=== PATIENT | female | born 1990 | race Caucasian/White ===

== ENCOUNTER 2021-07-08 08:18 | Outpatient (CLI) | payer BC, SELFPAY ==
[2021-07-08 09:07] LABS: Hemoglobin A1C 5.1 % (<5.7)
[2021-07-08 09:12] LABS: Anion Gap 9 mmol/L (8-16); Blood Urea Nitrogen 9 mg/dL (7-18); Calcium 9.1 mg/dL (8.5-10.1); Carbon Dioxide 29 mmol/L (21-32); Chloride 102 mmol/L (98-108); Cholesterol 180 mg/dL (0-200); Estimated Glomerular Filt Rate > 60; Glucose 114 mg/dL (70-99); HDL Direct 43 mg/dL (40-60); LDL Cholesterol Calculated 108 mg/dL (<130); Osmolality Calculated 289 mOsm/kg (285-295); Potassium 4.5 mmol/L (3.5-5.1); Sodium 140 mmol/L (136-145); Triglycerides 146 mg/dL (0-150)
== END 2021-07-08 08:19 | disposition home or self-care (01) ==
LOC: CHSLAB 08:23
PROVIDERS: PCP Internal Medicine; Visit Provider Internal Medicine
DX: Z00.00 Encounter for general adult medical examination without abnormal findings (principal)
CPT/HCPCS: 36415; 80048; 80061; 83036

== ENCOUNTER 2022-03-14 08:08 | Outpatient (CLI) | payer BC, SELFPAY ==
[2022-03-14 08:33] LABS: Hemoglobin A1C 5.3 % (<5.7)
[2022-03-14 08:56] LABS: Anion Gap 7 mmol/L (8-16); Blood Urea Nitrogen 11 mg/dL (7-18); Calcium 8.7 mg/dL (8.5-10.1); Carbon Dioxide 29 mmol/L (21-32); Chloride 106 mmol/L (98-108); Estimated Glomerular Filt Rate > 60; Glucose 96 mg/dL (70-99); Osmolality Calculated 293 mOsm/kg (285-295); Potassium 4.4 mmol/L (3.5-5.1); Sodium 142 mmol/L (136-145)
== END 2022-03-14 08:09 | disposition home or self-care (01) ==
LOC: CHSLAB 08:13
PROVIDERS: PCP Internal Medicine; Visit Provider Internal Medicine
DX: E16.2 Hypoglycemia, unspecified (principal)
CPT/HCPCS: 36415; 80048; 83036

== ENCOUNTER 2023-03-22 07:26 | Outpatient (CLI) | payer BC, SELFPAY ==
[2023-03-22 08:00] LABS: Hemoglobin A1C 5.5 % (<5.7)
[2023-03-22 08:34] LABS: Alanine Aminotransferase 25 U/L (14-59); Albumin Level 3.4 g/dL (3.4-5.0); Alkaline Phosphatase 81 U/L (46-116); Anion Gap 9 mmol/L (8-16); Aspartate Amino Transferase 11 U/L (15-37); Bilirubin,Total 0.4 mg/dL (0.00-1.00); Blood Urea Nitrogen 9 mg/dL (7-18); Calcium 9.4 mg/dL (8.5-10.1); Carbon Dioxide 28 mmol/L (21-32); Chloride 103 mmol/L (98-108); Cholesterol 152 mg/dL (0-200); Estimated Glomerular Filt Rate > 60; Glucose 92 mg/dL (70-99); HDL Direct 38 mg/dL (40-60); LDL Cholesterol Calculated 60 mg/dL (<130); Osmolality Calculated 288 mOsm/kg (285-295); Potassium 4.7 mmol/L (3.5-5.1); Sodium 140 mmol/L (136-145); Total Protein 7.1 g/dL (6.4-8.2); Triglycerides 271 mg/dL (0-150)
== END 2023-03-22 07:27 | disposition home or self-care (01) ==
LOC: CHSLAB 07:28
PROVIDERS: PCP Internal Medicine; Visit Provider Internal Medicine
DX: Z00.00 Encounter for general adult medical examination without abnormal findings (principal); E28.2 Polycystic ovarian syndrome
CPT/HCPCS: 36415; 80053; 80061; 83036

== ENCOUNTER 2024-03-20 06:58 | Outpatient (CLI) | payer BC, SELFPAY ==
[2024-03-20 08:46] LABS: Alanine Aminotransferase 27 U/L (14-59); Albumin Level 3.4 g/dL (3.4-5.0); Alkaline Phosphatase 69 U/L (46-116); Anion Gap 13 mmol/L (4-12); Aspartate Amino Transferase 11 U/L (15-37); Bilirubin,Total 0.2 mg/dL (0.00-1.00); Blood Urea Nitrogen 9 mg/dL (7-18); Calcium 8.5 mg/dL (8.5-10.1); Carbon Dioxide 22 mmol/L (21-32); Chloride 107 mmol/L (98-108); Cholesterol 170 mg/dL (0-200); Estimated Glomerular Filt Rate > 60; Glucose 96 mg/dL (70-99); HDL Direct 38 mg/dL (40-60); LDL Cholesterol Calculated 51 mg/dL (<130); Osmolality Calculated 292 mOsm/kg (285-295); Potassium 4.5 mmol/L (3.5-5.1); Sodium 142 mmol/L (136-145); Total Protein 7.1 g/dL (6.4-8.2); Triglycerides 406 mg/dL (0-150)
[2024-03-20 08:56] LABS: LDL Cholesterol Direct 73 mg/dL (0-130)
== END 2024-03-20 06:59 | disposition home or self-care (01) ==
LOC: CHSLAB 07:01
PROVIDERS: PCP Internal Medicine; Visit Provider Internal Medicine
DX: Z00.00 Encounter for general adult medical examination without abnormal findings (principal)
CPT/HCPCS: 36415; 80053; 80061; 83721

== ENCOUNTER 2024-07-05 14:53 | Emergency (ER) | payer BC, SELFPAY ==
--- OUTSIDE RECORDS SUMMARY | 2024-07-05 14:55 | XMS_ITS | Referral Summary ---
Author Organization [facility] Medical Office Building A Address [address] [place] [address] Care Team Providers Care Diesel Crane Operator Name Role Phone Siddhartha Jhaveri MD Primary Care Provider Encounters Date Type Department Care Team Description 07/02/2024 Orders Only [address] [address] Amalia Collier NP 07/01/2024 4:13 PM [employer] - 07/01/2024 11:59 PM [employer] Hospital Encounter [address] [address] Acute vaginitis Discharge Disposition: Discharge to home or self care 07/01/2024 3:15 PM [employer] Office Visit [facility] Replaced By [facility] at [address] [address] Ban Barton PA Acute vaginitis (Primary Dx) from Last 3 Months Allergies No known active allergies Medications albuterol HFA (ProAir HFA) 90 mcg/actuation inhaler Inhale 2 puffs every 4 (four) hours as needed for wheezing 1 Inhaler 11 Active omeprazole (PriLOSEC) 20 mg capsuleIndicati ons:Laryngophar yngeal reflux (LPR) TAKE 1 CAPSULE BY MOUTH EVERY DAY 90 capsule 3 2 Active diclofenac sodium (VOLTAREN) 1 % gel Apply 2 g topically 4 (four) times a day 100 g 3 Active topiramate (TOPAMAX) 50 mg tablet TAKE 1 TABLET BY MOUTH TWICE A DAY 180 tablet 3 4 Active omeprazole (PriLOSEC) 20 mg capsule TAKE 1 CAPSULE BY MOUTH EVERY DAY 90 capsule 3 4 Active busPIRone (BUSPAR) 10 mg tablet TAKE 1 TABLET BY MOUTH THREE TIMES A DAY 300 tablet 1 4 Active buPROPion XL (WELLBUTRIN XL) 300 mg 24 hr tabletIndicatio ns:Anxiety with Depression TAKE 1 TABLET (300 MG TOTAL) BY MOUTH EVERY MORNING THIS REPLACES LEXAPRO 100 tablet 1 4 08/09/19 25 Active metFORMIN XR (GLUCOPHAGE XR) 500 mg 24 hr tablet TAKE 2 TABLETS BY MOUTH DAILY WITH BREAKFAST. 180 tablet 4 Active metroNIDAZOLE (FLAGYL) 500 mg tablet Take 1 tablet (500 mg total) by mouth 2 (two) times a day for 7 days 14 tablet 5 07/08/19 25 Active Active Problems Problem Noted Date Diagnosed Date Severe obesity 03/27/2024 Moderate episode of recurrent major depressive d isorder 03/27/2024 Anxiety 07/30/2022 Assessment & Plan (10/07/2022 1:54 PM CDT): Improved. She is sleeping better with the Topamax at bedtime. She is also found that getting new glasses has helped with their dizziness Assessment & Plan (07/30/2022 1:29 PM PRECINCT POLICE LIEUTENANT): States she is in a better place right now with her life and doesn't feel as anxious as when the kids were little. Would like to go off lexapro instead of changing it. Decrease lexapro to 10mg x 2 weeks, then 5mg x 7 days, then stop. Pt is taking upwards of 10mg of melatonin up to 30mg. Also smokes marijuana on/off all day long. Discussed that melatonin can causes vertigo and possibly headaches. Marijuana user 07/30/2022 Assessment & Plan (07/30/2022 8:54 PM [employer]CIN[employer] POLICE [employer]IEUTENANT): Daily use Intractable headache 07/18/2022 Assessment & Plan (07/30/2022 1:29 PM [employer]IEUTENANT): Will try adding topamax 25mg at bedtime. D/c melatonin, which she is taking too much of. Could be contributing to vertigo and headaches. F/u 6 weeks Assessment & Plan (07/18/2022 3:00 PM [employer] POLICE LIEUTENANT): Having migraines with onset during sexual relations. She has tried propranolol a few times as given by NEIDA Zepeda last week without improvement. Will give indomethacin to try as alternative. Briefly discussed triptan. Will try indomethacin first. Discussed GI SE's. Will only take prn. Call if continues to have headaches COVID-19 07/18/2022 Assessment & Plan (07/18/2022 2:58 PM [employer] POLICE [employer]IEUTENANT): Discussed quarantine, offered paxlovid, discussed risks/benefits. Patient declines at this time. Symptoms are mild. Indomethacin given for current headache as well as future headaches prn. May f/u prn Diaphoresis 07/18/2022 Assessment & Plan (07/18/2022 2:59 PM PRECINCT POLICE LIEUTENANT): Having night sweats. She asked what they could be from. Discussed they could actually be from SE's of antidepressant. She expressed an interest in changing antidepressant. I told her she cannot just stop this medication and encouraged her to make a f/u in 1-2 weeks with provider to discuss changing antidepressant. Tobacco abuse 06/20/2021 Vocal process granuloma 09/19/2020 Assessment & Plan (09/19/2020 4:47 PM CDT): Continue omeprazole 40 mg daily for at least 2 more months, then may consider decreasing to 20 mg daily Follow up for recheck in 4 months for rescope to check Right posterior vocal fold granuloma Discussed MDL with removal of right vocal fold granuloma discussed but Millicent reported being unable to take any more time off of work right now Laryngopharyngeal reflux (LPR) 07/19/2020 Assessment & Plan (09/19/2020 4:44 PM CDT): Continue omeprazole 40 mg daily for at least 2 more months, then may consider decreasing to 20 mg daily Follow up for recheck in 4 months for rescope to check Right posterior vocal fold granuloma Assessment & Plan (07/19/2020 9:34 AM PREC[employer] POLICE LIEUTENANT): 64 ounces of caffeine free and soda free fluid daily Continue omeprazole 20 mg Follow up in 2 months to recheck right posterior vocal cord granuloma LPR discussed and Handout provided Depression 02/20/2018 Assessment & Plan (10/07/2022 1:53 PM CDT): Depression moderately improved. Will increase Wellbutrin XL to 300 mg once daily. Will let her follow-up with Dr. Jhaveri as scheduled in February for well visit but she may call if she has any problems or concerns in the interim HSV infection 10/29/2017 Overview (01/09/2018): -Treated for outbreak this -continue suppression Hospital plan -[place] Essential hypertension, benign 02/05/2017 Overview (01/09/2018): Continue Nifed 30XL Assessment & Plan (02/07/2017 9:46 AM CDT): Stable. Pt was advised of continuing heart healthy DASH diet, increase exercise as tolerated, and continuing to monitor for any lower leg edema, headaches, changes in vision, or facial flushing. Continue ASA and anti-hypertensives as prescribed. Polycystic ovary syndrome Resolved Problems Problem Noted Date Diagnosed Date Resolved Date Voice hoarseness 07/19/2020 07/18/2022 Assessment & Plan (07/19/2020 9:34 AM PRE[employer]IN[employer] POLICE [employer]IEUTENANT): 64 ounces of caffeine free and soda free fluid daily Continue omeprazole 20 mg Follow up in 2 months to recheck right posterior vocal cord granuloma Choking episode 07/19/2020 07/18/2022 Assessment & Plan (07/19/2020 9:22 PM [employer]): 64 ounces of caffeine free and soda free fluid daily Continue omeprazole 20 mg Follow up in 2 months to recheck right posterior vocal cord granuloma Ganglion cyst of volar aspect of right wrist 0 07/25/2020 Carpal tunnel syndrome of right wrist 03/04/2020 07/25/2020 Overview (03/04/2020): Added automatically from request for surgery [id number] Ganglion of right wrist 03/04/2020 03/0 05/2020 Overview (03/04/2020): Added automatically from request for surgery [id number] Paresthesia of hand, bilateral 10/09/2019 07/18/2022 Assessment & Plan (10/09/2019 9:20 AM CDT): D/T limited examination from telemedicine visit, but based on patient's presenting sx likely more BL median nerve disease recommending BL upper extremity nerve conduction testing along with consultation to plastic specialist for further evaluation. Pt was advised to Cnt. With wearing brace, modifying daily activities an attempt OTC analgesics creams an oral medication and further direction pending upcoming NCV, consultation Difficulty of mother performing 01/01/20 18 07/18/2022 Viral gastroenteritis 12/05/20172017 Overview (12/05/2017): Seen in [facility] 12/04 for n/v/d. MRI without appendicitis and e/o colitis. Rx for zofran/imodium for symptomatic relief Supervision of high-risk pre gnancy, third trimester 12/05/2017 01/23/2018 Overview (12/16/2017): Added automatically from request for surgery [id number] Chronic hypertension affecting 10/29/2017 01/09/2018 Overview (01/02/2018): -Previously discussed risks associated with cHTN -Baseline CBC and CMP wnl, 24 hr 315mg -Current regimen Nifedipine 30mg XL, will plan to increase as needed -Compliant with baby aspirin -plan for serial growths at 24 weeks, recommendations reviewed for 2x/weekly NSTs but patient states she can only come to [facility] 1x/week. Accepts risks, including stillbirth -continues to have headaches, rx previously sent for compazine, patient does not wish to take it -CBC, CMP wnl 12/24/17 UPC 0.3 (baseline 24 hr 315mg) - Steroids given 12/25 and 12/26. Plan for weekly labs- order placed -r/o for preE in 12/30 in the [facility], rx for fioricet -rC/S scheduled 01/09/18 at 11:30 -review of BP log 01/02 shows normal to mild range, no symptoms Assessment & Plan (12/24/2017 4:14 PM CDT): BP log reviewed. All blood pressures normal/mild range. Reviewed BP parameters and [facility] precautions Continues to have headaches that resolve with tylenol or rest, patient has rx for compazine but does not want to take it. Reviewed that compazine is safe in . Assessment & Plan (12/19/2017 4:47 PM CDT): BP log reviewed. All wnl Urine dip negative for protein Precautions and parameters reviewed again today Assessment & Plan (11/28/2017 3:35 PM CDT): - Normotensive today, reports occasional headaches that resolve with tylenol - Denies blurred or double vision - Strict [facility] precautions reviewed Assessment & Plan (11/14/2017 7:06 PM CDT): BP normal today, denies symptoms of preE Assessment & Plan (10/31/2017 3:13 PM CDT): BP normal today, denies symptoms of preE Previous section co mplicating 10/29/2017 01/09/2018 Overview (12/19/2017): - Repeat scheduled 01/13 at 11:30 with BTL Tobacco smoking affecting pr egnancy, antepartum 10/29/2017 01/09/2018 Overview (11/28/2017): - No longer interested in quitting - Reviewed importance of cessation at length - Patient will continue to consider Single umbilical artery affe cting management of mother, antepartum, single gestation 10/29/2017 01/09/2018 Overview (11/12/2017): -Single UA: previously reviewed risks for IUGR, already for serial growth US as above -Suboptimal heart views x2 on specialized - ECHO NORMAL Depression affecting 10/29/2017 01/09/2018 Overview (12/24/2017): -anxious but stable -denies history of depression or anxiety but states she has always been emotional and feels more emotional during -discussed referral for [facility], patient declines, contact information provided -Rx sent for lexapro 10 MG, patient no longer desires to start medication. Previously counseled on risks including TTN, delayed transition, PPHN -Reports feeling anxious about developing preE. Plan for weekly appointments until delivery. -Strict precautions reviewed -CTM Assessment & Plan (12/19/2017 4:46 PM CDT): Anxious today as this was the gestational age she delivered her last baby. Reassurance provided. Will continue to monitor Assessment & Plan (11/28/2017 3:37 PM CDT): - mood stable today Assessment & Plan (10/31/2017 3:17 PM CDT): Tearful and anxious again in the office today. States she is only emotional during appointments because she gets nervous that we are going to given her bad news. Reviewed recommendation for Lexapro. Continues to decline. Reviewed information for [facility]. Reports great support and denies SI/HI Supervision of other high ri sk , antepartum 10/29/2017 01/09/2018 Overview (01/09/2018): [] Co-management vs. [x] Full M Care Referring Provider: [x] Dating Criteria: DIAMOND 01/23/18 by 2T US [x] Labs: Rh [+], Ab [neg], Rubella [Imm], HIV [neg], HepBSAg [neg], RPR [NR] [x] Genetic Screening: counseled and declines [x] GC/CT: neg [x] UCx: + GBS, treated AIRAM neg [x] Pap: 05/31/17 neg [x] [facility] referral (if indicated): offered and declined [x] FMLA paperwork completed and faxed. 2nd Tri Labs: [x] Anatomy ultrasound: complete single UA [x] CBC: 11.3/32.8 plt 169 [x] 1hr gtt at 24-28wks: failed, GDM [x] Tdap (27-36wks) 3rd Tri Labs: [x] CBC/HIV/RPR [x] GBS- GBS + pyuria- for treatment in labor Counselling [x] MOD: Plan rCS 01/13/2018 at 38w4d 2/2 cHTN. Reviewed recommendation for 39 weeks but patient request date of 01/13. Per ACOG delivery between 38-39 weeks. C/S with BTL scheduled 01/13/2018 @ 1130 (arrival 0930). [x] MOC: BTL [x] Method of feeding: plans to breastfeed [x] PP Depression Discussed Assessment & Plan (10/31/2017 3:18 PM CDT): -Reports increased discharge -Speculum exam with normal discharge -Precautions reviewed Gestational diabetes mellitus, antepartum 10/29/2017 01/09/2018 Overview (01/09/2018): -Metformin 500mg BID started 10/24 -Reviewed 12/24/17- no changes -Sending weekly BS logs for review -s/p steroids -good control Hospital plan -Accucheck on arrival -PP fasting accucheck Assessment & Plan (12/24/2017 4:09 PM CDT): BS log reviewed with excellent control Assessment & Plan (12/19/2017 4:45 PM CDT): Excellent control. Assessment & Plan (11/28/2017 3:35 PM CDT): - BS log reviewed with good control. No changes at this time Assessment & Plan (11/14/2017 7:08 PM CDT): Excellent control, no changes made today Assessment & Plan (10/31/2017 3:18 PM CDT): BS log reviewed with excellent control. Will continue on current regimen UTI in 09/09/2017 01/23/2018 History of severe pre-eclampsia 09/03/2017 07/18/2022 Previous delivery, antepartum 07/25/2017 01/23/2018 Pharyngitis 04/16/2017 10/29/2017 Assessment & Plan (04/16/2017 1:35 PM [employer]ENANT): Strep screen neg and aba setup a culture. Gargle with 1/2 peroxide and water several time s a day Bilateral serous otitis media 04/16/2017 10/29/2017 Assessment & Plan (04/16/2017 1:34 PM [employer] POL[employer] LIEUTENANT): ers are not infected. The bluntingo fthehhering is fromt he fluid in ear. Trial flonase and see if helpful BMI 37.0-37.9, adult 02/07/2017 023 Assessment & Plan (02/07/2017 9:46 AM CDT): Recommended patient to continue to increase heart healthy diet with adequate fruits, vegetables, and plenty of water along with mild-moderate daily exercise as tolerated. Pansinusitis 02/07/2017 10/29/2017 Assessment & Plan (02/07/2017 9:47 AM CDT): Recommended Flonase [id number] to assist with inter nasal congestion along with Ceftin 250 b.i.d. times 10 days patient was advised to follow up with us regarding any persistence or any worsening of symptoms regarding this condition. Abnormal liver enzymes 10/11/201510/29 Overview (08/30/2016): Elevated liver enzymes Calculus of gallbladder 09/26/201509/2017 Overview (08/30/2016): Gallstone Low back pain 10/25/2011 10/29/2017 Overview (08/31/2016): LUMBAGO Supervision of normal 12/31/2017 Carpal tunnel syndrome of left wrist 07/18/2022 Immunizations Name Administration Dates Next Due DTP 02/15/1995, 2,06/24/1990,03/27/1990,0 01/07/1990 Hep B, Adolescent or Pediatric 05/10/1999,1998 Hib (HbOC) 04/14/1991,09/29/1990,06/24/1990 ,03/27/1990 Influenza, Unspecified 03/27/2024(Deferr ed: Patient Refused),03/27/2024(Deferred: Patient Refused),03/22/2023(Deferred: Patient Refused),07/18/2022,07/12/2022(Deferred: Patient Refused),02/24/2021,02/24/2021(Deferred: Patient Refused),01/25/2021(Deferred: Patient Refused),07/01/2020(Deferred: Patient Refused),02/25/2020(Deferred: Patient Refused),05/14/2019(Deferred: Patient Refused),02/24/2019(Deferred: Patient Refused),02/24/2018(Deferred: Patient Refused) MMR 02/15/1995,04/14/1991 OPV 02/15/1995,05/29/1991,03/27/1990 ,01/07/1990 Tdap 10/31/2017 Varicella 02/15/1995 Social History Tobacco Use Types Packs/Day Years Used Date Smoking Tobacco: Every Day Cigarettes Smokeless Tobacco: Never Tobacco Cessation:Ready to Q uit: Not Asked; Counseling Given: Not Answered Comments:Smoking History Packs/day: 8 Cigarettes Alcohol Use Standard Drinks/Week Comments [...] on file Legal Sex Female 12:32 AM [employer]CINCT [employer] L[employer]ENANT Gender Identity Not on file Sexual Orientation Not on file Last Filed Vital Signs Vital Sign Reading Time Taken Comments Blood Pressure 121/88 07/01/2024 3:21 PM [employer]IE[employer]ENANT Pulse 83 07/01/2024 3:21 PM [employer]CT POLICE LIEUTENANT Temperature 36.9 C (98.5 F) 07/01/2024 3:21 PM [employer]CT POLICE LIEUTENANT Respiratory Rate 18 07/01/2024 3:21 PM [employer]CINCT POLICE LIEUTENANT Oxygen Saturation 99% 07/01/2024 3:21 PM [employer]CINCT POLICE LIEUTENANT Inhaled Oxygen Concentration - - Weight 90.9 kg (200 lb 8 oz) 07/01/2024 3:21 PM [employer] POLICE LIE[employer]ENANT Height 157.5 cm (5' 2.01 ) 07/01/2024 3:21 PM CS T Body Mass Index 36.66 07/01/2024 3:21 PM [employer]CT POLICE LIEUTENANT Plan of Treatment Not on file Procedures Procedure Name Priority Date/Time Associated Diagnosis Comments VAGINITIS PANEL Routine 07/01/2024 4:13 PM [employer] Acute vaginitis from Last 3 Months Results * (ABNORMAL) Vaginitis panel Vaginal (07/01/2024 4:13 PM [employer] POL[employer] L[employer]ENANT) Abbi DNA probe Not Detected Not Detected Comment:Testing performed by : [facility], [address] [place] [address]., [id number] Gardnerella DNA probe Detected(A) Not Detected [facility] Comment:Testing performed by : [facility], [address] [place] [address]., [id number] Trichomonas DNA probe Not Detected Not Detected [facility] Comment: Interpretive Data Testing performed by [facility] via [employer] VPIII Microbial Identification Test, a DNA probe test for use in the detection and identification of Abbi species, Gardnerella vaginalis and Trichomonas vaginalis nucleic acid in vaginal fluid specimens from patients with symptoms of vaginitis/vaginosis. Negative results for these tests suggest the patient does not have candidiasis, bacterial vaginosis and/or trichomoniasis when consistent with clinical signs and symptoms. Current interpretive data was last revised on 2020. Testing performed by: [facility], [facility], [place]., [address] Vaginal 07/01/2024 4:13 PM [employer] POLICE L[employer]ENANT 07/02/2024 1:06 PM [employer]CT POL[employer] LIEUTENANT us Ban [facility] - GENER AL ORDERABLES Final Result [facility] [id number] [place] [address] from Last 3 Months Insurance [employer] [place] [employer] [place] Advance Directives For more information, please contact: [phone] * Full Code (Latest Code Status on File) Date Activated Date Inactivated Comments 01/09/2018 4:20 PM 01/11/2018 6:59 PM * Full Code Date Activated Date Inactivated Comments 01/09/2018 7:54 AM 01/09/2018 4:20 PM Full CPR in case of cardiopulmonary arrest * Full Code Date Activated Date Inactivated Comments 12/05/2017 3:33 AM 12/05/2017 7:02 AM Care Teams Diesel Crane Operator Relationship Specialty Start Date End Date Siddhartha Jhaveri MD PCP - General 10/14/17
--- OUTSIDE RECORDS SUMMARY | 2024-07-05 14:55 | XMS_ITS | Clinical Summary ---
Author Organization [facility] Address [address] [place] [address] Phone Care Team Providers Care International Flight Attendant Name Role Phone Siddhartha Jhaveri MD Primary Care Provider Allergies No known active allergies Medications Vit-Fe Fumarate-FA ( VITAMIN PO) Take by mouth. Active Aspirin 81 MG Tablet Take 81 mg by mouth daily. Active escitalopram (LEXAPRO) 10 MG Tablet Take 10 mg by mouth daily. Active NIFEdipine CR (PROCARDIA-XL) 30 MG TABLET SR 24 HR Take 30 mg by mouth daily. Active Social History Tobacco Use Types Packs/Day Years Used Date Smoking Tobacco: Every Day Cigarettes Smokeless Tobacco: Never Alcohol Use Standard Drinks/Week Comments No 0 (1 standard drink = 0.6 oz pur e alcohol) Comments Unknown Sex and Gender Information Value Date Recorded Sex Assigned at Not on file Legal Sex Female 9:10 PM CDT Gender Identity Not on file Sexual Orientation Not on file Last Filed Vital Signs Vital Sign Reading Time Taken Comments Blood Pressure 148/91 06/17/2017 6:15 PM BEET END SUPERVISOR Pulse 75 06/17/2017 6:15 PM BEET END SUPERVISOR Temperature 36.4 C (97.6 F) 06/17/2017 1:38 PM BEET END SUPERVISOR Respiratory Rate 18 06/17/2017 6:15 PM BEET END SUPERVISOR Oxygen Saturation 98% 06/17/2017 6:15 PM BEET END SUPERVISOR Inhaled Oxygen Concentration - - Weight 108.9 kg (240 lb) 06/17/2017 1:38 PM BEET END SUPERVISOR Height 162.6 cm (5' 4 ) 06/17/2017 1:38 PM BEET END SUPERVISOR Body Mass Index 41.2 06/17/2017 1:38 PM BEET END SUPERVISOR Plan of Treatment Not on file Care Teams International Flight Attendant Relationship Specialty Start Date End Date Siddhartha Jhaveri MD [address] [place] [address] DR CLEANING [address] [place] [id number] PCP - General Internal Medicine 06/17/17
--- OUTSIDE RECORDS SUMMARY | 2024-07-05 14:55 | XMS_ITS | Encounter Summary ---
Author Organization [facility] Address [address] [place] [address] Phone Care Team Providers Care Heel Seam Rubber Name Role Phone Max Granados MD Primary Care Provider + [phone] Siddhartha Jhaveri MD Primary Care Provider Max Granados MD Primary Care Provider + [phone] Max Granados MD Primary Care Provider + [phone] Max Granados MD Primary Care Provider + [phone] Max Granados MD Primary Care Provider + [phone] Max Granados MD Primary Care Provider + [phone] Siddhartha Jhaveri MD Primary Care Provider Siddhartha Jhaveri MD Primary Care Provider Encounter Details Date Type Department Care Team (Latest Contact Info) Description 07/26/2017 Orders Only [facility] CONVERSION Scanning, Provider Social History Tobacco Use Types Packs/Day Years Used Date Smoking Tobacco: Every Day Smokeless Tobacco: Current Comments:Smoking History Pac ks/day: 8 Cigarettes Alcohol Use Standard Drinks/Week Comments Yes 0 (1 standard drink = 0.6 oz pur e alcohol) Comments No Sex and Gender Information Value Date Recorded Sex Assigned at Not on file Legal Sex Female 12:32 AM 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 Gender Identity Not on file Sexual Orientation Not on file documented as of this encounter Plan of Treatment Not on file documented as of this encounter Procedures Procedure Name Priority Date/Time Associated Diagnosis Comments OBSTETRIC/GYNECOLOGY ULTRASONOGRAPHY REPORT 08/22/2017 4:06 PM CDT OBSTETRIC/GYNECOLOGY ULTRASONOGRAPHY REPORT 07/26/2017 10:07 AM TAPING 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 documented in this encounter Results * OBSTETRIC/GYNECOLOGY ULTRASONOGRAPHY REPORT (08/22/2017 4:06 PM CDT) Anatomical Region Laterality Modality Ultrasound us Provider Scanning IMG OB US PROCEDURES Final Res ult * OBSTETRIC/GYNECOLOGY ULTRASONOGRAPHY REPORT (07/26/2017 10:07 AM TAPING 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) Anatomical Region Laterality Modality Ultrasound us Provider Scanning IMG OB US PROCEDURES Final Res ult documented in this encounter Visit Diagnoses Not on filedocumented in this encounter Additional Health Concerns Infection Onset Date Last Indicated Resolved Time COVID: Suspected 07/18/2022 07/18/2022 07/18/2022 12:57 PM TAPING 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 COVID19 07/18/2022 07/18/2022 07/28/2022 3:05 AM TAPING 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 COVID: Recovered Comment:Added based on recent COVID infection. 07/28/2022 07/30/2022 10/26/2022 3:05 AM C DT documented as of this encounter Care Teams Heel Seam Rubber Relationship Specialty Start Date End Date Max Granados MD [address] [place] [address] PCP - General 07/26/17 07/26/17 Siddhartha Jhaveri MD [address] [place] [address] PCP - General 07/27/17 08/15/17 Max Granados MD [address] [place] [address] PCP - General 08/16/17 08/21/17 Max Granados MD [address] [place] [address] PCP - General 08/22/17 09/02/17 Max Granados MD [address] [place] [address] PCP - General 09/03/17 09/03/17 Max Granados MD [address] [place] [address] PCP - General 09/04/17 10/02/17 Max Granados MD [address] [place] [address] PCP - General 10/03/17 10/03/17 Siddhartha Jhaveri MD [address] [place] [address] PCP - General 10/04/17 10/13/17 Siddhartha Jhaveri MD [address] [place] [address] PCP - General 10/14/17 documented as of this encounter
--- OUTSIDE RECORDS SUMMARY | 2024-07-05 14:55 | XMS_ITS | Encounter Summary ---
Author Organization [facility] Address [address] [place] [address] Phone Care Team Providers Care Lodging Facilities Attendant Name Role Phone Max Granados MD Primary Care Provider + [phone] Max Granados MD Primary Care Provider + [phone] Max Granados MD Primary Care Provider + [phone] Siddhartha Jhaveri MD Primary Care Provider Siddhartha Jhaveri MD Primary Care Provider Encounter Details Date Type Department Care Team (Latest Contact Info) Description 09/03/2017 Orders Only WU CONVERSION Scanning, Provider Social History Tobacco Use Types Packs/Day Years Used Date Smoking Tobacco: Every Day Smokeless Tobacco: Current Comments:Smoking History Pac ks/day: 8 Cigarettes Alcohol Use Standard Drinks/Week Comments Yes 0 (1 standard drink = 0.6 oz pur e alcohol) Comments No Sex and Gender Information Value Date Recorded Sex Assigned at Not on file Legal Sex Female 12:32 AM 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 Gender Identity Not on file Sexual Orientation Not on file documented as of this encounter Plan of Treatment Not on file documented as of this encounter Procedures Procedure Name Priority Date/Time Associated Diagnosis Comments OBSTETRIC/GYNECOLOGY ULTRASONOGRAPHY REPORT 10/03/2017 4:45 PM CDT OBSTETRIC/GYNECOLOGY ULTRASONOGRAPHY REPORT 09/03/2017 12:23 PM CDT documented in this encounter Results * OBSTETRIC/GYNECOLOGY ULTRASONOGRAPHY REPORT (10/03/2017 4:45 PM CDT) Anatomical Region Laterality Modality Ultrasound us Provider Scanning IMG OB US PROCEDURES Final Res ult * OBSTETRIC/GYNECOLOGY ULTRASONOGRAPHY REPORT (09/03/2017 12:23 PM CDT) Anatomical Region Laterality Modality Ultrasound us Provider Scanning IMG OB US PROCEDURES Final Res ult documented in this encounter Visit Diagnoses Not on filedocumented in this encounter Additional Health Concerns Infection Onset Date Last Indicated Resolved Time COVID: Suspected 07/18/2022 07/18/2022 07/18/2022 12:57 PM 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 COVID19 07/18/2022 07/18/2022 07/28/2022 3:05 AM 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 COVID: Recovered Comment:Added based on recent COVID infection. 07/28/2022 07/30/2022 10/26/2022 3:05 AM C DT documented as of this encounter Care Teams Lodging Facilities Attendant Relationship Specialty Start Date End Date Max Granados MD [address] [place] [address] PCP - General 09/03/17 09/03/17 Max Granados MD [address] [place] [address] PCP - General 09/04/17 10/02/17 Max Granados MD [address] [place] [address] PCP - General 10/03/17 10/03/17 Siddhartha Jhaveri MD [address] [place] [address] PCP - General 10/04/17 10/13/17 Siddhartha Jhaveri MD [address] [place] [address] PCP - General 10/14/17 documented as of this encounter
--- OUTSIDE RECORDS SUMMARY | 2024-07-05 14:55 | XMS_ITS | Clinical Summary ---
Author Organization [facility] Address [address] [place] [address] Phone Care Team Providers Care Roll Hauler Name Role Phone RAMEZ CONSTANTINO MD Unavailable [phone] Reason for Visit and Chief Complaint The Chief Complaint is: WWE Problems Includes: Problems addressed during this encounter and other active Problems Current Visit Onset Date Resolved Date Provider Conditio n Status History of Breast Disorders 07/08/2017 Unknown RAMEZ CONSTANTINO MD Resolved Last Documented On 07/23/2018 11:26AM ; [facility] Note: was Closed. History of Depression 07/08/2017 Unknown RAMEZ CONSTANTINO MD Resolved Last Documented On 07/23/2018 11:26AM ; [facility] Note: was Closed. Past Visits Onset Date Resolved Date Provider Condition Status Hypertension Systemic 02/01/2017 SHAILESH DUMONT NP-BC Active Last Documented On 7 9:39AM ; [facility] Risk: Tobacco Use 01/24/2016 SHAILESH DUMONT NP -BC Active Last Documented On 6 2:51PM ; [facility] Plan of Treatment - Clinical summary provided to patient - Last Documented On 02/25/2020 3:46PM ; [facility] Instructions to patient Instructions for patient : B reast Self Exam discussed Last Documented On 0 3:20PM ; [facility] Lose weight Last Documented On 0 3:20PM ; [facility] Education and Decision Aids were provided during visit for: Patient Education: Daily shima cium and vitamin D Last Documented On 0 3:20PM ; [facility] Patient Education: weight be aring exercise Last Documented On 0 3:20PM ; [facility] Smoking cessation advised Last Documented On 0 3:46PM ; [facility] Assessments Includes: Assessments from this encounter Findings - NORMAL FEMALE EXAM [Z01.419 - Encounter for gynecological examination (general) (routine) without abnormal findings] - Last Documented On 02/25/2020 3:46PM ; [facility] Instructions Includes: Instructions from this encounter Instructions to patient Instructions for patient : B reast Self Exam discussed Last Documented On 0 3:20PM ; [facility] Lose weight Last Documented On 0 3:20PM ; [facility] Education and Decision Aids were provided during visit for: Patient Education: Daily shima cium and vitamin D Last Documented On 0 3:20PM ; [facility] Patient Education: weight be aring exercise Last Documented On 0 3:20PM ; [facility] Smoking cessation advised Last Documented On 0 3:46PM ; [facility] Medical Equipment - Implanted Devices Includes: Current Devices No Medical Equipment Recorded Medications Includes: Medications discussed during this encounter and other current Medications Discontinued / Stopped on this date RAMEZ CONSTANTINO MD on 07/12/2017 Ampicillin 500MG Oral Capsule Provider: RAMEZ CONSTANTINO MD Diagnosis: Last Documented On 0 3:28PM By MARIANNA MOELLER LPN ; [facility] Adult Aspirin EC Low Strength 81MG Oral Tablet Delayed Release Provider: Diagnosis: Last Documented On 0 3:28PM By MARIANNA MOELLER LPN ; [facility] Current Medications (continue as prescribed) Escitalopram Oxalate 5MG Oral Tablet 07/08/2017 Prov ider: Diagnosis: Last Documented On 8 4:11PM By GRACIELA OLEA ; [facility] Albuterol Sulfate (2.5 MG/3ML) 0.083% Nebulizati on solution 08/01/2015 Provider: Diagnosis: Last Documented On 08/01/2015 2:59PM By MARQUES HDEZ CMA ; [facility] Past Medications on file Procardia XL 30MG Oral Table t Extended Release 24 Hour 08/29/2017 - 11/27/2017 Provider: SHAILESH MIRANDA WHNP-BC Diagnosis: One tablet daily Last Documented On 8 3:53PM By SHAILESH DUMONT [facility] ; [facility] Terazol 7 0.4% Vaginal Cream 06/24/2017 - 07/24/2017 P rovider: SHAILESH DUMONT [facility] Diagnosis: as directed - insert one jasmin licator full pv q hs x 7 nocs Last Documented On 8 9:51AM By SHAILESH DUMONT [facility] ; [facility] Angie 0.35 MG Tablet 12/27/2015 - 01/24/2016 Provider : AUDRA GARNER MD Diagnosis: One tablet daily Last Documented On 12/27/2015 3:23PM By AUDRA GARNER MD ; [facility] NIFEdipine ER 30 MG Tablet, extended-release 24 hour 08/09/2015 - 09/23/2015 Provider: AUDRA MOISE MD Diagnosis: ii po daily at same time Last Documented On 08/09/2015 3:19PM By AUDRA GARNER MD ; [facility] Cephalexin 500 MG Tablet 08/05/2015 - 08/15/2015 Provi alba: AUDRA GARNER MD Diagnosis: One tablet four times a day Last Documented On 08/05/2015 11:27AM By AUDRA GARNER MD ; [facility] Hydrocodone-Acetaminophen 5- 325 MG Tablet 08/01/2015 - 08/04/2015 Provider: AUDRA GARNER MD Diagnosis: 1-2 every 4-6 hours as needed Last Documented On 08/01/2015 3:00PM By AUDAR GARNER MD ; [facility] Breast Pump Miscellaneous 07/19/2015 - 07/18/2016 Provider: AUDRA GARNER MD Diagnosis: Encounter for ca re and examination of lactating mother as directed Last Documented On 07/19/2015 4:31PM By AUDRA GARNER MD ; [facility] ValACYclovir HCl 1 GM Tablet 07/14/2015 - 09/12/2015 P rovider: AUDRA GARNER MD Diagnosis: One tablet daily Last Documented On 07/14/2015 8:43AM By AUDRA GARNER MD ; [facility] Triveen-Duo DHA 29-1-200 & 4 00 MG Miscellaneous 01/27/2015 - 10/24/2015 Provider: AUDRA GARNER MD Diagnosis: One tablet daily Last Documented On 01/27/2015 10:08AM By AUDRA GARNER MD ; [facility] Bactrim DS 800-160 MG OR TABS 05/16/2011 - 05/19/2011 Provider: SHAILESH PAPPAS Diagnosis: Last Documented On 1 11:57AM By SHAILESH PAPPAS ; [facility] THEODORA 3-0.02 MG OR TABS 04/18/2011 - 04/12/2012 Provider : SHAILESH PAPPAS Diagnosis: Last Documented On 1 10:25AM By SHAILESH PAPPAS ; [facility] Bactrim DS 800-160 MG OR TABS 08/17/2009 - 08/20/2009 Provider: SHAILESH PAPPAS Diagnosis: Last Documented On 0 3:26PM By SHAILESH PAPPAS ; [facility] Bactrim DS 800-160 MG OR TABS 05/02/2009 - 05/05/2009 Provider: Diagnosis: Last Documented On 06/14/2009 12:23PM By CARMENCITA AVERY ; [facility] [place] 3-0.02 MG OR TABS 02/09/2009 - 02/04/2010 Provider : Diagnosis: Last Documented On 06/14/2009 12:24PM By CARMENCITA AVERY ; [facility] Medications Administered Includes: Administered Medications from this encounter No Administered Medications Recorded Vital Signs Includes: Vital Signs from this encounter Vital Name 02/25/2020 03:18P Blood Pressure Sitting (mmHg) 120/78 Temp-Oral (F) 97.5 Height (in) 64 Weight (lb) 236 Body Mass Index (kg/m2) 40.5 Body Surface Area (m2) 2.1 Last Documented: On 02/25/2020 3:25PM ; [facility] Results Includes: Results discussed during this encounter No Results Recorded For Specified Dates History of Present Illness Includes: History of Present Illness from this encounter TOÑITO QUINTERO is a 29 year old female. - Allergy list reviewed - Medication reconciliation performed - Medication list reviewed - PRIMARY CARE PROVIDER : Social History Description Last Updated Sexually active with 1 partners in the l ast year 02/25/2020 Last Documented On 0 3:46PM ; [facility] Smoking Status Unknown Procedures and Surgical History Includes: Procedures from this encounter Procedures Code Diagnosis Performing Provider Service L ocation Service Date low fat diet Last Documented On 0 3:20PM ; [facility] Cervical Pap Smear performed [id number] Last Documented On 0 3:20PM ; [facility] Surgical History Last Updated History of tubal ligation 02/25/2020 Last Documented On 0 3:46PM ; [facility] History of cholecystectomy 02/25/2020 Last Documented On 0 3:46PM ; [facility] History of surgery gallbladder removal 1 Last Documented On 0 3:46PM ; [facility] Surgical / procedural history c/s 2019 Last Documented On 0 3:46PM ; [facility] Medical History Includes: Medical History addressed during this encounter Description Last Updated Para 2 02/25/2020 Last Documented On 0 3:46PM ; [facility] Sexually active 02/25/2020 Last Documented On 0 3:46PM ; [facility] LMP: 02/18/2020 02/25/2020 Last Documented On 0 3:46PM ; [facility] 2 02/25/2020 Last Documented On 0 3:46PM ; [facility] History of asthma 02/25/2020 Last Documented On 0 3:46PM ; [facility] History of benign essential hypertension 02/25/2020 Last Documented On 0 3:46PM ; [facility] History of breast disorders FOB [place] br [place] cancer 02/25/2020 Last Documented On 0 3:46PM ; [facility] History of depression MOB an d FOB and both families: pt previously on meds at 22 y old x 2 yrs: unsure of med; no meds in last preg; no post depression; 02/25/2020 Last Documented On 0 3:46PM ; [facility] Family History Includes: Family History addressed during this encounter No Family History Recorded Review of Systems Includes: Review of Systems from this encounter Gastrointestinal: No pelvic pain. Genitourinary: No menorrhagia. No dysmenorrhea and no bleeding between periods. No vaginal discharge. Mental Status Includes: Mental Status from this encounter No Mental Status Recorded Functional Status Includes: Functional Status from this encounter No Functional Status Recorded Physical Exam Includes: Physical Exam from this encounter Allergies Includes: Active Allergies No Known Allergies Encounters Encounter Provider Location Date Check-In Time Check-Out Time Diagnosis WELL WOMAN EXAM SHAILESH DUMONT [facility] 02/25/20 20 3:30PM 3:46PM Normal Female Exam Insurance Includes: Active Insurance Policies Plan Name Member ID Group # Subscriber Relationship Effect beatris Dates 1 - [facility] [id number] AJAY QUINTERO Se lf Clinical Notes Includes: Clinical Notes from this encounter No Clinical Notes Recorded
--- OUTSIDE RECORDS SUMMARY | 2024-07-05 14:55 | XMS_ITS | Clinical Summary ---
Author Organization [facility] A Address [address] [place] [address] Care Team Providers Care Service Specialist Name Role Phone Siddhartha Jhaveri MD Primary Care Provider Allergies No known active allergies Medications albuterol HFA (ProAir HFA) 90 mcg/actuation inhaler Inhale 2 puffs every 4 (four) hours as needed for wheezing 1 Inhaler 11 1 Active omeprazole (PriLOSEC) 20 mg capsuleIndicati ons:Laryngophar [...] dizziness Assessment & Plan (07/30/2022 1:29 PM APPLICATION PROJECT LEADER): States she is in a better place [...] 07/30/2022 Assessment & Plan (07/30/2022 8:54 PM APPLICATION PROJECT LEADER): Daily use Intractable headache 07/18/2022 Assessment & Plan (07/30/2022 1:29 PM APPLICATION PROJECT LEADER): Will try adding topamax 25mg at bedtime. D/c melatonin, which she is taking too much of. Could be contributing to vertigo and headaches. F/u 6 weeks Assessment & Plan (07/18/2022 3:00 PM APPLICATION PROJECT LEADER): Having migraines with onset during sexual relations. She has tried propranolol a few times as given by NEIDA Zepeda last week without improvement. Will give indomethacin to try as alternative. Briefly discussed triptan. Will try indomethacin first. Discussed GI SE's. Will only take prn. Call if continues to have headaches COVID-19 07/18/2022 Assessment & Plan (07/18/2022 2:58 PM APPLICATION PROJECT LEADER): Discussed quarantine, offered paxlovid, discussed risks/benefits. Patient declines at this time. Symptoms are mild. Indomethacin given for current headache as well as future headaches prn. May f/u prn Diaphoresis 07/18/2022 Assessment & Plan (07/18/2022 2:59 PM APPLICATION PROJECT LEADER): Having night sweats. She asked what they [...] granuloma Assessment & Plan (07/19/2020 9:34 AM APPLICATION PROJECT LEADER): 64 ounces of caffeine free and soda [...] 07/18/2022 Assessment & Plan (07/19/2020 9:34 AM APPLICATION PROJECT LEADER): 64 ounces of caffeine free and soda free fluid daily Continue omeprazole 20 mg Follow up in 2 months to recheck right posterior vocal cord granuloma Choking episode 07/19/2020 07/18/2022 Assessment & Plan (07/19/2020 9:22 PM APPLICATION PROJECT LEADER): 64 ounces of caffeine free and soda free fluid daily Continue omeprazole 20 mg Follow up in 2 months to recheck right posterior vocal cord granuloma Ganglion cyst of volar aspect of right wrist 0 07/25/2020 Carpal tunnel syndrome of right wrist 03/04/2020 07/25/2020 Overview (03/04/2020): Added automatically from request for surgery [id number] Ganglion of right wrist 03/04/2020 03/0 05/2020 Overview (03/04/2020): Added automatically from request for surgery [id number] Paresthesia of hand, bilateral 10/09/2019 07/18/2022 Assessment [...] Viral gastroenteritis 12/05/20172017 Overview (12/05/2017): Seen in [facility] 12/04 for n/v/d. MRI without appendicitis and e/o colitis. Rx for zofran/imodium for symptomatic relief Supervision of high-risk pre gnancy, third trimester 12/05/2017 01/23/2018 Overview (12/16/2017): Added automatically from request for surgery [id number] Chronic hypertension affecting 10/29/2017 01/09/2018 Overview (01/02/2018): [...] -r/o for preE in 12/30 in the [facility], rx for fioricet -rC/S scheduled 01/09/18 at 11:30 -review of BP log 01/02 shows normal to mild range, no symptoms Assessment & Plan (12/24/2017 4:14 PM CDT): BP log reviewed. All blood pressures normal/mild range. Reviewed BP parameters and WAC precautions Continues to have headaches that resolve [...] Denies blurred or double vision - Strict WAC precautions reviewed Assessment & Plan (11/14/2017 7:06 [...] denies SI/HI Supervision of other high ri , antepartum 10/29/2017 01/09/2018 Overview (01/09/2018): [] Co-management vs. [x] Full [facility] Care Referring Provider: [x] Dating Criteria: DIAMOND [...] 10/29/2017 Assessment & Plan (04/16/2017 1:35 PM APPLICATION PROJECT LEADER): Strep screen neg and aba setup a culture. Gargle with 1/2 peroxide and water several time s a day Bilateral serous otitis media 04/16/2017 10/29/2017 Assessment & Plan (04/16/2017 1:34 PM APPLICATION PROJECT LEADER): ers are not infected. The bluntingo fthehhering [...] Plan (02/07/2017 9:47 AM CDT): Recommended Flonase [id number] to assist with inter nasal congestion along with Ceftin 250 b.i.d. times 10 days patient was advised to follow up with us regarding any persistence or any worsening of symptoms regarding this condition. Abnormal liver enzymes 10/11/201510/29 Overview (08/30/2016): Elevated liver enzymes Calculus of gallbladder 09/26/2015 0609/2017 Overview (08/30/2016): Gallstone Low back pain 10/25/2011 10/29/2017 Overview (08/31/2016): LUMBAGO Supervision of normal 12/31/2017 Carpal tunnel syndrome of left wrist 07/18/2022 Encounters Date Type Department Care Team Description 07/02/2024 Orders Only [address] [id number] Amalia Collier NP 07/01/2024 4:13 PM APPLICATION PROJECT LEADER - 07/01/2024 11:59 PM APPLICATION PROJECT LEADER Hospital Encounter [address] [id number] Acute vaginitis Discharge Disposition: Discharge to home or self care 07/01/2024 3:15 PM APPLICATION PROJECT LEADER Office Visit [facility] [address] [address] Ban Barton PA Acute vaginitis (Primary Dx) from Last 3 Months Immunizations Name Administration Dates Next Due DTP 02/15/1995, 2,06/24/1990,03/27/1990,0 01/07/1990 Hep B, Adolescent or Pediatric 05/10/1999,1998 Hib (HbO) 04/14/1991,09/29/1990,06/24/1990 ,03/27/1990 Influenza, Unspecified 03/27/2024(Deferr ed: Patient Refused),03/27/2024(Deferred: Patient Refused),03/22/2023(Deferred: Patient Refused),07/18/2022,07/12/2022(Deferred: Patient Refused),02/24/2021,02/24/2021(Deferred: Patient Refused),01/25/2021(Deferred: Patient Refused),07/01/2020(Deferred: Patient Refused),02/25/2020(Deferred: Patient Refused),05/14/2019(Deferred: Patient Refused),02/24/2019(Deferred: Patient Refused),02/24/2018(Deferred: Patient Refused) MMR 02/15/1995,04/14/1991 OPV 02/15/1995,05/29/1991,03/27/1990 ,01/07/1990 Tdap 10/31/2017 Varicella 02/15/1995 Surgical History Surgery Date Site/Laterality Comments SECTION section LAPAROSCOPIC CHOLECYSTECTOMY 05/27/2015 - 05/26/2016 Cholecystectomy, laparoscopic [place] DELIVERY ONLY Section - (Added by TW Conv) [place] CHOLECYSTECTOMY Cholecystectomy - (Added by TW Conv) SECTION CHOLECYSTECTOMY WISDOM TOOTH EXTRACTION FOOT SURGERY TUBAL LIGATION Medical History Medical History Date Comments Polycystic ovary syndrome Hypertension during Polycystic ovarian disease Depression Chronic bronchitis (HCC) Ganglion cyst of volar aspec t of right wrist 03/04/2020 Carpal tunnel syndrome of right wrist 03/04/2020 Added automatically from request for surgery [id number] History of severe pre-eclampsia 09/03/2017 Choking episode 07/19/2020 Paresthesia of hand, bilateral 10/09/2019 Carpal tunnel syndrome of left wrist Voice hoarseness 07/19/2020 Family History Medical History Relation Name Comments Other Brother 3 Alive and well; Other Brother 4 Alive and well; Other Father Alive and well; Other Mother Alive and well; Relation Name Status Comments Brother 1 Alive Brother 2 Alive Brother 3 Brother 4 Father Alive Mother Alive Social History Tobacco Use Types Packs/Day Years [...] on file Legal Sex Female 12:32 AM APPLICATION PROJECT LEADER Gender Identity Not on file Sexual Orientation Not on file Obstetrics History Para Term AB IAB SAB Ectopic Multiple Livin g Live Births 2 2 1 1 0 0 0 0 0 2 2 Date Outcome GA Total Labor Labor/2nd/3rd Weight Sex Type Anes PTL Karlene A1 A5 Name Clin 2016 35w 0d M C-S j incis Epidur al Y Livin g 2017 Term 38w 0d 0h 02m 0h 02m 2.88 kg (6 lb 5.6 oz) M CS-LTr anv Spinal N Livin g 8 9 MILLE R,BOY MILLICENT Complications:Other (Comment ),None Delivery Location:[facility] ([facility]) Last Filed Vital Signs Vital Sign Reading Time Taken Comments Blood Pressure 121/88 07/01/2024 3:21 PM APPLICATION PROJECT LEADER Pulse 83 07/01/2024 3:21 PM APPLICATION PROJECT LEADER Temperature 36.9 C (98.5 F) 07/01/2024 3:21 PM APPLICATION PROJECT LEADER Respiratory Rate 18 07/01/2024 3:21 PM APPLICATION PROJECT LEADER Oxygen Saturation 99% 07/01/2024 3:21 PM APPLICATION PROJECT LEADER Inhaled Oxygen Concentration - - Weight 90.9 kg (200 lb 8 oz) 07/01/2024 3:21 PM APPLICATION PROJECT LEADER Height 157.5 cm (5' 2.01 ) 07/01/2024 3:21 PM CS T Body Mass Index 36.66 07/01/2024 3:21 PM APPLICATION PROJECT LEADER Plan of Treatment Health Maintenance Due Date Last Done Comments Cervical Cancer Screening 1989 Hepatitis C Screening 1989 Varicella Vaccines (2 of 2 - 2-dose childhood series) 05/10/1995 02/15/1995 Pneumococcal vaccine <65 (1 of 2 - PCV) 11/04/1995 Covid-19 Vaccine (2 - season) 2024 09/01/2020 Influenza Vaccine (#1) 2024 07/18/2022, 2020 Depression Screening 03/27/2025 03/27/2024, 03/22/2023, 09/28/2022, Additional history exists Regular Well Visit/Exam 18-64 03/27/2025 03/27/2024, 03/22/2023, 06/20/2021, Additional history exists DTaP/Tdap/Td Vaccine (7 - Td or Tdap) 11/01/2027 10/31/2017, 02/15/1995, 05/29/1991, Additional history exists Hepatitis B Screening Completed 05/10/1999, 999 HPV Vaccines Aged Out No longer eligi ble based on patient's age to complete this topic Procedures Procedure Name Priority Date/Time Associated Diagnosis Comments VAGINITIS PANEL Routine 07/01/2024 4:13 PM APPLICATION PROJECT LEADER Acute vaginitis from Last 3 Months Results * (ABNORMAL) Vaginitis panel Vaginal (07/01/2024 4:13 PM APPLICATION PROJECT LEADER) Abbi DNA probe Not Detected Not Detected Comment:Testing performed by : [facility], [address] [place] [address], [place]., [id number] Gardnerella DNA probe Detected(A) Not Detected RENAY BAIG Comment:Testing performed by : [facility], [address] [place] [address]., [id number] Trichomonas DNA probe Not Detected Not Detected RENAY BAIG Comment: Interpretive Data Testing performed by [facility] via [employer]irm VPIII Microbial Identification Test, [...] last revised on 2020. Testing performed by: [facility], [address] [place] [address]., [id number] Vaginal 07/01/2024 4:13 PM APPLICATION PROJECT LEADER 07/02/2024 1:06 PM APPLICATION PROJECT LEADER us [facility] - GENER AL ORDERABLES Final Result RENAY BAIG [id number] Department [place] [address] from Last 3 Months Insurance [facility] [employer] [place] For more information, please contact: [phone] * Full Code (Latest Code Status on File) Date Activated Date Inactivated Comments 01/09/2018 4:20 PM 01/11/2018 6:59 PM * Full Code Date Activated Date Inactivated Comments 01/09/2018 7:54 AM 01/09/2018 4:20 PM Full CPR in case of cardiopulmonary arrest * Full Code Date Activated Date Inactivated Comments 12/05/2017 3:33 AM 12/05/2017 7:02 AM Care Teams Service Specialist Relationship Specialty Start Date End Date Siddhartha Jhaveri MD PCP - General 10/14/17
--- OUTSIDE RECORDS SUMMARY | 2024-07-05 14:55 | XMS_ITS ---
Author Organization [facility] Address [address] [place] [address] Phone Care Team Providers Care Loss Prevention Auditor Name Role Phone RAMEZ CONSTANTINO MD Unavailable [phone] Problems Includes: Active, inactive, and resolved Problems All Visits Onset Date Resolved Date Provider Condition S tatus Alcohol Use 07/08/2017 Unknown RAMEZ CONSTANTINO MD Resolved Last Documented On 07/23/2018 11:26AM ; [facility] Note: was Closed. Exposure To Contagious Viral Disease 07/08/2017 Unknown RAMEZ CONSTANTINO MD Resolved Last Documented On 07/23/2018 11:26AM ; [facility] Note: was Closed. History of Breast Disorders 07/08/2017 Unknown RAMEZ CONSTANTINO MD Resolved Last Documented On 07/23/2018 11:26AM ; [facility] Note: was Closed. History of Depression 07/08/2017 Unknown RAMEZ CONSTANTINO MD Resolved Last Documented On 07/23/2018 11:26AM ; [facility] Note: was Closed. History of Diabetes Mellitus 07/08/2017 Unknown RAMEZ CONSTANTINO MD Resolved Last Documented On 07/23/2018 11:26AM ; [facility] Note: was Closed. History of Essential Hypertension 07/08/2017 Unknown RAMEZ CONSTANTINO MD Resolved Last Documented On 07/23/2018 11:26AM ; [facility] Note: was Closed. History of Thromboembolic Disease 07/08/2017 Unknown RAMEZ CONSTANTINO MD Resolved Last Documented On 07/23/2018 11:26AM ; [facility] Note: was Closed. History of Thyroid Disorders 07/08/2017 Unknown RAMEZ CONSTANTINO MD Resolved Last Documented On 07/23/2018 11:26AM ; [facility] Note: was Closed. Medical History Infections 07/08/2017 Unknown RAMEZ CONSTANTINO MD Resolved Last Documented On 07/23/2018 11:26AM ; [facility] Note: was Closed. Reported Family History of Genetic Disease 07/08/2017 Unknown RAMEZ CONSTANTINO MD Resolved Last Documented On 07/23/2018 11:26AM ; [facility] Note: was Closed. Respiratory Disorders 07/08/2017 Unknown RAMEZ CONSTANTINO MD Resolved Last Documented On 07/23/2018 11:26AM ; [facility] Note: was Closed. Smoking During 07/08/2017 Unknown RAMEZ CONSTANTINO MD Resolved Last Documented On 07/23/2018 11:26AM ; [facility] Note: was Closed. Tobacco Use 07/08/2017 Unknown RAMEZ CONSTANTINO MD Resolved Last Documented On 07/23/2018 11:26AM ; [facility] Note: was Closed. Exposure To Herpes Simplex 07/08/2017 Unknown RAMEZ CONSTANTINO MD Resolved Last Documented On 07/23/2018 11:26AM ; [facility] Note: was Closed. Hypertension Systemic 02/01/2017 SHAILESH DUMONT WHNP-BC Active Last Documented On 7 9:39AM ; [facility] Risk: Tobacco Use 01/24/2016 SHAILESH DUMONT WHNP -BC Active Last Documented On 6 2:51PM ; [facility] Alcohol Use 01/27/2015 Unknown RAMEZ CONSTANTINO MD Resolv ed Last Documented On 09/06/2015 2:11PM ; [facility] Note: was Closed. Smoking During 01/27/2015 Unknown RAMEZ FITZPATRICK MD Resolved Last Documented On 09/06/2015 2:11PM ; [facility] Note: was Closed. Tobacco Use 01/27/2015 Unknown AUDRA GARNER MD Resolve d Last Documented On 09/06/2015 2:11PM ; [facility] Note: was Closed. Exposure To Herpes Simplex 01/27/2015 Unknown AUDRA GARNER MD Resolved Last Documented On 09/06/2015 2:11PM ; [facility] Note: was Closed. Maternal Tobacco Use Complicating Preg / / Puerperium 12/30/2014 Unknown SHAILESH DUMONT WHNP-BC Resolved Last Documented On 6 2:51PM ; [facility] Plan of Treatment Findings Encounter Date Ordered Clinical summary pro vided to patient WELL WOMAN EXAM with SHAILESH DUMONT WHNP-BC 02/25/2020 Last Documented On 0 3:46PM ; [facility] Ordered Clinical summary pro vided to patient MISSED MENSES with SHAILESH DUMONT WHNP-BC 05/31/2017 Last Documented On 8 3:18PM ; [facility] Ordered Clinical summary pro 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 patient 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 SHAILESH DUMONT WHNP-BC 02/01/2017 Last Documented On 7 9:50AM ; [facility] Ordered Clinical summary pro vided to patient 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 SHAILESH DUMONT WHNP-BC 01/24/2016 Last Documented On 6 3:09PM ; [facility] Ordered Clinical summary pro vided to patient RETURN OB EXAM with SHAILESH DUMONT WHNP-BC 06/30/2015 Last Documented On 6 4:14PM ; [facility] Ordered Clinical summary pro vided to patient RETURN OB EXAM with SHAILESH DUMONT WHNP-BC 06/06/2015 Last Documented On 6 9:30AM ; [facility] Ordered Clinical summary pro vided to patient RETURN OB EXAM with SHAILESH DUMONT WHNP-BC 04/27/2015 Last Documented On 5 3:21PM ; [facility] Ordered Clinical summary pro vided to patient RETURN OB EXAM with SHAILESH DUMONT WHNP-BC 03/02/2015 Last Documented On 5 9:18AM ; [facility] Ordered Clinical summary pro vided to patient MISSED MENSES with SHAILESH DUMONT WHNP-BC 12/30/2014 Last Documented On 5 10:58AM ; [facility] Ordered Clinical summary pro vided to patient 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 SHAILESH DUMONT WHNP-BC 02/09/2013 Last Documented On 3 10:03AM ; [facility] Ordered follow-up visit 1 ye ar or as needed 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 SHAILESH DUMONT WHNP-BC 03/30/2010 Last Documented On 0 9:15AM ; [facility] Instructions to patient Instructions for patient : B reast Self Exam discussed Last Documented On 0 3:20PM ; [facility] Lose weight Last Documented On 0 3:20PM ; [facility] Instructions for patient : B reast Self Exam discussed Last Documented On 7 9:33AM ; [facility] Instructions for patient : K eep the area around the vulva dry. Allow the area to have exposure to air. Avoid irritants such as fabric softeners and perfumed soaps.~ Last Documented On 7 9:48AM ; [facility] Lose weight Last Documented On 7 9:33AM ; [facility] Advised d/c scented bath pro ducts Last Documented On 7 9:48AM ; [facility] Instructions for patient : B reast Self Exam discussed Last Documented On 6 2:50PM ; [facility] Lose weight Last Documented On 6 2:50PM ; [facility] Gardasil information given a nd series encouraged Last Documented On 6 2:51PM ; [facility] Safe sex counseling Last Documented On 6 2:50PM ; [facility] Instructions for patient : B reast Self Exam discussed Last Documented On 3 9:38AM ; [facility] Lose weight Last Documented On 3 9:39AM ; [facility] [place] information given a nd series encouraged Last Documented On 3 9:39AM ; [facility] Safe sex counseling Last Documented On 3 9:39AM ; [facility] Instructions for patient : B reast Self Exam discussed Last Documented On 1 9:55AM ; [facility] Lose weight Last Documented On 1 10:24AM ; [facility] Gard[place] information given a nd series encouraged Last Documented On 1 9:56AM ; [facility] Safe sex counseling Last Documented On 1 9:56AM ; [facility] Instructions for patient : B reast Self Exam discussed Last Documented On 0 8:58AM ; [facility] Lose weight Last Documented On 0 9:11AM ; [facility] [place] information given a nd series encouraged Last Documented On 0 9:12AM ; [facility] Safe sex counseling Last Documented On 0 9:11AM ; [facility] Education and Decision Aids were provided during visit for: Patient Education: Daily shima cium and vitamin D Last Documented On 0 3:20PM ; [facility] Patient Education: weight be aring exercise Last Documented On 0 3:20PM ; [facility] Smoking cessation advised Last Documented On 0 3:46PM ; [facility] Smoking cessation advised Last Documented On 8 2:46PM ; [facility] New OB form given to patient SAB precautions reviewed and pnv samples given. Advised H1N1 and seasonal flu vaccine. Already done prior to ! Last Documented On 8 3:16PM ; [facility] Patient Education: Daily shima cium and vitamin D Last Documented On 7 9:33AM ; [facility] Patient Education: weight be aring exercise Last Documented On 7 9:33AM ; [facility] Smoking cessation advised Last Documented On 7 9:33AM ; [facility] Candidiasis Vulvovaginitis I nformation Sheet Given Last Documented On 7 9:48AM ; [facility] Patient Education: Daily shima cium and vitamin D Last Documented On 6 2:50PM ; [facility] Patient Education: weight be aring exercise Last Documented On 6 2:50PM ; [facility] Smoking cessation advised Last Documented On 6 2:51PM ; [facility] control consent review ed and signed Last Documented On 6 2:50PM ; [facility] Smoking cessation advised Last Documented On 5 10:44AM ; [facility] New OB form given to patient SAB precautions reviewed and pnv samples given. Advised H1N1 and seasonal flu vaccine Last Documented On 5 10:39AM ; [facility] Patient Education: Daily shima cium and vitamin D Last Documented On 3 9:38AM ; [facility] Patient Education: weight be aring exercise Last Documented On 3 9:38AM ; [facility] control consent review ed and signed Last Documented On 3 9:39AM ; [facility] Patient Education: Daily shima cium and vitamin D Last Documented On 1 9:55AM ; [facility] Patient Education: weight be aring exercise Last Documented On 1 9:55AM ; [facility] control consent review ed and signed done at previous visit Last Documented On 1 9:56AM ; [facility] Patient Education: Daily shima cium and vitamin D Last Documented On 0 9:11AM ; [facility] Patient Education: weight be aring exercise Last Documented On 0 9:11AM ; [facility] Assessments Includes: Assessments for all patient encounters Findings Encounter Date NORMAL FEMALE EXAM WELL WOMAN EXAM with SHAILESH DUMONT [facility] 02/25/2020 Last Documented On 0 3:46PM ; [facility] Amenorrhea MISSED MENSES with SHAILESH DUMONT NP-BC 05/31/2017 Last Documented On 8 3:18PM ; [facility] Abbi albicans vulvovaginitis 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 MARIPOSA DUMONT NP-BC 02/01/2017 Last Documented On 7 9:50AM ; [facility] NORMAL FEMALE EXAM 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 SHAILESH Marr P-BC 02/01/2017 Last Documented On 7 9:50AM ; [facility] NORMAL FEMALE EXAM 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 SHAILESH Marr HNP-BC 01/24/2016 Last Documented On 6 3:09PM ; [facility] Normal checkup (6 - 42 wk) * PHONE CALL with AUDRA GARNER MD 07/19/2015 Last Documented On 6 4:32PM ; [facility] Normal checkup (6 - 42 wk) RETURN OB EX AM with AUDRA GARNER MD 07/14/2015 Last Documented On 6 8:44AM ; [facility] Normal checkup (6 - 42 wk) RETU RN OB EXAM with SHAILESH PAPPAS 06/30/2015 Last Documented On 6 4:14PM ; [facility] Normal checkup (6 - 42 wk) * PHONE CALL with AUDRA GARNER MD 06/27/2015 Last Documented On 6 12:52PM ; [facility] Normal checkup (6 - 42 wk) RETURN OB EX AM with AUDRA GARNER MD 06/14/2015 Last Documented On 6 12:55PM ; [facility] Normal checkup (6 - 42 wk) RETU RN OB EXAM with SHAILESH PAPPAS 06/06/2015 Last Documented On 6 9:30AM ; [facility] Normal checkup (6 - 42 wk) RETURN OB EX AM with AUDRA GARNER MD 05/24/2015 Last Documented On 5 8:48AM ; [facility] Normal checkup (6 - 42 wk) * PH ONE CALL with SHAILESH PAPPAS 05/11/2015 Last Documented On 5 8:43AM ; [facility] Normal checkup (6 - 42 wk) * PHONE CALL with AUDRA GARNER MD 05/10/2015 Last Documented On 5 10:15AM ; [facility] Normal checkup (6 - 42 wk) RETU RN OB EXAM with SHAILESH PAPPAS 04/27/2015 Last Documented On 5 3:21PM ; [facility] Normal checkup (6 - 42 wk) * PHONE CALL with AUDRA GARNER MD 04/01/2015 Last Documented On 5 10:37AM ; [facility] Normal checkup (6 - 42 wk) RETURN OB EX AM with AUDRA GARNER MD 03/29/2015 Last Documented On 5 9:49AM ; [facility] Normal checkup (6 - 42 wk) * PHONE CALL with AUDRA GARNER MD 03/11/2015 Last Documented On 5 1:40PM ; [facility] Normal checkup (6 - 42 wk) RETU RN OB EXAM with SHAILESH DUMONT [facility]- 03/02/2015 Last Documented On 5 9:18AM ; [facility] Normal checkup (6 - 42 wk) NEW OB EXAM with AUDRA GARNER MD 01/27/2015 Last Documented On 5 10:08AM ; [facility] Amenorrhea 9 6/7 weeks by LM P with EDC 07/30/2015 MISSED MENSES with SHAILESH DUMONT [facility] 12/30/2014 Last Documented On 5 10:58AM ; [facility] NORMAL FEMALE EXAM 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 SHAILESH Marr [facility] 02/09/2013 Last Documented On 3 10:03AM ; [facility] NORMAL FEMALE EXAM 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 SHAILESH Marr [facility]-BC 04/18/2011 Last Documented On 1 10:25AM ; [facility] Normal routine history and physical 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 EXAM wit h SHAILESH DUMONT [facility]- 03/30/2010 Last Documented On 0 9:15AM ; [facility] Instructions Includes: Instructions for all patient encounters Instructions to patient Instructions for patient : B reast Self Exam discussed Last Documented On 0 3:20PM ; [facility] Lose weight Last Documented On 0 3:20PM ; [facility] Instructions for patient : B reast Self Exam discussed Last Documented On 7 9:33AM ; [facility] Instructions for patient : K eep the area around the vulva dry. Allow the area to have exposure to air. Avoid irritants such as fabric softeners and perfumed soaps.~ Last Documented On 7 9:48AM ; [facility] Lose weight Last Documented On 7 9:33AM ; [facility] Advised d/c scented bath pro ducts Last Documented On 7 9:48AM ; [facility] Instructions for patient : B reast Self Exam discussed Last Documented On 6 2:50PM ; [facility] Lose weight Last Documented On 6 2:50PM ; [facility] [employer] information given a nd series encouraged Last Documented On 6 2:51PM ; [facility] Safe sex counseling Last Documented On 6 2:50PM ; [facility] Instructions for patient : B reast Self Exam discussed Last Documented On 3 9:38AM ; [facility] Lose weight Last Documented On 3 9:39AM ; [facility] [employer] information given a nd series encouraged Last Documented On 3 9:39AM ; [facility] Safe sex counseling Last Documented On 3 9:39AM ; [facility] Instructions for patient : B reast Self Exam discussed Last Documented On 1 9:55AM ; [facility] Lose weight Last Documented On 1 10:24AM ; [facility] [place] information given a nd series encouraged Last Documented On 1 9:56AM ; [facility] Safe sex counseling Last Documented On 1 9:56AM ; [facility] Instructions for patient : B reast Self Exam discussed Last Documented On 0 8:58AM ; [facility] Lose weight Last Documented On 0 9:11AM ; [facility] [place] information given a nd series encouraged Last Documented On 0 9:12AM ; [facility] Safe sex counseling Last Documented On 0 9:11AM ; [facility] Education and Decision Aids were provided during visit for: Patient Education: Daily shima cium and vitamin D Last Documented On 0 3:20PM ; [facility] Patient Education: weight be aring exercise Last Documented On 0 3:20PM ; [facility] Smoking cessation advised Last Documented On 0 3:46PM ; [facility] Smoking cessation advised Last Documented On 8 2:46PM ; [facility] New OB form given to patient SAB precautions reviewed and pnv samples given. Advised H1N1 and seasonal flu vaccine. Already done prior to ! Last Documented On 8 3:16PM ; [facility] Patient Education: Daily shima cium and vitamin D Last Documented On 7 9:33AM ; [facility] Patient Education: weight be aring exercise Last Documented On 7 9:33AM ; [facility] Smoking cessation advised Last Documented On 7 9:33AM ; [facility] Candidiasis Vulvovaginitis I nformation Sheet Given Last Documented On 7 9:48AM ; [facility] Patient Education: Daily shima cium and vitamin D Last Documented On 6 2:50PM ; [facility] Patient Education: weight be aring exercise Last Documented On 6 2:50PM ; [facility] Smoking cessation advised Last Documented On 6 2:51PM ; [facility] control consent review ed and signed Last Documented On 6 2:50PM ; [facility] Smoking cessation advised Last Documented On 5 10:44AM ; [facility] New OB form given to patient SAB precautions reviewed and pnv samples given. Advised H1N1 and seasonal flu vaccine Last Documented On 5 10:39AM ; [facility] Patient Education: Daily shima cium and vitamin D Last Documented On 3 9:38AM ; [facility] Patient Education: weight be aring exercise Last Documented On 3 9:38AM ; [facility] control consent review ed and signed Last Documented On 3 9:39AM ; [facility] Patient Education: Daily shima cium and vitamin D Last Documented On 1 9:55AM ; [facility] Patient Education: weight be aring exercise Last Documented On 1 9:55AM ; [facility] control consent review ed and signed done at previous visit Last Documented On 1 9:56AM ; [facility] Patient Education: Daily shima cium and vitamin D Last Documented On 0 9:11AM ; [facility] Patient Education: weight be aring exercise Last Documented On 0 9:11AM ; [facility] Medical Equipment - Implanted Devices Includes: Current and historical Devices No Medical Equipment Recorded Medications Includes: Current and historical Medications Current Medications (continue as prescribed) Escitalopram Oxalate 5MG Oral Tablet 07/08/2017 Prov ider: Diagnosis: Last Documented On 8 4:11PM By GRACIELA OLEA ; [facility] Albuterol Sulfate (2.5 MG/3ML) 0.083% Nebulizati on solution 08/01/2015 Provider: Diagnosis: Last Documented On 08/01/2015 2:59PM By MARQUES HDEZ CMA ; [facility] Past Medications on file Procardia XL 30MG Oral Table t Extended Release 24 Hour 08/29/2017 - 11/27/2017 Provider: SHAILESH MIRANDA [facility] Diagnosis: One tablet daily Last Documented On 8 3:53PM By [facility] ; [facility] Ampicillin 500MG Oral Capsule 07/12/2017 - 02/25/2020 Provider: RAMEZ CONSTANTINO MD Diagnosis: Sig: one capsule 4 x a day till gone Last Documented On 0 3:28PM By MARIANNA MOELLER TEACHER AIDE CLERICAL ; [facility] [facility] Terazol 7 0.4% Vaginal Cream 06/24/2017 - 07/24/2017 P rovider: SHAILESH DUMONT [facility] Diagnosis: as directed - insert one jasmin licator full pv q hs x 7 nocs Last Documented On 8 9:51AM By [facility] Procardia XL 30MG Oral Table t Extended Release 24 Hour 05/31/2017 - 08/29/2017 Provider: SHAILESH MIRANDA [facility] Diagnosis: One tablet daily Last Documented On 8 3:51PM By SHAILESH DUMONT [place] ; [facility] Losartan Potassium 100MG Oral Tablet 05/31/2017 - 09/2017 Provider: Diagnosis: Last Documented On 8 3:16PM [facility] Escitalopram Oxalate 10MG Oral Tablet 05/31/2017 - 04/2018 Provider: Diagnosis: Last Documented On 8 4:11PM By GRACIELA OLEA ; [facility] Adult Aspirin EC Low Strengt h 81MG Oral Tablet Delayed Release 05/31/2017 - 02/25/2020 Provider: Diagnosis: Last Documented On 0 3:28PM By MARIANNA MOELLER LPN ; [facility] Diflucan 150MG Oral Tablet 02/01/2017 - 05/31/2017 Pro vider: SHAILESH DUOMNT [facility] Diagnosis: as directed - one po x 1 dos e and rpt. in 3 days as needed Last Documented On 8 2:45PM By [facility] ; [facility] Radha 0.35MG Oral Tablet 02/01/2017 - 05/31/2017 Provi alba: SHAILESH DUMONT NP-BC Diagnosis: One tablet daily Last Documented On 8 2:45PM By [facility] ; [facility] Lo Loestrin Fe 1 MG-10 MCG / 10 MCG Tablet 01/24/2016 - 02/01/2017 Provider: SHAILESHSHARMAINE NASSAR EMERGENCY SERVICES DIRECTOR-BC Diagnosis: One tablet daily Last Documented On 7 9:48AM By [facility] Angie 0.35 MG Tablet 12/27/2015 - 01/24/2016 Provider : AUDRA GARNER MD Diagnosis: One tablet daily Last Documented On 12/27/2015 3:23PM By AUDRA GARNER MD ; [facility] Angie 0.35 MG Tablet 09/08/2015 - 12/27/2015 Provider : AUDRA GARNER MD Diagnosis: One tablet daily Last Documented On 12/27/2015 3:22PM By AUDRA GARNER MD ; [facility] NIFEdipine ER 30 MG Tablet, extended-release 24 hour 08/09/2015 - 09/23/2015 Provider: AUDRA MOISE MD Diagnosis: ii po daily at same time Last Documented On 08/09/2015 3:19PM By AUDRA GARNER MD ; [facility] Angie 0.35 MG Tablet 08/09/2015 - 09/08/2015 Provider : AUDRA GARNER MD Diagnosis: One tablet daily Last Documented On 09/08/2015 11:35AM By AUDRA GARNER MD ; [facility] NIFEdipine ER Osmotic Releas e 90 MG Tablet, extended-release 24 hour 08/09/2015 - 08/23/2015 Provider: Diagnosis: Last Documented On 6 10:39AM By RYAN OLEA ; [facility] Cephalexin 500 MG Tablet 08/05/2015 - 08/15/2015 Provi alba: AUDRA GARNER MD Diagnosis: One tablet four times a day Last Documented On 08/05/2015 11:27AM By AUDRA GARNER MD ; [facility] Potassium Chloride 20 MEQ/100ML Solution 08/01/2015 - 08/23/2015 Provider: Diagnosis: Last Documented On 6 10:41AM By RYAN OLEA ; [facility] Docusate Sodium 100 MG Capsule, conventional 6 - 08/23/2015 Provider: Diagnosis: Last Documented On 6 10:41AM By RYAN OLEA ; [facility] Oxycodone-Acetaminophen 5-325 MG Tablet 08/01/2015 - 0 08/23/2015 Provider: Diagnosis: Last Documented On 6 10:40AM By RYAN OLEA ; [facility] Hydrocodone-Acetaminophen 5- 325 MG Tablet 08/01/2015 - 08/04/2015 Provider: AUDRA GARNER MD Diagnosis: 1-2 every 4-6 hours as needed Last Documented On 08/01/2015 3:00PM By AUDRA GARNER MD ; [facility] Ibuprofen 600 MG Tablet 07/20/2015 - 05/31/2017 Provid er: Diagnosis: Last Documented On 8 2:45PM By [facility] Chlorthalidone 25 MG Tablet 07/20/2015 - 08/09/2015 Pr ovider: Diagnosis: Last Documented On 08/09/2015 3:05PM By MARQUES HDEZ CMA ; [facility] NIFEdipine ER 60 MG Tablet, extended-release 24 hour 07/20/2015 - 08/09/2015 Provider: Diagnosis: Last Documented On 08/09/2015 3:05PM By MARQUES HDEZ CMA ; [facility] Breast Pump Miscellaneous 07/19/2015 - 07/18/2016 Provider: AUDRA GARNER MD Diagnosis: Encounter for ca re and examination of lactating mother as directed Last Documented On 07/19/2015 4:31PM By AUDRA GARNER MD ; [facility] ValACYclovir HCl 1 GM Tablet 07/14/2015 - 09/12/2015 P rovider: AUDRA GARNER MD Diagnosis: One tablet daily Last Documented On 07/14/2015 8:43AM By AUDRA GARNER MD ; [facility] Macrodantin 100 MG Capsule, conventional 05/10/2015 - 08/01/2015 Provider: Diagnosis: telephoned in Last Documented On 08/01/2015 2:43PM By RYAN OLEA ; [facility] 19 Tablet 03/29/2015 - 08/01/2015 Provider: AUDRA GARNER MD Diagnosis: One tablet daily Last Documented On 08/01/2015 2:43PM By RYAN OLEA ; [facility] Triveen-Duo DHA 29-1-200 & 4 00 MG Miscellaneous 01/27/2015 - 10/24/2015 Provider: AUDRA GARNER MD Diagnosis: One tablet daily Last Documented On 01/27/2015 10:08AM By AUDRA GARNER MD ; [facility] CVS 28-0.8 MG Tablet 12/30/2014 - 08/23/2015 Provider: Diagnosis: Last Documented On 6 10:40AM By RYAN OLEA ; [facility] Macrobid 100 MG Capsule 12/15/2014 - 12/30/2014 Provid er: Diagnosis: po bid 7 days telephoned in Last Documented On 5 10:47AM By TATIANA JARRETT Callie ; [facility] Bactrim DS 800-160 MG OR TABS 05/16/2011 - 05/19/2011 Provider: SHAILESH PAPPAS Diagnosis: Last Documented On 1 11:57AM By SHAILESH PAPPAS ; [facility] traMADol HCl ER 100 MG OR TB24 04/18/2011 - 12/30/2014 Provider: Diagnosis: Last Documented On 5 10:40AM By SHAILESH PAPPAS ; [facility] THEODORA 3-0.02 MG OR TABS 04/18/2011 - 04/12/2012 Provider : SHAILESH PAPPAS Diagnosis: Last Documented On 1 10:25AM By SHAILESH PAPPAS ; [facility] THEODORA 3-0.02 MG OR TABS 01/25/2011 - 04/18/2011 Provider : SHAILESH PAPPAS Diagnosis: Last Documented On 1 10:25AM By SHAILESH PAPPAS ; [facility] THEOD[place]A 3-0.02 MG OR TABS 03/30/2010 - 01/25/2011 Provider : SHAILESH PAPPAS Diagnosis: Last Documented On 1 3:58PM By SHAILESH PAPPAS ; [facility] THE[place]A 3-0.02 MG OR TABS 01/25/2010 - 03/30/2010 Provider : SHAILESH PAPPAS Diagnosis: Last Documented On 0 9:12AM By SHAILESH PAPPAS ; [facility] Bactrim DS 800-160 MG OR TABS 08/17/2009 - 08/20/2009 Provider: SHAILESH PAPPAS Diagnosis: Last Documented On 0 3:26PM By SHAILESH PAPPAS ; [facility] Bactrim DS 800-160 MG OR TABS 05/02/2009 - 05/05/2009 Provider: Diagnosis: Last Documented On 06/14/2009 12:23PM By CARMENCITA AVERY ; [facility] THE[place]A 3-0.02 MG OR TABS 02/09/2009 - 02/04/2010 Provider : Diagnosis: Last Documented On 06/14/2009 12:24PM By CARMENCITA AVERY ; [facility] Medications Administered Includes: Administered Medications in patient's chart Medications Administered Diagnosis Date Pro vider Fluzone Preservative Free 0.5 ML IM SIMON Encounter for immunization 04/27/2015 SHAILESH PAPPAS Last Documented On 5 3:12PM By TATIANA OLEA ; [facility] Results Includes: Results from 07/05/2023 through 07/05/2024 No Results Recorded For Specified Dates History of Present Illness History of Present Illness not supported for this document type No History of Present Illness Recorded Social History Description Last Updated Sexually active with 1 partners in the l ast year 02/25/2020 Last Documented On 0 3:46PM ; [facility] Smoking Status Unknown Procedures and Surgical History Surgical History Last Updated History of tubal ligation 02/25/2020 Last Documented On 0 3:46PM ; [facility] History of cholecystectomy 02/25/2020 Last Documented On 0 3:46PM ; [facility] History of surgery gallbladder removal 1 Last Documented On 0 3:46PM ; [facility] Surgical / procedural history c/s 2019 Last Documented On 0 3:46PM ; [facility] Medical History Includes: Medical History in patient's chart Description Last Updated Para 2 02/25/2020 Last Documented On 0 3:46PM ; [facility] Sexually active 02/25/2020 Last Documented On 0 3:46PM ; [facility] LMP: 02/18/2020 02/25/2020 Last Documented On 0 3:46PM ; [facility] 2 02/25/2020 Last Documented On 0 3:46PM ; [facility] History of asthma 02/25/2020 Last Documented On 0 3:46PM ; [facility] History of benign essential hypertension 02/25/2020 Last Documented On 0 3:46PM ; [facility] History of breast disorders FOB [place] cancer 02/25/2020 Last Documented On 0 3:46PM ; [facility] History of depression MOB an d FOB and both families: pt previously on meds at 22 y old x 2 yrs: unsure of med; no meds in last preg; no post depression; 02/25/2020 Last Documented On 0 3:46PM ; [facility] Family History Includes: Family History in patient's chart Description Last Updated Spouse name: Greta 05/31/2017 Last Documented On 8 3:18PM ; [facility] Review of Systems Review of Systems not supported for this document type No Review of Systems Recorded Mental Status No Mental Status Recorded Functional Status No Functional Status Recorded Physical Exam Physical Exam not supported for this document type No Physical Exam Recorded Immunizations Includes: Immunizations in patient's chart Vaccine Dose # Date Site Reaction(s) Status Source Influenza (Quadrivalent)36 mo.& older PF 0.5ml (SD) 1 04/27/2015 Left Arm Complete (Administered) [facility] Last Documented On 5 3:12PM ; [facility] Allergies Includes: Active, inactive, and resolved Allergies No Known Allergies Insurance Includes: Active Insurance Policies Plan Name Member ID Group # Subscriber Relationship Effect beatris Dates 1 - [facility] [id number] AJAY QUINTERO Se lf Clinical Notes Includes: Signed Clinical Notes starting from 06/15/2022 No Clinical Notes Recorded
--- OUTSIDE RECORDS SUMMARY | 2024-07-05 14:55 | XMS_ITS ---
Care Plan - [facility] Created on: July 05, 2024 AJAY QUINTERO : 1990 Sex: Female Author Organization [facility] Address [address] [place] [address] Phone Care Team Providers Care Inspector Timers Name Role Phone DOUGIE HYMAN, RAMEZ C Unavailable [phone]
[2024-07-05 14:56] VITALS: BP 121/89; PULSE 103; RESP 18; TEMP 36.8; O2SAT 98
--- OUTSIDE RECORDS SUMMARY | 2024-07-05 14:56 | XMS_ITS | Clinical Summary ---
Author Organization [facility] Address [address] [place] [address] Phone Care Team Providers Care Sawmill Hand Name Role Phone RAMEZ CONSTANTINO MD Unavailable [phone] Reason for Visit and Chief Complaint * PHONE CALL Problems Includes: Problems addressed during this encounter and other active Problems All Visits Onset Date Resolved Date Provider Condition S tatus Hypertension Systemic 02/01/2017 SHAILESH DUMONT NP-BC Active Last Documented On 7 9:39AM ; [facility] Risk: Tobacco Use 01/24/2016 SHAILESH DUMONT NP -BC Active Last Documented On 6 2:51PM ; [facility] Plan of Treatment No Plan of Treatment Recorded Assessments Includes: Assessments from this encounter No Assessments Recorded Medical Equipment - Implanted Devices Includes: Current Devices No Medical Equipment Recorded Medications Includes: Medications discussed during this encounter and other current Medications New / Renewed during this visit RAMEZ CONSTANTINO MD on 07/12/2017 Ampicillin 500MG Oral Capsule Provider: RAMEZ CONSTANTINO MD 10 day supply: 40 capsule, 0 refills Diagnosis: Sig: one capsule 4 x a day till gone Pharmacy: [facility]/pharmacy #[id number], [address] - Last Documented On 0 3:28PM By MARIANNA MOELLER LPN ; [facility] Current Medications (continue as prescribed) Escitalopram Oxalate 5MG Oral Tablet 07/08/2017 Prov ider: Diagnosis: Last Documented On 8 4:11PM By GRACIELA OLEA ; [facility] Albuterol Sulfate (2.5 MG/3ML) 0.083% Nebulizati on solution 08/01/2015 Provider: Diagnosis: Last Documented On 08/01/2015 2:59PM By MARQUES HDEZ ASSISTANT PROGRAM DIRECTOR ; [facility] Medications Administered Includes: Administered Medications from this encounter No Administered Medications Recorded Results Includes: Results discussed during this encounter No Results Recorded For Specified Dates History of Present Illness Includes: History of Present Illness from this encounter No History of Present Illness Recorded Social History No Social History Recorded - Smoking Status Unknown Medical History Includes: Medical History addressed during this encounter No Medical History Recorded Family History Includes: Family History addressed during this encounter No Family History Recorded Review of Systems Includes: Review of Systems from this encounter No Review of Systems Recorded Mental Status Includes: Mental Status from this encounter No Mental Status Recorded Functional Status Includes: Functional Status from this encounter No Functional Status Recorded Physical Exam Includes: Physical Exam from this encounter No Physical Exam Recorded Allergies Includes: Active Allergies No Known Allergies Encounters Encounter Provider Location Date Check-In Time Check-Out Time Diagnosis * PHONE CALL RAMEZ CONSTANTINO MD 07/12/2017 4:59PM 11:59PM Insurance Includes: Active Insurance Policies Plan Name Member ID Group # Subscriber Relationship Effect beatris Dates 1 - [facility] [id number] AJAY QUINTERO Se lf Clinical Notes Includes: Clinical Notes from this encounter No Clinical Notes Recorded
--- OUTSIDE RECORDS SUMMARY | 2024-07-05 14:56 | XMS_ITS | Clinical Summary ---
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 Problems Includes: Problems addressed during this encounter and other active Problems All Visits Onset Date Resolved Date Provider Condition S tatus Hypertension Systemic 02/01/2017 SHAILESH DUMONT NP-BC Active Last Documented On 7 9:39AM ; [facility] Risk: Tobacco Use 01/24/2016 SHAILESH DUMONT NP -BC Active Last Documented On 6 2:51PM ; [facility] Plan of Treatment No Plan of Treatment Recorded Assessments Includes: Assessments from this encounter No Assessments Recorded Medical Equipment - Implanted Devices Includes: Current Devices No Medical Equipment Recorded Medications Includes: Medications discussed during this encounter and other current Medications Current Medications (continue as prescribed) Escitalopram Oxalate 5MG Oral Tablet 07/08/2017 Prov ider: Diagnosis: Last Documented On 8 4:11PM By GRACIELA OLEA ; [facility] Albuterol Sulfate (2.5 MG/3ML) 0.083% Nebulizati on solution 08/01/2015 Provider: Diagnosis: Last Documented On 08/01/2015 2:59PM By MARQUES HDEZ CMA ; [facility] Medications Administered Includes: Administered Medications from this [...] Allergies Includes: Active Allergies No Known Allergies Insurance Includes: Active Insurance Policies Plan Name Member ID Group # Subscriber Relationship Effect beatris Dates 1 - [facility] [id number] AJAY QUINTERO Se lf Clinical Notes Includes: Clinical Notes from this encounter No Clinical Notes Recorded
--- OUTSIDE RECORDS SUMMARY | 2024-07-05 14:56 | XMS_ITS | Clinical Summary ---
Author Organization [facility] Address [address] [place] [address] Phone Care Team Providers Care Attending Radiologist Name Role Phone RAMEZ CONSTANTINO MD Unavailable [phone] Reason for Visit and Chief Complaint NEW OB EXAM Problems Includes: Problems addressed during this encounter and other active Problems Current Visit Onset Date Resolved Date Provider [place] Status Alcohol Use 07/08/2017 Unknown RAMEZ CONSTANTINO MD Resolved Last Documented On 07/23/2018 11:26AM ; [facility] Note: was Closed. Exposure To Contagious Viral Disease 07/08/2017 Unknown RAMEZ CONSTANTINO MD Resolved Last Documented On 07/23/2018 11:26AM ; [facility] Note: was Closed. History of Breast Disorders 07/08/2017 Unknown RAMEZ CONSTANTINO MD Resolved Last Documented On 07/23/2018 11:26AM ; [facility] Note: was Closed. History of Depression 07/08/2017 Unknown RAMEZ CONSTANTINO MD Resolved Last Documented On 07/23/2018 11:26AM ; [facility] Note: was Closed. History of Diabetes Mellitus 07/08/2017 Unknown RAMEZ CONSTANTINO MD Resolved Last Documented On 07/23/2018 11:26AM ; [facility] Note: was Closed. History of Essential Hypertension 07/08/2017 Unknown RAMEZ CONSTANTINO MD Resolved Last Documented On 07/23/2018 11:26AM ; [facility] Note: was Closed. History of Thromboembolic Disease 07/08/2017 Unknown RAMEZ CONSTANTINO MD Resolved Last Documented On 07/23/2018 11:26AM ; [facility] Note: was Closed. History of Thyroid Disorders 07/08/2017 Unknown RAMEZ CONSTANTINO MD Resolved Last Documented On 07/23/2018 11:26AM ; [facility] Note: was Closed. Medical History Infections 07/08/2017 Unknown RAMEZ CONSTANTINO MD Resolved Last Documented On 07/23/2018 11:26AM ; [facility] Note: was Closed. Reported Family History of Genetic Disease 07/08/2017 Unknown RAMEZ CONSTANTINO MD Resolved Last Documented On 07/23/2018 11:26AM ; [facility] Note: was Closed. Respiratory Disorders 07/08/2017 Unknown RAMEZ CONSTANTINO MD Resolved Last Documented On 07/23/2018 11:26AM ; [facility] Note: was Closed. Smoking During 07/08/2017 Unknown RAMEZ CONSTANTINO MD Resolved Last Documented On 07/23/2018 11:26AM ; [facility] Note: was Closed. Tobacco Use 07/08/2017 Unknown RAMEZ CONSTANTINO MD Resolved Last Documented On 07/23/2018 11:26AM ; [facility] Note: was Closed. Exposure To Herpes Simplex 07/08/2017 Unknown RAEMZ CONSTANTINO MD Resolved Last Documented On 07/23/2018 11:26AM ; [facility] Note: was Closed. Alcohol Use 01/27/2015 Unknown RAMEZ CONSTANTINO MD Resolved Last Documented On 09/06/2015 2:11PM ; [facility] Note: was Closed. Smoking During 01/27/2015 Unknown RAMEZ CONSTANTINO MD Resolved Last Documented On 09/06/2015 2:11PM ; [facility] Note: was Closed. Tobacco Use 01/27/2015 Unknown AUDRA GARNER MD Resolve d Last Documented On 09/06/2015 2:11PM ; [facility] Note: was Closed. Exposure To Herpes Simplex 01/27/2015 Unknown AUDRA GARNER MD Resolved Last Documented On 09/06/2015 2:11PM ; [facility] Note: was Closed. Past Visits Onset Date Resolved Date Provider Condition Status Hypertension Systemic 02/01/2017 SHAILESH DUMONT WHNP-BC Active Last Documented On 7 9:39AM ; [facility] Risk: Tobacco Use 01/24/2016 SHAILESH DUMONT [facility]NP -BC Active Last Documented On 6 2:51PM ; [facility] Plan of Treatment No Plan of Treatment Recorded Assessments Includes: Assessments from this encounter No Assessments Recorded Medical Equipment - Implanted Devices Includes: Current Devices No Medical Equipment Recorded Medications Includes: Medications discussed during this encounter and other current Medications Discontinued / Stopped on this date on 05/31/2017 Escitalopram Oxalate 10MG Oral Tablet Pro vider: Diagnosis: Last Documented On 8 4:11PM By GRACIELA OLEA ; [facility] Current Medications (continue as prescribed) Escitalopram Oxalate 5MG Oral Tablet 07/08/2017 Prov ider: Diagnosis: Last Documented On 8 4:11PM By GRACIELA OLEA ; [facility] Albuterol Sulfate (2.5 MG/3ML) 0.083% Nebulizati on solution 08/01/2015 Provider: Diagnosis: Last Documented On 08/01/2015 2:59PM By MARQUES HDEZ CMA ; [facility] Medications Administered Includes: Administered Medications from this encounter No Administered Medications Recorded Vital Signs Includes: Vital Signs from this encounter Vital Name 07/08/2017 03:57P Blood Pressure Sitting (mmHg) 112/70 Height (in) 64 Weight (lb) 240.125 Body Mass Index (kg/m2) 41.2 Body Surface Area (m2) 2.1 Last Documented: On 07/08/2017 4:24PM ; [facility] Results Includes: Results discussed during this encounter No Results Recorded For Specified Dates History of Present Illness Includes: History of Present Illness from this encounter No History of Present Illness Recorded Social History Description Last Updated Alcohol use 07/08/2017 Last Documented On 8 5:29PM ; [facility] Tobacco use 07/08/2017 Last Documented On 8 5:29PM ; [facility] Smoking Status Unknown Procedures and Surgical History Surgical History Last Updated History of surgery 07/08/2017 Last Documented On 8 5:29PM ; [facility] Medical History Includes: Medical History addressed during this encounter Description Last Updated History of breast disorders 07/08/2017 Last Documented On 8 5:29PM ; [facility] History of depression 07/08/2017 Last Documented On 8 5:29PM ; [facility] Previous hospitalizations 07/08/2017 Last Documented On 8 5:29PM ; [facility] Family History Includes: Family History addressed during [...] Location Date Check-In Time Check-Out Time Diagnosis NEW OB EXAM RAMEZ CONSTANTINO MD [facility] INF[employer] RO[employer] TEACHER 8 3:41PM 5:18PM Insurance Includes: Active Insurance Policies Plan Name Member ID Group # Subscriber Relationship Effect beatris Dates 1 - [facility] [id number] AJAY QUINTERO Se lf Clinical Notes Includes: Clinical Notes from this encounter No Clinical Notes Recorded
--- NOTE | 2024-07-05 15:10 | ED.GENADULT ---
HPI - General Adult General Chief complaint: Urogenital-Female Stated complaint: urogenital female Time Seen by Provider: 07/05/24 15:01 History of Present Illness HPI narrative: Millicent is a 33F that presented to the ED with dysuria and fevers. She started treatment with metronidazole days ago but later had burning. She called a teledoc that placed her on macrobid. Now she is having more dysuria and has had some fevers. No hematuria, or severe flank pain. Related Data Home Medications ?Medication ?Instructions ?Recorded ?Confirmed ?Last Taken ?Type amoxicillin 500 mg tablet mg 07/05/24 Unknown History bupropion HCl 300 mg 24 hr tablet, mg PO 07/05/24 Unknown History extended release buspirone 10 mg tablet mg 07/05/24 Unknown History metformin 500 mg tablet,extended mg PO 07/05/24 Unknown History release 24 hr metronidazole 500 mg tablet mg 07/05/24 Unknown History nitrofurantoin 07/05/24 Unknown History monohydrate/macrocrystals 100 mg capsule omeprazole 20 mg capsule,delayed mg 07/05/24 Unknown History release topiramate 50 mg tablet mg 07/05/24 Unknown History Allergies Allergy/AdvReac Type Severity Reaction Status Date / Time No Known Allergies Allergy Verified 07/05/24 15:14 Review of Systems Review of Systems: All systems reviewed & are unremarkable except as noted in HPI and below Exam Const: General: cooperative, healthy appearing, comfortable, no acute distress, well developed, alert, awake and Physically active Orientation/consciousness: oriented to person, oriented to place and oriented to time HENMT: Head: normal to inspection, normocephalic and atraumatic Ears: hearing grossly normal bilaterally and external ears normal Face/Nose/Sinus: Normal external nose present Eyes: General: appearance normal, both eyes and all related structures Periorbital: periorbital findings normal Sclera: sclerae normal Pupils: Equal, round and reactive pupils present Neck: Neck: normal visual inspection Chest: Chest palpation & inspection: normal inspection of the chest Resp: Effort & Inspection: normal respiratory effort, able to speak in complete sentences and no respiratory distress Cardio: Jugular venous distension: no JVD GI: Inspection: normal to inspection GI Palp: Yes Soft to palpation Auscultation: normal bowel sounds Skin: General skin exam: normal color and no rashes or lesions noted Neuro: General: oriented to person, oriented to place and oriented to time Cranial nerves: Yes Equal, round and reactive pupils present Extrem: General: normal to inspection Course Course Emergency Course: Concerning for pyelonephritis with fevers and failure to respond to macrobid. Start BActrim. Continue metronidazole Vital Signs Vital signs: Vital Signs Temperature 98.2 F 07/05/24 14:56 Pulse Rate 103 H 07/05/24 14:56 Respiratory Rate 18 07/05/24 14:56 Blood Pressure 121/89 07/05/24 14:56 Pulse Oximetry 98 07/05/24 14:56 Oxygen Delivery Room Air 07/05/24 14:56 Temperature 99 F 07/05/24 15:40 Pulse Rate 97 07/05/24 15:40 Respiratory Rate 18 07/05/24 15:40 Blood Pressure 127/88 07/05/24 15:40 Pulse Oximetry 100 07/05/24 15:40 Oxygen Delivery Room Air 07/05/24 15:40 Medical Decision Making Vital Signs Vital Signs: Vital Signs Temperature 98.2 F 07/05/24 14:56 Pulse Rate 103 H 07/05/24 14:56 Respiratory Rate 18 07/05/24 14:56 Blood Pressure 121/89 07/05/24 14:56 Pulse Oximetry 98 07/05/24 14:56 Oxygen Delivery Room Air 07/05/24 14:56 Temperature 99 F 07/05/24 15:40 Pulse Rate 97 07/05/24 15:40 Respiratory Rate 18 07/05/24 15:40 Blood Pressure 127/88 07/05/24 15:40 Pulse Oximetry 100 07/05/24 15:40 Oxygen Delivery Room Air 07/05/24 15:40 Lab Data Labs: Lab Results 07/05/24 Range/Units 15:09 Urine Color Yellow (Yellow) Urine Appearance Clear (Clear) Urine pH 6.0 (5.0-8.0) Ur Specific [place] 1.020 (1.010-1.020) Urine Protein Negative (Negative) Urine Glucose (UA) Negative (Negative) Urine Ketones Negative (Negative) Ur Blood (Man) Negative (Negative) Urine Nitrate Negative (Negative) Urine Bilirubin Negative (Negative) Urine Urobilinogen 0.2 (0.2-1.0) mg/dL Leukocyte Esterase Rfl Trace H (Negative) MAIRA/UL Urine RBC 0-2 (0-2) /hpf Urine WBC 0-3 (0-3) /hpf Ur Squamous Epith Cells Moderate H (Few) /hpf Amorphous Sediment Few H (None) Discharge Plan Discharge Clinical Impression: Urinary tract infection Patient Disposition: Home, Self-Care Condition: Stable Instructions: Antibiotic Form Patient Language: Italian Prescriptions: New sulfamethoxazole-trimethoprim [Bactrim DS] 800-160 mg tablet 1 tablet PO Q12H Qty: 10 0RF No Action metronidazole 500 mg tablet amoxicillin 500 mg tablet buspirone 10 mg tablet omeprazole 20 mg capsule,delayed release(DR/EC) metformin 500 mg tablet extended release 24 hr PO bupropion HCl 300 mg tablet extended release 24 hr PO topiramate 50 mg tablet nitrofurantoin monohyd/m-cryst 100 mg capsule Follow-up/Referrals: Emilio,Siddhartha Ledesma MD [Primary Care Provider] -
[2024-07-05] MEDS: SULFAMETHOXAZOLE/TRIMETHOPRIM 800/160 MG DS TABLET 2 TAB PO (15:18)
[2024-07-05 15:22] LABS: Add Urine Microscopic? YES; Appearance Urine Clear (Clear); Bilirubin Urine Negative (Negative); Blood Urine Negative (Negative); Color Urine Yellow (Yellow); Glucose Urine UA Negative (Negative); Ketones Urine Negative (Negative); Leukocyte Esterase Ur Trace LEU/UL (Negative); Nitrate Urine Negative (Negative); Protein Urine Negative (Negative); Urobilinogen Urine 0.2 mg/dL (0.2-1.0)
[2024-07-05 15:27] LABS: Amorphous Sediment Urine Few; RBC Urine 0-2 /hpf (0-2); Squamous Epithelial Cell Urine Moderate /hpf (Few); WBC Urine 0-3 /hpf (0-3)
--- OUTSIDE RECORDS SUMMARY | 2024-07-05 15:29 | XMS_ITS ---
Care Plan - [facility] Created on: July 05, 2024 AJAY QUINTERO : 1990 Sex: Female Author Organization [facility] Address [address] [place] [address] Phone Care Team Providers Care Perinatal Specialist Name Role Phone DOUGIE HYMAN, RAMEZ C Unavailable [phone]
--- OUTSIDE RECORDS SUMMARY | 2024-07-05 15:29 | XMS_ITS | Encounter Summary ---
Author Organization [facility] Address [address] [place] [address] Phone Care Team Providers Care Church Warden Name Role Phone Max Granados MD Primary Care Provider [phone] Siddhartha Jhaveri MD Primary Care Provider Max Granados MD Primary Care Provider [phone] Max Granados MD Primary Care Provider [phone] Max Granados MD Primary Care Provider [phone] Max Granados MD Primary Care Provider [phone] Max Granados MD Primary Care Provider [phone] Siddhartha Jhaveri MD Primary Care Provider Siddhartha [...] on file Legal Sex Female 12:32 AM [employer] Gender Identity Not on file Sexual Orientation Not on file documented as of this encounter Plan of Treatment Not on file documented as of this encounter Procedures Procedure Name Priority Date/Time Associated Diagnosis Comments OBSTETRIC/GYNECOLOGY ULTRASONOGRAPHY REPORT 08/22/2017 4:06 PM CDT OBSTETRIC/GYNECOLOGY ULTRASONOGRAPHY REPORT 07/26/2017 10:07 AM [employer] documented in this encounter Results * OBSTETRIC/GYNECOLOGY ULTRASONOGRAPHY REPORT (08/22/2017 4:06 PM CDT) Anatomical Region Laterality Modality Ultrasound us Provider Scanning IMG OB US PROCEDURES Final Res ult * OBSTETRIC/GYNECOLOGY ULTRASONOGRAPHY REPORT (07/26/2017 10:07 AM [employer]) Anatomical Region Laterality Modality Ultrasound us Provider Scanning IMG OB US PROCEDURES Final Res ult documented in this encounter Visit Diagnoses Not on filedocumented in this encounter Additional Health Concerns Infection Onset Date Last Indicated Resolved Time COVID: Suspected 07/18/2022 07/18/2022 07/18/2022 12:57 PM [employer] COVID19 07/18/2022 07/18/2022 07/28/2022 3:05 AM [employer] COVID: Recovered Comment:Added based on recent COVID infection. 07/28/2022 07/30/2022 10/26/2022 3:05 AM C DT documented as of this encounter Care Teams Church Warden Relationship Specialty Start Date End Date Max Granados MD [address] [place] [id number] PCP - General 07/26/17 07/26/17 Siddhartha Jhaveri MD [address] [place] [id number] PCP - General 07/27/17 08/15/17 Max Granados MD [address] [place] [id number] PCP - General 08/16/17 08/21/17 Max Granados MD [address] [place] [id number] PCP - General 08/22/17 09/02/17 Max Granados MD [address] [place] [id number] PCP - General 09/03/17 09/03/17 Max Granados MD [address] [place] [id number] PCP - General 09/04/17 10/02/17 Max Granados MD [address] [place] [id number] PCP - General 10/03/17 10/03/17 Siddhartha Jhaveri MD [address] [place] [id number] PCP - General 10/04/17 10/13/17 Siddhartha Jhaveri MD [address] [place] [id number] PCP - General 10/14/17 documented as of this encounter
--- OUTSIDE RECORDS SUMMARY | 2024-07-05 15:29 | XMS_ITS | Clinical Summary ---
Author Organization [facility] Address [address] [place] [address] Phone Care Team Providers Care Case Management Associate Name Role Phone RAMEZ CONSTANTINO MD Unavailable [phone] Reason for Visit and Chief Complaint The Chief Complaint is: WWE Problems Includes: Problems addressed during this encounter and other active Problems Current Visit Onset Date Resolved Date Provider Conditio n Status History of Breast Disorders 07/08/2017 Unknown RAMEZ CONSTANTINO MD Resolved Last Documented On 07/23/2018 11:26AM ; [facility] Note: was Closed. History of Depression 07/08/2017 Unknown RAMEZ CONSTANTINO MD Resolved Last Documented On 07/23/2018 11:26AM ; [facility] Note: was Closed. Past Visits Onset Date Resolved Date Provider Condition Status Hypertension Systemic 02/01/2017 SHAILESH DUMONT NP-BC Active Last Documented On 7 9:39AM ; [facility] Risk: Tobacco Use 01/24/2016 SHAILESH DUMONT NP -BC Active Last Documented On 6 2:51PM ; [facility] Plan of Treatment - Clinical summary provided to patient - Last Documented On 02/25/2020 3:46PM ; [facility] Instructions to patient Instructions for patient : B reast Self Exam discussed Last Documented On 0 3:20PM ; [facility] Lose weight Last Documented On 0 3:20PM ; [facility] Education and Decision Aids were provided during visit for: Patient Education: Daily shima cium and vitamin D Last Documented On 0 3:20PM ; [facility] Patient Education: weight be aring exercise Last Documented On 0 3:20PM ; [facility] Smoking cessation advised Last Documented On 0 3:46PM ; [facility] Assessments Includes: Assessments from this encounter Findings - NORMAL FEMALE EXAM [Z01.419 - Encounter for gynecological examination (general) (routine) without abnormal findings] - Last Documented On 02/25/2020 3:46PM ; [facility] Instructions Includes: Instructions from this encounter Instructions to patient Instructions for patient : B reast Self Exam discussed Last Documented On 0 3:20PM ; [facility] Lose weight Last Documented On 0 3:20PM ; [facility] Education and Decision Aids were provided during visit for: Patient Education: Daily shima cium and vitamin D Last Documented On 0 3:20PM ; [facility] Patient Education: weight be aring exercise Last Documented On 0 3:20PM ; [facility] Smoking cessation advised Last Documented On 0 3:46PM ; [facility] Medical Equipment - Implanted Devices Includes: Current Devices No Medical Equipment Recorded Medications Includes: Medications discussed during this encounter and other current Medications Discontinued / Stopped on this date RAMEZ CONSTANTINO MD on 07/12/2017 Ampicillin 500MG Oral Capsule Provider: RAMEZ CONSTANTINO MD Diagnosis: Last Documented On 0 3:28PM By MARIANNA MOELLER LPN ; [facility] Adult Aspirin EC Low Strength 81MG Oral Tablet Delayed Release Provider: Diagnosis: Last Documented On 0 3:28PM By MARIANNA MOELLER LPN ; [facility] Current Medications (continue as prescribed) Escitalopram Oxalate 5MG Oral Tablet 07/08/2017 Prov ider: Diagnosis: Last Documented On 8 4:11PM By GRACIELA OLEA ; [facility] Albuterol Sulfate (2.5 MG/3ML) 0.083% Nebulizati on solution 08/01/2015 Provider: Diagnosis: Last Documented On 08/01/2015 2:59PM By MARQUES HDEZ CMA ; [facility] Past Medications on file Procardia XL 30MG Oral Table t Extended Release 24 Hour 08/29/2017 - 11/27/2017 Provider: SHAILESH MIRANDA WHNP-BC Diagnosis: One tablet daily Last Documented On 8 3:53PM By SHAILESH DUMONT [facility] ; [facility] Terazol 7 0.4% Vaginal Cream 06/24/2017 - 07/24/2017 P rovider: SHAILESH DUMONT [facility] Diagnosis: as directed - insert one jasmin licator full pv q hs x 7 nocs Last Documented On 8 9:51AM By SHAILESH DUMONT [facility] ; [facility] Angie 0.35 MG Tablet 12/27/2015 - 01/24/2016 Provider : AUDRA GARNER MD Diagnosis: One tablet daily Last Documented On 12/27/2015 3:23PM By AUDRA GARNER MD ; [facility] NIFEdipine ER 30 MG Tablet, extended-release 24 hour 08/09/2015 - 09/23/2015 Provider: AUDRA MOISE MD Diagnosis: ii po daily at same time Last Documented On 08/09/2015 3:19PM By AUDRA GARNER MD ; [facility] Cephalexin 500 MG Tablet 08/05/2015 - 08/15/2015 Provi alba: AUDRA GARNER MD Diagnosis: One tablet four times a day Last Documented On 08/05/2015 11:27AM By AUDRA GARNER MD ; [facility] Hydrocodone-Acetaminophen 5- 325 MG Tablet 08/01/2015 - 08/04/2015 Provider: AUDRA GARNER MD Diagnosis: 1-2 every 4-6 hours as needed Last Documented On 08/01/2015 3:00PM By AUDRA GARNER MD ; [facility] Breast Pump Miscellaneous 07/19/2015 - 07/18/2016 Provider: AUDRA GARNER MD Diagnosis: Encounter for ca re and examination of lactating mother as directed Last Documented On 07/19/2015 4:31PM By AUDRA GARNER MD ; [facility] ValACYclovir HCl 1 GM Tablet 07/14/2015 - 09/12/2015 P rovider: AUDRA GARNER MD Diagnosis: One tablet daily Last Documented On 07/14/2015 8:43AM By AUDRA GARNER MD ; [facility] Triveen-Duo DHA 29-1-200 & 4 00 MG Miscellaneous 01/27/2015 - 10/24/2015 Provider: AUDRA GARNER MD Diagnosis: One tablet daily Last Documented On 01/27/2015 10:08AM By AUDRA GARNER MD ; [facility] Bactrim DS 800-160 MG OR TABS 05/16/2011 - 05/19/2011 Provider: SHAILESH PAPPAS Diagnosis: Last Documented On 1 11:57AM By SHAILESH PAPPAS ; [facility] THEODORA 3-0.02 MG OR TABS 04/18/2011 - 04/12/2012 Provider : SHAILESH PAPPAS Diagnosis: Last Documented On 1 10:25AM By SHAILESH PAPPAS ; [facility] Bactrim DS 800-160 MG OR TABS 08/17/2009 - 08/20/2009 Provider: SHAILESH PAPPAS Diagnosis: Last Documented On 0 3:26PM By SHAILESH PAPPAS ; [facility] Bactrim DS 800-160 MG OR TABS 05/02/2009 - 05/05/2009 Provider: Diagnosis: Last Documented On 06/14/2009 12:23PM By CARMENCITA AVERY ; [facility] [place] 3-0.02 MG OR TABS 02/09/2009 - 02/04/2010 Provider : Diagnosis: Last Documented On 06/14/2009 12:24PM By CARMENCITA AVERY ; [facility] Medications Administered Includes: Administered Medications from this encounter No Administered Medications Recorded Vital Signs Includes: Vital Signs from this encounter Vital Name 02/25/2020 03:18P Blood Pressure Sitting (mmHg) 120/78 Temp-Oral (F) 97.5 Height (in) 64 Weight (lb) 236 Body Mass Index (kg/m2) 40.5 Body Surface Area (m2) 2.1 Last Documented: On 02/25/2020 3:25PM ; [facility] Results Includes: Results discussed during this encounter [...] 02/25/2020 Last Documented On 0 3:46PM ; [facility] Smoking Status Unknown Procedures and Surgical History Includes: Procedures from this encounter Procedures Code Diagnosis Performing Provider Service L ocation Service Date low fat diet Last Documented On 0 3:20PM ; [facility] Cervical Pap Smear performed [id number] Last Documented On 0 3:20PM ; [facility] Surgical History Last Updated History of tubal ligation 02/25/2020 Last Documented On 0 3:46PM ; [facility] History of cholecystectomy 02/25/2020 Last Documented On 0 3:46PM ; [facility] History of surgery gallbladder removal 1 Last Documented On 0 3:46PM ; [facility] Surgical / procedural history c/s 2019 Last Documented On 0 3:46PM ; [facility] Medical History Includes: Medical History addressed during this encounter Description Last Updated Para 2 02/25/2020 Last Documented On 0 3:46PM ; [facility] Sexually active 02/25/2020 Last Documented On 0 3:46PM ; [facility] LMP: 02/18/2020 02/25/2020 Last Documented On 0 3:46PM ; [facility] 2 02/25/2020 Last Documented On 0 3:46PM ; [facility] History of asthma 02/25/2020 Last Documented On 0 3:46PM ; [facility] History of benign essential hypertension 02/25/2020 Last Documented On 0 3:46PM ; [facility] History of breast disorders FOB [place] cancer 02/25/2020 Last Documented On 0 3:46PM ; [facility] History of depression MOB an d FOB and both families: pt previously on meds at 22 y old x 2 yrs: unsure of med; no meds in last preg; no post depression; 02/25/2020 Last Documented On 0 3:46PM ; [facility] Family History Includes: Family History addressed during [...] Time Diagnosis WELL WOMAN EXAM SHAILESH DUMONT [facility] 02/25/20 20 3:30PM 3:46PM Normal Female Exam Insurance Includes: Active Insurance Policies Plan Name Member ID Group # Subscriber Relationship Effect beatris Dates 1 - [facility] [id number] AJAY QUINTERO Se lf Clinical Notes Includes: Clinical Notes from this encounter No Clinical Notes Recorded
--- OUTSIDE RECORDS SUMMARY | 2024-07-05 15:29 | XMS_ITS | Clinical Summary ---
Author Organization [facility] Address [address] [place] [address] Phone Care Team Providers Care Portfolio Mgr Name Role Phone RAMEZ CONSTANTINO MD Unavailable [phone] Reason for Visit and Chief Complaint WELL WOMAN EXAM Problems Includes: Problems addressed during this encounter and other active Problems All Visits Onset Date Resolved Date Provider Condition S tatus Hypertension Systemic 02/01/2017 SHAILESH DUMONT NP-BC Active Last Documented On 7 9:39AM ; [facility] Risk: Tobacco Use 01/24/2016 SHAILESH DUMONT NP -BC Active Last Documented On 6 2:51PM ; [facility] Plan of Treatment No Plan of [...] On 8 4:11PM By GRACIELA OLEA ; [facility] Albuterol Sulfate (2.5 MG/3ML) 0.083% Nebulizati on solution 08/01/2015 Provider: Diagnosis: Last Documented On 08/01/2015 2:59PM By MARQUES HDEZ CMA ; [facility] Medications Administered Includes: Administered Medications from this [...] Subscriber Relationship Effect beatris Dates 1 - [facility] [id number] AJAY QUINTERO Se lf Clinical Notes Includes: Clinical Notes from this encounter No Clinical Notes Recorded
--- OUTSIDE RECORDS SUMMARY | 2024-07-05 15:29 | XMS_ITS | Clinical Summary ---
Author Organization [facility] Address [address] [place] [address] Phone Care Team Providers Care Rinkman Name Role Phone RAMEZ CONSTANTINO MD Unavailable [phone] Reason for Visit and Chief Complaint NEW OB EXAM Problems Includes: Problems addressed during this encounter and other active Problems Current Visit Onset Date Resolved Date Provider [place] Status Alcohol Use 07/08/2017 Unknown RAMEZ CONSTANTINO MD Resolved Last Documented On 07/23/2018 11:26AM ; [facility] Note: was Closed. Exposure To Contagious Viral Disease 07/08/2017 Unknown RAMEZ CONSTANTINO MD Resolved Last Documented On 07/23/2018 11:26AM ; [facility] Note: was Closed. History of Breast Disorders 07/08/2017 Unknown RAMEZ CONSTANTINO MD Resolved Last Documented On 07/23/2018 11:26AM ; [facility] Note: was Closed. History of Depression 07/08/2017 Unknown RAMEZ CONSTANTINO MD Resolved Last Documented On 07/23/2018 11:26AM ; [facility] Note: was Closed. History of Diabetes Mellitus 07/08/2017 Unknown RAMEZ CONSTANTINO MD Resolved Last Documented On 07/23/2018 11:26AM ; [facility] Note: was Closed. History of Essential Hypertension 07/08/2017 Unknown RAMEZ CONSTANTINO MD Resolved Last Documented On 07/23/2018 11:26AM ; [facility] Note: was Closed. History of Thromboembolic Disease 07/08/2017 Unknown RAMEZ CONSTANTINO MD Resolved Last Documented On 07/23/2018 11:26AM ; [facility] Note: was Closed. History of Thyroid Disorders 07/08/2017 Unknown RAMEZ CONSTANTINO MD Resolved Last Documented On 07/23/2018 11:26AM ; [facility] Note: was Closed. Medical History Infections 07/08/2017 Unknown RAMEZ CONSTANTINO MD Resolved Last Documented On 07/23/2018 11:26AM ; [facility] Note: was Closed. Reported Family History of Genetic Disease 07/08/2017 Unknown RAMEZ CONSTANTINO MD Resolved Last Documented On 07/23/2018 11:26AM ; [facility] Note: was Closed. Respiratory Disorders 07/08/2017 Unknown RAMEZ CONSTANTINO MD Resolved Last Documented On 07/23/2018 11:26AM ; [facility] Note: was Closed. Smoking During 07/08/2017 Unknown RAMEZ CONSTANTINO MD Resolved Last Documented On 07/23/2018 11:26AM ; [facility] Note: was Closed. Tobacco Use 07/08/2017 Unknown RAMEZ CONSTANTINO MD Resolved Last Documented On 07/23/2018 11:26AM ; [facility] Note: was Closed. Exposure To Herpes Simplex 07/08/2017 Unknown RAMEZ CONSTANTINO MD Resolved Last Documented On 07/23/2018 11:26AM ; [facility] Note: was Closed. Alcohol Use 01/27/2015 Unknown RAMEZ CONSTANTINO MD Resolved Last Documented On 09/06/2015 2:11PM ; [facility] Note: was Closed. Smoking During 01/27/2015 Unknown RAMEZ CONSTANTINO MD Resolved Last Documented On 09/06/2015 2:11PM ; [facility] Note: was Closed. Tobacco Use 01/27/2015 Unknown AUDRA GARNER MD Resolve d Last Documented On 09/06/2015 2:11PM ; [facility] Note: was Closed. Exposure To Herpes Simplex 01/27/2015 Unknown AUDRA GARNER MD Resolved Last Documented On 09/06/2015 2:11PM ; [facility] Note: was Closed. Past Visits Onset Date Resolved Date Provider Condition Status Hypertension Systemic 02/01/2017 SHAILESH DUMONT WHNP-BC Active Last Documented On 7 9:39AM ; [facility] Risk: Tobacco Use 01/24/2016 SHAILESH DUMONT WHNP -BC Active Last Documented On 6 2:51PM ; [facility] Plan of Treatment No Plan [...] On 8 4:11PM By GRACIELA OLEA ; [facility] Current Medications (continue as prescribed) Escitalopram Oxalate 5MG Oral Tablet 07/08/2017 Prov ider: Diagnosis: Last Documented On 8 4:11PM By GRACIELA OLEA ; [facility] Albuterol Sulfate (2.5 MG/3ML) 0.083% Nebulizati on solution 08/01/2015 Provider: Diagnosis: Last Documented On 08/01/2015 2:59PM By MARQUES HDEZ CMA ; [facility] Medications Administered Includes: Administered Medications from this encounter No Administered Medications Recorded Vital Signs Includes: Vital Signs from this encounter Vital Name 07/08/2017 03:57P Blood Pressure Sitting (mmHg) 112/70 Height (in) 64 Weight (lb) 240.125 Body Mass Index (kg/m2) 41.2 Body Surface Area (m2) 2.1 Last Documented: On 07/08/2017 4:24PM ; [facility] Results Includes: Results discussed during this encounter No Results Recorded For Specified Dates History of Present Illness Includes: History of Present Illness from this encounter No History of Present Illness Recorded Social History Description Last Updated Alcohol use 07/08/2017 Last Documented On 8 5:29PM ; [facility] Tobacco use 07/08/2017 Last Documented On 8 5:29PM ; [facility] Smoking Status Unknown Procedures and Surgical History Surgical History Last Updated History of surgery 07/08/2017 Last Documented On 8 5:29PM ; [facility] Medical History Includes: Medical History addressed during this encounter Description Last Updated History of breast disorders 07/08/2017 Last Documented On 8 5:29PM ; [facility] History of depression 07/08/2017 Last Documented On 8 5:29PM ; [facility] Previous hospitalizations 07/08/2017 Last Documented On 8 5:29PM ; [facility] Family History Includes: Family History [...] Diagnosis NEW OB EXAM RAMEZ CONSTANTINO MD [facility] [employer]PER[employer] 8 3:41PM 5:18PM Insurance Includes: Active Insurance Policies Plan Name Member ID Group # Subscriber Relationship Effect beatris Dates 1 - [facility] [id number] AJAY QUINTERO Se lf Clinical Notes Includes: Clinical Notes from this encounter No Clinical Notes Recorded
--- OUTSIDE RECORDS SUMMARY | 2024-07-05 15:29 | XMS_ITS | Clinical Summary ---
Author Organization [facility] Building A Address [address] [place] [address] Care Team Providers Care Nanotechnician Name Role Phone Siddhartha Jhaveri MD Primary [...] dizziness Assessment & Plan (07/30/2022 1:29 PM STONE SPREADER OPERATOR): States she is in a better place [...] 07/30/2022 Assessment & Plan (07/30/2022 8:54 PM STONE SPREADER OPERATOR): Daily use Intractable headache 07/18/2022 Assessment & Plan (07/30/2022 1:29 PM STONE SPREADER OPERATOR): Will try adding topamax 25mg at bedtime. D/c melatonin, which she is taking too much of. Could be contributing to vertigo and headaches. F/u 6 weeks Assessment & Plan (07/18/2022 3:00 PM STONE SPREADER OPERATOR): Having migraines with onset during sexual relations. She has tried propranolol a few times as given by NEIDA Zepeda last week without improvement. Will give indomethacin to try as alternative. Briefly discussed triptan. Will try indomethacin first. Discussed GI SE's. Will only take prn. Call if continues to have headaches COVID-19 07/18/2022 Assessment & Plan (07/18/2022 2:58 PM STONE SPREADER OPERATOR): Discussed quarantine, offered paxlovid, discussed risks/benefits. Patient declines at this time. Symptoms are mild. Indomethacin given for current headache as well as future headaches prn. May f/u prn Diaphoresis 07/18/2022 Assessment & Plan (07/18/2022 2:59 PM STONE SPREADER OPERATOR): Having night sweats. She asked what they [...] granuloma Assessment & Plan (07/19/2020 9:34 AM STONE SPREADER OPERATOR): 64 ounces of caffeine free and soda [...] 07/18/2022 Assessment & Plan (07/19/2020 9:34 AM STONE SPREADER OPERATOR): 64 ounces of caffeine free and soda free fluid daily Continue omeprazole 20 mg Follow up in 2 months to recheck right posterior vocal cord granuloma Choking episode 07/19/2020 07/18/2022 Assessment & Plan (07/19/2020 9:22 PM STONE SPREADER OPERATOR): 64 ounces of caffeine free and soda free fluid daily Continue omeprazole 20 mg Follow up in 2 months to recheck right posterior vocal cord granuloma Ganglion cyst of volar aspect of right wrist 0 07/25/2020 Carpal tunnel syndrome of right wrist 03/04/2020 07/25/2020 Overview (03/04/2020): Added automatically from request for surgery [id number] Ganglion of right wrist 03/04/2020 03/0 05/2020 Overview (03/04/2020): Added automatically from request for surgery [id number] Paresthesia of hand, bilateral 10/09/2019 07/18/2022 Assessment [...] Viral gastroenteritis 12/05/20172017 Overview (12/05/2017): Seen in [facility] 12/04 for n/v/d. MRI without appendicitis and e/o colitis. Rx for zofran/imodium for symptomatic relief Supervision of high-risk pre gnancy, third trimester 12/05/2017 01/23/2018 Overview (12/16/2017): Added automatically from request for surgery [id number] Chronic hypertension affecting 10/29/2017 01/09/2018 Overview (01/02/2018): [...] -r/o for preE in 12/30 in the [facility], rx for fioricet -rC/S scheduled 01/09/18 at [...] Overview (01/09/2018): [] Co-management vs. [x] Full [facility] Care Referring Provider: [x] Dating Criteria: DIAMOND [...] 10/29/2017 Assessment & Plan (04/16/2017 1:35 PM STONE SPREADER OPERATOR): Strep screen neg and aba setup a culture. Gargle with 1/2 peroxide and water several time s a day Bilateral serous otitis media 04/16/2017 10/29/2017 Assessment & Plan (04/16/2017 1:34 PM STONE SPREADER OPERATOR): ers are not infected. The bluntingo fthehhering [...] Plan (02/07/2017 9:47 AM CDT): Recommended Flonase [id number] to assist with inter nasal congestion along [...] Department Care Team Description 07/02/2024 Orders Only [address] [address] Amalia Collier NP 07/01/2024 4:13 PM STONE SPREADER OPERATOR - 07/01/2024 11:59 PM STONE SPREADER OPERATOR Hospital Encounter [address] [id number] Acute vaginitis Discharge Disposition: Discharge to home or self care 07/01/2024 3:15 PM STONE SPREADER OPERATOR Office Visit [facility] at [address] [address] Ban Barton PA Acute vaginitis [...] LAPAROSCOPIC CHOLECYSTECTOMY 05/27/2015 - 05/26/2016 Cholecystectomy, laparoscopic [place] DELIVERY ONLY Section - (Added by TW Conv) [place] CHOLECYSTECTOMY Cholecystectomy - (Added by TW Conv) SECTION CHOLECYSTECTOMY WISDOM TOOTH EXTRACTION FOOT SURGERY TUBAL LIGATION Medical History Medical History Date Comments Polycystic ovary syndrome Hypertension during Polycystic ovarian disease Depression Chronic bronchitis (HCC) Ganglion cyst of volar aspec t of right wrist 03/04/2020 Carpal tunnel syndrome of right wrist 03/04/2020 Added automatically from request for surgery [id number] History of severe pre-eclampsia 09/03/2017 Choking episode [...] on file Legal Sex Female 12:32 AM STONE SPREADER OPERATOR Gender Identity Not on file Sexual [...] MILLE R,BOY MILLICENT Complications:Other (Comment ),None Delivery Location:[facility] ([facility]) Last Filed Vital Signs Vital Sign Reading Time Taken Comments Blood Pressure 121/88 07/01/2024 3:21 PM STONE SPREADER OPERATOR Pulse 83 07/01/2024 3:21 PM STONE SPREADER OPERATOR Temperature 36.9 C (98.5 F) 07/01/2024 3:21 PM STONE SPREADER OPERATOR Respiratory Rate 18 07/01/2024 3:21 PM STONE SPREADER OPERATOR Oxygen Saturation 99% 07/01/2024 3:21 PM STONE SPREADER OPERATOR Inhaled Oxygen Concentration - - Weight 90.9 kg (200 lb 8 oz) 07/01/2024 3:21 PM STONE SPREADER OPERATOR Height 157.5 cm (5' 2.01 ) 07/01/2024 3:21 PM CS T Body Mass Index 36.66 07/01/2024 3:21 PM STONE SPREADER OPERATOR Plan of Treatment Health Maintenance Due Date [...] Comments VAGINITIS PANEL Routine 07/01/2024 4:13 PM STONE SPREADER OPERATOR Acute vaginitis from Last 3 Months Results * (ABNORMAL) Vaginitis panel Vaginal (07/01/2024 4:13 PM STONE SPREADER OPERATOR) Abbi DNA probe Not Detected Not Detected Comment:Testing performed by : [facility], [address] [place] [address], [place]., [address] Gardnerella DNA probe Detected(A) Not Detected RENAY BAIG Comment:Testing performed by : [facility], [address] [place] [address]., [id number] Trichomonas DNA probe Not Detected Not Detected RENAY BAIG Comment: Interpretive Data Testing performed by [facility] via Affirm VPIII Microbial Identification Test, a [...] last revised on 2020. Testing performed by: [facility], [address] [place] [address]., [id number] Vaginal 07/01/2024 4:13 PM STONE SPREADER OPERATOR 07/02/2024 1:06 PM STONE SPREADER OPERATOR us Ban [facility] MICRO[facility] - GENER AL ORDERABLES Final Result RENAY BAIG [id number] [address] Department [place] [address] from Last 3 Months Insurance [facility] [employer] [place] Advance Directives For more information, please contact: [phone] * Full Code (Latest Code Status on File) Date Activated Date Inactivated Comments 01/09/2018 4:20 PM 01/11/2018 6:59 PM * Full Code Date Activated Date Inactivated Comments 01/09/2018 7:54 AM 01/09/2018 4:20 PM Full CPR in case of cardiopulmonary arrest * Full Code Date Activated Date Inactivated Comments 12/05/2017 3:33 AM 12/05/2017 7:02 AM Care Teams Nanotechnician Relationship Specialty Start Date End Date Siddhartha Jhaveri MD PCP - General 10/14/17
--- OUTSIDE RECORDS SUMMARY | 2024-07-05 15:29 | XMS_ITS | Referral Summary ---
Author Organization [facility] Medical Office Building A Address [address] [place] [address] Care Team Providers Care Evaluation Manager Name Role Phone Siddhartha Jhaveri MD Primary Care Provider Encounters Date Type Department Care Team Description 07/02/2024 Orders Only [address] [address] Amalia Collier NP 07/01/2024 4:13 PM RESIDENT DIRECTOR - 07/01/2024 11:59 PM RESIDENT DIRECTOR Hospital Encounter [address] [address] Acute vaginitis Discharge Disposition: Discharge to home or self care 07/01/2024 3:15 PM RESIDENT DIRECTOR Office Visit [facility] Care at [address] [address] Ban Barton PA Acute vaginitis [...] dizziness Assessment & Plan (07/30/2022 1:29 PM RESIDENT DIRECTOR): States she is in a better place [...] 07/30/2022 Assessment & Plan (07/30/2022 8:54 PM RESIDENT DIRECTOR): Daily use Intractable headache 07/18/2022 Assessment & Plan (07/30/2022 1:29 PM RESIDENT DIRECTOR): Will try adding topamax 25mg at bedtime. D/c melatonin, which she is taking too much of. Could be contributing to vertigo and headaches. F/u 6 weeks Assessment & Plan (07/18/2022 3:00 PM RESIDENT DIRECTOR): Having migraines with onset during sexual relations. She has tried propranolol a few times as given by [facility] Zepeda last week without improvement. Will give indomethacin to try as alternative. Briefly discussed triptan. Will try indomethacin first. Discussed GI SE's. Will only take prn. Call if continues to have headaches COVID-19 07/18/2022 Assessment & Plan (07/18/2022 2:58 PM RESIDENT DIRECTOR): Discussed quarantine, offered paxlovid, discussed risks/benefits. Patient declines at this time. Symptoms are mild. Indomethacin given for current headache as well as future headaches prn. May f/u prn Diaphoresis 07/18/2022 Assessment & Plan (07/18/2022 2:59 PM RESIDENT DIRECTOR): Having night sweats. 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 MRI without appendicitis and e/o colitis. Rx for zofran/imodium for symptomatic relief Supervision of high-risk pre gnancy, third trimester 12/05/2017 01/23/2018 Overview (12/16/2017): Added automatically from request for surgery [id number] Chronic hypertension affecting 10/29/2017 01/09/2018 Overview (01/02/2018): [...] -r/o for preE in 12/30 in the [facility], rx for fioricet -rC/S scheduled 01/09/18 at 11:30 -review of BP log 01/02 shows normal to mild range, no symptoms Assessment & Plan (12/24/2017 4:14 PM CDT): BP log reviewed. All blood pressures normal/mild range. Reviewed BP parameters and [facility] precautions Continues to have headaches that resolve [...] Denies blurred or double vision - Strict [facility] precautions reviewed Assessment & Plan (11/14/2017 7:06 [...] 10/29/2017 Assessment & Plan (04/16/2017 1:35 PM RESIDENT DIRECTOR): Strep screen neg and aba setup a culture. Gargle with 1/2 peroxide and water several time s a day Bilateral serous otitis media 04/16/2017 10/29/2017 Assessment & Plan (04/16/2017 1:34 PM RESIDENT DIRECTOR): ers are not infected. The bluntingo fthehhering [...] Plan (02/07/2017 9:47 AM CDT): Recommended Flonase [id number] to assist with inter nasal congestion along [...] on file Legal Sex Female 12:32 AM RESIDENT DIRECTOR Gender Identity Not on file Sexual Orientation Not on file Last Filed Vital Signs Vital Sign Reading Time Taken Comments Blood Pressure 121/88 07/01/2024 3:21 PM RESIDENT DIRECTOR Pulse 83 07/01/2024 3:21 PM RESIDENT DIRECTOR Temperature 36.9 C (98.5 F) 07/01/2024 3:21 PM RESIDENT DIRECTOR Respiratory Rate 18 07/01/2024 3:21 PM RESIDENT DIRECTOR Oxygen Saturation 99% 07/01/2024 3:21 PM RESIDENT DIRECTOR Inhaled Oxygen Concentration - - Weight 90.9 kg (200 lb 8 oz) 07/01/2024 3:21 PM RESIDENT DIRECTOR Height 157.5 cm (5' 2.01 ) 07/01/2024 3:21 PM CS T Body Mass Index 36.66 07/01/2024 3:21 PM RESIDENT DIRECTOR Plan of Treatment Not on file Procedures Procedure Name Priority Date/Time Associated Diagnosis Comments VAGINITIS PANEL Routine 07/01/2024 4:13 PM RESIDENT DIRECTOR Acute vaginitis from Last 3 Months Results * (ABNORMAL) Vaginitis panel Vaginal (07/01/2024 4:13 PM RESIDENT DIRECTOR) Abbi DNA probe Not Detected Not Detected Comment:Testing performed by : [facility], [address] [place] [address]., [id number] Gardnerella DNA probe Detected(A) Not Detected [facility] Comment:Testing performed by : [facility], [address] [place] [address]., [id number] Trichomonas DNA probe Not Detected Not Detected RENAY Comment: Interpretive Data Testing performed by [facility] via Affirm VPIII Microbial Identification [...] last revised on 2020. Testing performed by: [facility], [facility], [place]., [address] Vaginal 07/01/2024 4:13 PM RESIDENT DIRECTOR 07/02/2024 1:06 PM RESIDENT DIRECTOR us Ban [facility] MICROBI[facility] - GENER AL ORDERABLES Final Result RENAY [id number] [address] Department [place] [address] from Last 3 Months Insurance [email or web address] [place] [email or web address] [place] [email or web address] [place] Advance Directives For more information, please contact: [phone] * Full Code (Latest Code Status on File) Date Activated Date Inactivated Comments 01/09/2018 4:20 PM 01/11/2018 6:59 PM * Full Code Date Activated Date Inactivated Comments 01/09/2018 7:54 AM 01/09/2018 4:20 PM Full CPR in case of cardiopulmonary arrest * Full Code Date Activated Date Inactivated Comments 12/05/2017 3:33 AM 12/05/2017 7:02 AM Care Teams Evaluation Manager Relationship Specialty Start Date End Date Siddhartha Jhaveri MD PCP - General 10/14/17
--- OUTSIDE RECORDS SUMMARY | 2024-07-05 15:29 | XMS_ITS | Encounter Summary ---
Author Organization [facility] Address [address] [place] [address] Phone Care Team Providers Care Pyrotechnics Press Tender Name Role Phone Max Granados MD Primary Care Provider + [phone] Max Granados MD Primary Care Provider + [phone] Max Granados MD Primary Care Provider + [phone] Siddhartha Jhaveri MD Primary Care Provider Siddhartha [...] on file Legal Sex Female 12:32 AM DENTAL INSTRUCTOR Gender Identity Not on file Sexual Orientation [...] COVID: Suspected 07/18/2022 07/18/2022 07/18/2022 12:57 PM DENTAL INSTRUCTOR COVID19 07/18/2022 07/18/2022 07/28/2022 3:05 AM DENTAL INSTRUCTOR COVID: Recovered Comment:Added based on recent COVID infection. 07/28/2022 07/30/2022 10/26/2022 3:05 AM C DT documented as of this encounter Care Teams Pyrotechnics Press Tender Relationship Specialty Start Date End Date Max Granados MD [address] [place] [address] PCP - General 09/03/17 09/03/17 Max Granados MD [address] [place] [address] PCP - General 09/04/17 10/02/17 Max Granados MD [address] [place] [address] PCP - General 10/03/17 10/03/17 Siddhartha Jhaveri MD [address] [place] [address] PCP - General 10/04/17 10/13/17 Siddhartha Jhaveri MD [address] [place] [address] PCP - General 10/14/17 documented as of this encounter
--- OUTSIDE RECORDS SUMMARY | 2024-07-05 15:29 | XMS_ITS | Clinical Summary ---
Author Organization [facility] Address [address] [place] [address] Phone Care Team Providers Care Banbury Mixer Operator Name Role Phone RAMEZ CONSTANTINO MD Unavailable [phone] Reason for Visit and Chief Complaint * PHONE CALL Problems Includes: Problems addressed during this encounter and other active Problems All Visits Onset Date Resolved Date Provider Condition S tatus Hypertension Systemic 02/01/2017 SHAILESH DUMONT NP-BC Active Last Documented On 7 9:39AM ; [facility] Risk: Tobacco Use 01/24/2016 SHAILESH DUMONT NP -BC Active Last Documented On 6 2:51PM ; [facility] Plan of Treatment No Plan of [...] 4 x a day till gone Pharmacy: [facility]/pharmacy #[id number], [address] - Last Documented On 0 3:28PM By MARIANNA MOELLER LPN ; [facility] Current Medications (continue as prescribed) Escitalopram Oxalate 5MG Oral Tablet 07/08/2017 Prov ider: Diagnosis: Last Documented On 8 4:11PM By GRACIELA OLEA ; [facility] Albuterol Sulfate (2.5 MG/3ML) 0.083% Nebulizati on solution 08/01/2015 Provider: Diagnosis: Last Documented On 08/01/2015 2:59PM By MARQUES HDEZ SUPERVISOR [employer] ; [facility] Medications Administered Includes: Administered Medications [...] Subscriber Relationship Effect beatris Dates 1 - [facility] [id number] AJAY QUINTERO Se lf Clinical Notes Includes: Clinical Notes from this encounter No Clinical Notes Recorded
--- OUTSIDE RECORDS SUMMARY | 2024-07-05 15:29 | XMS_ITS | Clinical Summary ---
Author Organization [facility] Address [address] [place] [address] Phone Care Team Providers Care Fruit Sprayer Name Role Phone Siddhartha Jhaveri MD Primary [...] Comments Blood Pressure 148/91 06/17/2017 6:15 PM MANAGER BABY Pulse 75 06/17/2017 6:15 PM MANAGER BABY Temperature 36.4 C (97.6 F) 06/17/2017 1:38 PM MANAGER BABY Respiratory Rate 18 06/17/2017 6:15 PM MANAGER BABY Oxygen Saturation 98% 06/17/2017 6:15 PM MANAGER BABY Inhaled Oxygen Concentration - - Weight 108.9 kg (240 lb) 06/17/2017 1:38 PM MANAGER BABY Height 162.6 cm (5' 4 ) 06/17/2017 1:38 PM MANAGER BABY Body Mass Index 41.2 06/17/2017 1:38 PM MANAGER BABY Plan of Treatment Not on file Care Teams Fruit Sprayer Relationship Specialty Start Date End Date Siddhartha Jhaveri MD [address] [place] [address] [address] [place] [address] PCP - General Internal Medicine 06/17/17
--- OUTSIDE RECORDS SUMMARY | 2024-07-05 15:29 | XMS_ITS ---
Author Organization [facility] Address [address] [place] [address] Phone Care Team Providers Care Dowel Pin Man Name Role Phone RAMEZ CONSTANTINO MD Unavailable [phone] Problems Includes: Active, inactive, and resolved Problems All Visits Onset Date Resolved Date Provider Condition S tatus Alcohol Use 07/08/2017 Unknown RAMEZ CONSTANTINO MD Resolved Last Documented On 07/23/2018 11:26AM ; [facility] Note: was Closed. Exposure To Contagious Viral Disease 07/08/2017 Unknown RAMEZ CONSTANTINO MD Resolved Last Documented On 07/23/2018 11:26AM ; [facility] Note: was Closed. History of Breast Disorders 07/08/2017 Unknown RAMEZ CONSTANTINO MD Resolved Last Documented On 07/23/2018 11:26AM ; [facility] Note: was Closed. History of Depression 07/08/2017 Unknown RAMEZ CONSTANTINO MD Resolved Last Documented On 07/23/2018 11:26AM ; [facility] Note: was Closed. History of Diabetes Mellitus 07/08/2017 Unknown RAMEZ CONSTANTINO MD Resolved Last Documented On 07/23/2018 11:26AM ; [facility] Note: was Closed. History of Essential Hypertension 07/08/2017 Unknown RAMEZ CONSTANTINO MD Resolved Last Documented On 07/23/2018 11:26AM ; [facility] Note: was Closed. History of Thromboembolic Disease 07/08/2017 Unknown RAMEZ CONSTANTINO MD Resolved Last Documented On 07/23/2018 11:26AM ; [facility] Note: was Closed. History of Thyroid Disorders 07/08/2017 Unknown RAMEZ CONSTANTINO MD Resolved Last Documented On 07/23/2018 11:26AM ; [facility] Note: was Closed. Medical History Infections 07/08/2017 Unknown RAMEZ CONSTANTINO MD Resolved Last Documented On 07/23/2018 11:26AM ; [facility] Note: was Closed. Reported Family History of Genetic Disease 07/08/2017 Unknown RAMEZ CONSTANTINO MD Resolved Last Documented On 07/23/2018 11:26AM ; [facility] Note: was Closed. Respiratory Disorders 07/08/2017 Unknown RAMEZ CONSTANTINO MD Resolved Last Documented On 07/23/2018 11:26AM ; [facility] Note: was Closed. Smoking During 07/08/2017 Unknown RAMEZ CONSTANTINO MD Resolved Last Documented On 07/23/2018 11:26AM ; [facility] Note: was Closed. Tobacco Use 07/08/2017 Unknown RAMEZ CONSTANTINO MD Resolved Last Documented On 07/23/2018 11:26AM ; [facility] Note: was Closed. Exposure To Herpes Simplex 07/08/2017 Unknown RAMEZ CONSTATNINO MD Resolved Last Documented On 07/23/2018 11:26AM ; [facility] Note: was Closed. Hypertension Systemic 02/01/2017 SHAILESH DUMONT WHNP-BC Active Last Documented On 7 9:39AM ; [facility] Risk: Tobacco Use 01/24/2016 SHAILESH DUMONT WHNP -BC Active Last Documented On 6 2:51PM ; [facility] Alcohol Use 01/27/2015 Unknown RAMEZ CONSTANTINO MD Resolv ed Last Documented On 09/06/2015 2:11PM ; [facility] Note: was Closed. Smoking During 01/27/2015 Unknown RAMEZ FITZPATRICK MD Resolved Last Documented On 09/06/2015 2:11PM ; [facility] Note: was Closed. Tobacco Use 01/27/2015 Unknown AUDRA GARNER MD Resolve d Last Documented On 09/06/2015 2:11PM ; [facility] Note: was Closed. Exposure To Herpes Simplex 01/27/2015 Unknown AUDRA GARNER MD Resolved Last Documented On 09/06/2015 2:11PM ; [facility] Note: was Closed. Maternal Tobacco Use Complicating Preg / / Puerperium 12/30/2014 Unknown SHAILESH DUMONT WHNP-BC Resolved Last Documented On 6 2:51PM ; [facility] Plan of Treatment Findings Encounter Date Ordered Clinical summary pro vided to patient WELL WOMAN EXAM with SHAILESH DUMONT WHNP-BC 02/25/2020 Last Documented On 0 3:46PM ; [facility] Ordered Clinical summary pro vided to patient MISSED MENSES with SHAILESH DUMONT WHNP-BC 05/31/2017 Last Documented On 8 3:18PM ; [facility] Ordered Clinical summary pro vided to patient INSECTICIDE SPRAYER EXAM with SHAILESH DUMONT WHNP-BC 02/01/2017 Last Documented On 7 9:50AM ; [facility] Ordered Clinical summary pro vided to patient INSECTICIDE SPRAYER EXAM with SHAILESH DUMONT WHNP-BC 01/24/2016 Last Documented On 6 3:09PM ; [facility] Ordered Clinical summary pro vided to patient RETURN OB EXAM with SHAILESH DUMONT WHNP-BC 06/30/2015 Last Documented On 6 4:14PM ; [facility] Ordered Clinical summary pro vided to patient RETURN OB EXAM with SHAILESH DUMONT WHNP-BC 06/06/2015 Last Documented On 6 9:30AM ; [facility] Ordered Clinical summary pro vided to patient RETURN OB EXAM with SHAILESH DUMONT WHNP-BC 04/27/2015 Last Documented On 5 3:21PM ; [facility] Ordered Clinical summary pro vided to patient RETURN OB EXAM with SHAILESH DUMONT WHNP-BC 03/02/2015 Last Documented On 5 9:18AM ; [facility] Ordered Clinical summary pro vided to patient MISSED MENSES with SHAILESH DUMONT WHNP-BC 12/30/2014 Last Documented On 5 10:58AM ; [facility] Ordered Clinical summary pro vided to patient INSECTICIDE SPRAYER EXAM with SHAILESH DUMONT WHNP-BC 02/09/2013 Last Documented On 3 10:03AM ; [facility] Ordered follow-up visit 1 ye ar or as needed INSECTICIDE SPRAYER EXAM with SHAILESH DUMONT WHNP-BC 03/30/2010 Last Documented On 0 9:15AM ; [facility] Instructions to patient Instructions for patient : B reast Self Exam discussed Last Documented On 0 3:20PM ; [facility] Lose weight Last Documented On 0 3:20PM ; [facility] Instructions for patient : B reast Self Exam discussed Last Documented On 7 9:33AM ; [facility] Instructions for patient : K eep the area around the vulva dry. Allow the area to have exposure to air. Avoid irritants such as fabric softeners and perfumed soaps.~ Last Documented On 7 9:48AM ; [facility] Lose weight Last Documented On 7 9:33AM ; [facility] Advised d/c scented bath pro ducts Last Documented On 7 9:48AM ; [facility] Instructions for patient : B reast Self Exam discussed Last Documented On 6 2:50PM ; [facility] Lose weight Last Documented On 6 2:50PM ; [facility] Gard[place] information given a nd series encouraged Last Documented On 6 2:51PM ; [facility] Safe sex counseling Last Documented On 6 2:50PM ; [facility] Instructions for patient : B reast Self Exam discussed Last Documented On 3 9:38AM ; [facility] Lose weight Last Documented On 3 9:39AM ; [facility] [place] information given a nd series encouraged Last Documented On 3 9:39AM ; [facility] Safe sex counseling Last Documented On 3 9:39AM ; [facility] Instructions for patient : B reast Self Exam discussed Last Documented On 1 9:55AM ; [facility] Lose weight Last Documented On 1 10:24AM ; [facility] [place] information given a nd series encouraged Last Documented On 1 9:56AM ; [facility] Safe sex counseling Last Documented On 1 9:56AM ; [facility] Instructions for patient : B reast Self Exam discussed Last Documented On 0 8:58AM ; [facility] Lose weight Last Documented On 0 9:11AM ; [facility] [place] information given a nd series encouraged Last Documented On 0 9:12AM ; [facility] Safe sex counseling Last Documented On 0 9:11AM ; [facility] Education and Decision Aids were provided during visit for: Patient Education: Daily shima cium and vitamin D Last Documented On 0 3:20PM ; [facility] Patient Education: weight be aring exercise Last Documented On 0 3:20PM ; [facility] Smoking cessation advised Last Documented On 0 3:46PM ; [facility] Smoking cessation advised Last Documented On 8 2:46PM ; [facility] New OB form given to patient SAB precautions reviewed and pnv samples given. Advised H1N1 and seasonal flu vaccine. Already done prior to ! Last Documented On 8 3:16PM ; [facility] Patient Education: Daily shima cium and vitamin D Last Documented On 7 9:33AM ; [facility] Patient Education: weight be aring exercise Last Documented On 7 9:33AM ; [facility] Smoking cessation advised Last Documented On 7 9:33AM ; [facility] Candidiasis Vulvovaginitis I nformation Sheet Given Last Documented On 7 9:48AM ; [facility] Patient Education: Daily shima cium and vitamin D Last Documented On 6 2:50PM ; [facility] Patient Education: weight be aring exercise Last Documented On 6 2:50PM ; [facility] Smoking cessation advised Last Documented On 6 2:51PM ; [facility] control consent review ed and signed Last Documented On 6 2:50PM ; [facility] Smoking cessation advised Last Documented On 5 10:44AM ; [facility] New OB form given to patient SAB precautions reviewed and pnv samples given. Advised H1N1 and seasonal flu vaccine Last Documented On 5 10:39AM ; [facility] Patient Education: Daily shima cium and vitamin D Last Documented On 3 9:38AM ; [facility] Patient Education: weight be aring exercise Last Documented On 3 9:38AM ; [facility] control consent review ed and signed Last Documented On 3 9:39AM ; [facility] Patient Education: Daily shima cium and vitamin D Last Documented On 1 9:55AM ; [facility] Patient Education: weight be aring exercise Last Documented On 1 9:55AM ; [facility] control consent review ed and signed done at previous visit Last Documented On 1 9:56AM ; [facility] Patient Education: Daily shima cium and vitamin D Last Documented On 0 9:11AM ; [facility] Patient Education: weight be aring exercise Last Documented On 0 9:11AM ; [facility] Assessments Includes: Assessments for all patient encounters Findings Encounter Date NORMAL FEMALE EXAM WELL WOMAN EXAM with SHAILESH DUMONT [facility] 02/25/2020 Last Documented On 0 3:46PM ; [facility] Amenorrhea MISSED MENSES with SHAILESH DUMONT NP-BC 05/31/2017 Last Documented On 8 3:18PM ; [facility] Abbi albicans vulvovaginitis INSECTICIDE SPRAYER EXAM with MARIPOSA DUMONT NP-BC 02/01/2017 Last Documented On 7 9:50AM ; [facility] NORMAL FEMALE EXAM INSECTICIDE SPRAYER EXAM with SHAILESH Marr P-BC 02/01/2017 Last Documented On 7 9:50AM ; [facility] NORMAL FEMALE EXAM INSECTICIDE SPRAYER EXAM with SHAILESH Marr HNP-BC 01/24/2016 Last Documented On 6 3:09PM ; [facility] Normal checkup (6 - 42 wk) * PHONE CALL with AUDRA GARNER MD 07/19/2015 Last Documented On 6 4:32PM ; [facility] Normal checkup (6 - 42 wk) RETURN OB EX AM with AUDRA GARNER MD 07/14/2015 Last Documented On 6 8:44AM ; [facility] Normal checkup (6 - 42 wk) RETU RN OB EXAM with SHAILESH PAPPAS 06/30/2015 Last Documented On 6 4:14PM ; [facility] Normal checkup (6 - 42 wk) * PHONE CALL with AUDRA GARNER MD 06/27/2015 Last Documented On 6 12:52PM ; [facility] Normal checkup (6 - 42 wk) RETURN OB EX AM with AUDRA GARNER MD 06/14/2015 Last Documented On 6 12:55PM ; [facility] Normal checkup (6 - 42 wk) RETU RN OB EXAM with SHAILESH PAPPAS 06/06/2015 Last Documented On 6 9:30AM ; [facility] Normal checkup (6 - 42 wk) RETURN OB EX AM with AUDRA GARNER MD 05/24/2015 Last Documented On 5 8:48AM ; [facility] Normal checkup (6 - 42 wk) * PH ONE CALL with SHAILESH PAPPAS 05/11/2015 Last Documented On 5 8:43AM ; [facility] Normal checkup (6 - 42 wk) * PHONE CALL with AUDRA GARNER MD 05/10/2015 Last Documented On 5 10:15AM ; [facility] Normal checkup (6 - 42 wk) RETU RN OB EXAM with SHAILESH PAPPAS 04/27/2015 Last Documented On 5 3:21PM ; [facility] Normal checkup (6 - 42 wk) * PHONE CALL with AUDRA GARNER MD 04/01/2015 Last Documented On 5 10:37AM ; [facility] Normal checkup (6 - 42 wk) RETURN OB EX AM with AUDRA GARNER MD 03/29/2015 Last Documented On 5 9:49AM ; [facility] Normal checkup (6 - 42 wk) * PHONE CALL with AUDRA GARNER MD 03/11/2015 Last Documented On 5 1:40PM ; [facility] Normal checkup (6 - 42 wk) RETU RN OB EXAM with SHAILESH DUMONT [facility]- 03/02/2015 Last Documented On 5 9:18AM ; [facility] Normal checkup (6 - 42 wk) NEW OB EXAM with AUDRA GARNER MD 01/27/2015 Last Documented On 5 10:08AM ; [facility] Amenorrhea 9 6/7 weeks by LM P with EDC 07/30/2015 MISSED MENSES with SHAILESH DUMONT [facility] 12/30/2014 Last Documented On 5 10:58AM ; [facility] NORMAL FEMALE EXAM INSECTICIDE SPRAYER EXAM with SHAILESH Marr [facility]-BC 02/09/2013 Last Documented On 3 10:03AM ; [facility] NORMAL FEMALE EXAM INSECTICIDE SPRAYER EXAM with SHAILESH Marr [facility]-BC 04/18/2011 Last Documented On 1 10:25AM ; [facility] Normal routine history and physical INSECTICIDE SPRAYER EXAM wit h SHAILESH DUMONT [facility]- 03/30/2010 Last Documented On 0 9:15AM ; [facility] Instructions Includes: Instructions for all patient encounters Instructions to patient Instructions for patient : B reast Self Exam discussed Last Documented On 0 3:20PM ; [facility] Lose weight Last Documented On 0 3:20PM ; [facility] Instructions for patient : B reast Self Exam discussed Last Documented On 7 9:33AM ; [facility] Instructions for patient : K eep the area around the vulva dry. Allow the area to have exposure to air. Avoid irritants such as fabric softeners and perfumed soaps.~ Last Documented On 7 9:48AM ; [facility] Lose weight Last Documented On 7 9:33AM ; [facility] Advised d/c scented bath pro ducts Last Documented On 7 9:48AM ; [facility] Instructions for patient : B reast Self Exam discussed Last Documented On 6 2:50PM ; [facility] Lose weight Last Documented On 6 2:50PM ; [facility] [place] information given a nd series encouraged Last Documented On 6 2:51PM ; [facility] Safe sex counseling Last Documented On 6 2:50PM ; [facility] Instructions for patient : B reast Self Exam discussed Last Documented On 3 9:38AM ; [facility] Lose weight Last Documented On 3 9:39AM ; [facility] [place] information given a nd series encouraged Last Documented On 3 9:39AM ; [facility] Safe sex counseling Last Documented On 3 9:39AM ; [facility] Instructions for patient : B reast Self Exam discussed Last Documented On 1 9:55AM ; [facility] Lose weight Last Documented On 1 10:24AM ; [facility] [place] information given a nd series encouraged Last Documented On 1 9:56AM ; [facility] Safe sex counseling Last Documented On 1 9:56AM ; [facility] Instructions for patient : B reast Self Exam discussed Last Documented On 0 8:58AM ; [facility] Lose weight Last Documented On 0 9:11AM ; [facility] [place] information given a nd series encouraged Last Documented On 0 9:12AM ; [facility] Safe sex counseling Last Documented On 0 9:11AM ; [facility] Education and Decision Aids were provided during visit for: Patient Education: Daily shima cium and vitamin D Last Documented On 0 3:20PM ; [facility] Patient Education: weight be aring exercise Last Documented On 0 3:20PM ; [facility] Smoking cessation advised Last Documented On 0 3:46PM ; [facility] Smoking cessation advised Last Documented On 8 2:46PM ; [facility] New OB form given to patient SAB precautions reviewed and pnv samples given. Advised H1N1 and seasonal flu vaccine. Already done prior to ! Last Documented On 8 3:16PM ; [facility] Patient Education: Daily shima cium and vitamin D Last Documented On 7 9:33AM ; [facility] Patient Education: weight be aring exercise Last Documented On 7 9:33AM ; [facility] Smoking cessation advised Last Documented On 7 9:33AM ; [facility] Candidiasis Vulvovaginitis I nformation Sheet Given Last Documented On 7 9:48AM ; [facility] Patient Education: Daily shima cium and vitamin D Last Documented On 6 2:50PM ; [facility] Patient Education: weight be aring exercise Last Documented On 6 2:50PM ; [facility] Smoking cessation advised Last Documented On 6 2:51PM ; [facility] control consent review ed and signed Last Documented On 6 2:50PM ; [facility] Smoking cessation advised Last Documented On 5 10:44AM ; [facility] New OB form given to patient SAB precautions reviewed and pnv samples given. Advised H1N1 and seasonal flu vaccine Last Documented On 5 10:39AM ; [facility] Patient Education: Daily shima cium and vitamin D Last Documented On 3 9:38AM ; [facility] Patient Education: weight be aring exercise Last Documented On 3 9:38AM ; [facility] control consent review ed and signed Last Documented On 3 9:39AM ; [facility] Patient Education: Daily shima cium and vitamin D Last Documented On 1 9:55AM ; [facility] Patient Education: weight be aring exercise Last Documented On 1 9:55AM ; [facility] control consent review ed and signed done at previous visit Last Documented On 1 9:56AM ; [facility] Patient Education: Daily shima cium and vitamin D Last Documented On 0 9:11AM ; [facility] Patient Education: weight be aring exercise Last Documented On 0 9:11AM ; [facility] Medical Equipment - Implanted Devices Includes: Current and historical Devices No Medical Equipment Recorded Medications Includes: Current and historical Medications Current Medications (continue as prescribed) Escitalopram Oxalate 5MG Oral Tablet 07/08/2017 Prov ider: Diagnosis: Last Documented On 8 4:11PM By GRACIELA OLEA ; [facility] Albuterol Sulfate (2.5 MG/3ML) 0.083% Nebulizati on solution 08/01/2015 Provider: Diagnosis: Last Documented On 08/01/2015 2:59PM By MARQUES HDEZ CMA ; [facility] Past Medications on file Procardia XL 30MG Oral Table t Extended Release 24 Hour 08/29/2017 - 11/27/2017 Provider: SHAILESH MIRANDA [facility] Diagnosis: One tablet daily Last Documented On 8 3:53PM By [facility] ; [facility] Ampicillin 500MG Oral Capsule 07/12/2017 - 02/25/2020 Provider: RAMEZ CONSTANTINO MD Diagnosis: Sig: one capsule 4 x a day till gone Last Documented On 0 3:28PM By MARIANNA MOELLER HEAD CHEF ; [facility] Terazol 7 0.4% Vaginal Cream 06/24/2017 - 07/24/2017 P rovider: SHAILESH DUMONT [facility] Diagnosis: as directed - insert one jasmin licator full pv q hs x 7 nocs Last Documented On 8 9:51AM By SHAILESH DUMONT [facility] ; [facility] Procardia XL 30MG Oral Table t Extended Release 24 Hour 05/31/2017 - 08/29/2017 Provider: SHAILESH MIRANDA [facility] Diagnosis: One tablet daily Last Documented On 8 3:51PM By SHAILESH DUMONT TOLU ; [facility] Losartan Potassium 100MG Oral Tablet 05/31/2017 - 09/2017 Provider: Diagnosis: Last Documented On 8 3:16PM By SHAILESH DUMONT [facility] ; [facility] Escitalopram Oxalate 10MG Oral Tablet 05/31/2017 - 04/2018 Provider: Diagnosis: Last Documented On 8 4:11PM By GRACIELA OLEA ; [facility] Adult Aspirin EC Low Strengt h 81MG Oral Tablet Delayed Release 05/31/2017 - 02/25/2020 Provider: Diagnosis: Last Documented On 0 3:28PM By MARIANNA MOELLER LPN ; [facility] Diflucan 150MG Oral Tablet 02/01/2017 - 05/31/2017 Pro vider: SHAILESH DUMONT [facility] Diagnosis: as directed - one po x 1 dos e and rpt. in 3 days as needed Last Documented On 8 2:45PM By SHAILESH DUMONT [facility] ; [facility] Radha 0.35MG Oral Tablet 02/01/2017 - 05/31/2017 Provi alba: SHAILESH DUMONT NP-BC Diagnosis: One tablet daily Last Documented On 8 2:45PM By SHAILESH DUMONT [facility] ; [facility] Lo Loestrin Fe 1 MG-10 MCG / 10 MCG Tablet 01/24/2016 - 02/01/2017 Provider: SHAILESHSHARMAINE NASSAR [employer]LLIGENCE OPERATOR-BC Diagnosis: One tablet daily Last Documented On 7 9:48AM By SHAILESH DUMONT [facility] ; [facility] Angie 0.35 MG Tablet 12/27/2015 - 01/24/2016 Provider : AUDRA GARNER MD Diagnosis: One tablet daily Last Documented On 12/27/2015 3:23PM By AUDRA GARNER MD ; [facility] Angie 0.35 MG Tablet 09/08/2015 - 12/27/2015 Provider : AUDRA GARNER MD Diagnosis: One tablet daily Last Documented On 12/27/2015 3:22PM By AUDRA GARNER MD ; [facility] NIFEdipine ER 30 MG Tablet, extended-release 24 hour 08/09/2015 - 09/23/2015 Provider: AUDRA MOISE MD Diagnosis: ii po daily at same time Last Documented On 08/09/2015 3:19PM By AUDRA GARNER MD ; [facility] Angie 0.35 MG Tablet 08/09/2015 - 09/08/2015 Provider : AUDRA GARNER MD Diagnosis: One tablet daily Last Documented On 09/08/2015 11:35AM By AUDRA GARNER MD ; [facility] NIFEdipine ER Osmotic Releas e 90 MG Tablet, extended-release 24 hour 08/09/2015 - 08/23/2015 Provider: Diagnosis: Last Documented On 6 10:39AM By RYAN OLEA ; [facility] Cephalexin 500 MG Tablet 08/05/2015 - 08/15/2015 Provi alba: AUDRA GARNER MD Diagnosis: One tablet four times a day Last Documented On 08/05/2015 11:27AM By AUDRA GARNER MD ; [facility] Potassium Chloride 20 MEQ/100ML Solution 08/01/2015 - 08/23/2015 Provider: Diagnosis: Last Documented On 6 10:41AM By RYAN OLEA ; [facility] Docusate Sodium 100 MG Capsule, conventional 6 - 08/23/2015 Provider: Diagnosis: Last Documented On 6 10:41AM By RYAN OLEA ; [facility] Oxycodone-Acetaminophen 5-325 MG Tablet 08/01/2015 - 0 08/23/2015 Provider: Diagnosis: Last Documented On 6 10:40AM By RYAN OLEA ; [facility] Hydrocodone-Acetaminophen 5- 325 MG Tablet 08/01/2015 - 08/04/2015 Provider: AUDRA GARNER MD Diagnosis: 1-2 every 4-6 hours as needed Last Documented On 08/01/2015 3:00PM By AUDRA GARNER MD ; [facility] Ibuprofen 600 MG Tablet 07/20/2015 - 05/31/2017 Provid er: Diagnosis: Last Documented On 8 2:45PM By SHAILESH DUMONT [facility] ; [facility] Chlorthalidone 25 MG Tablet 07/20/2015 - 08/09/2015 Pr ovider: Diagnosis: Last Documented On 08/09/2015 3:05PM By MARQUES HDEZ CMA ; [facility] NIFEdipine ER 60 MG Tablet, extended-release 24 hour 07/20/2015 - 08/09/2015 Provider: Diagnosis: Last Documented On 08/09/2015 3:05PM By MARQUES HDEZ CMA ; [facility] Breast Pump Miscellaneous 07/19/2015 - 07/18/2016 Provider: AUDRA GARNER MD Diagnosis: Encounter for ca re and examination of lactating mother as directed Last Documented On 07/19/2015 4:31PM By AUDRA GARNER MD ; [facility] ValACYclovir HCl 1 GM Tablet 07/14/2015 - 09/12/2015 P rovider: AUDRA GARNER MD Diagnosis: One tablet daily Last Documented On 07/14/2015 8:43AM By AUDRA GARNER MD ; [facility] Macrodantin 100 MG Capsule, conventional 05/10/2015 - 08/01/2015 Provider: Diagnosis: telephoned in Last Documented On 08/01/2015 2:43PM By RYAN OLEA ; [facility] 19 Tablet 03/29/2015 - 08/01/2015 Provider: AUDRA GARNER MD Diagnosis: One tablet daily Last Documented On 08/01/2015 2:43PM By RYAN OLEA ; [facility] Triveen-Duo DHA 29-1-200 & 4 00 MG Miscellaneous 01/27/2015 - 10/24/2015 Provider: AUDRA GARNER MD Diagnosis: One tablet daily Last Documented On 01/27/2015 10:08AM By AUDRA GARNER MD ; [facility] CVS 28-0.8 MG Tablet 12/30/2014 - 08/23/2015 Provider: Diagnosis: Last Documented On 6 10:40AM By RYAN OLEA ; [facility] Macrobid 100 MG Capsule 12/15/2014 - 12/30/2014 Provid er: Diagnosis: po bid 7 days telephoned in Last Documented On 5 10:47AM By TATIANA JARRETT Callie ; [facility] Bactrim DS 800-160 MG OR TABS 05/16/2011 - 05/19/2011 Provider: SHAILESH PAPPAS Diagnosis: Last Documented On 1 11:57AM By SHAILESH PAPPAS ; [facility] traMADol HCl ER 100 MG OR TB24 04/18/2011 - 12/30/2014 Provider: Diagnosis: Last Documented On 5 10:40AM By SHAILESH PAPPAS ; [facility] [place] 3-0.02 MG OR TABS 04/18/2011 - 04/12/2012 Provider : SHAILESH PAPPAS Diagnosis: Last Documented On 1 10:25AM By SHAILESH PAPPAS ; [facility] [place] 3-0.02 MG OR TABS 01/25/2011 - 04/18/2011 Provider : SHAILESH PAPPAS Diagnosis: Last Documented On 1 10:25AM By SHAILESH PAPPAS ; [facility] [place] 3-0.02 MG OR TABS 03/30/2010 - 01/25/2011 Provider : SHAILESH PAPPAS Diagnosis: Last Documented On 1 3:58PM By SHAILESH PAPPAS ; [facility] [place] 3-0.02 MG OR TABS 01/25/2010 - 03/30/2010 Provider : SHAILESH PAPPAS Diagnosis: Last Documented On 0 9:12AM By SHAILESH PAPPAS ; [facility] Bactrim DS 800-160 MG OR TABS 08/17/2009 - 08/20/2009 Provider: SHAILESH PAPPAS Diagnosis: Last Documented On 0 3:26PM By SHAILESH PAPPAS ; [facility] Bactrim DS 800-160 MG OR TABS 05/02/2009 - 05/05/2009 Provider: Diagnosis: Last Documented On 06/14/2009 12:23PM By CARMENCITA AVERY ; [facility] [place] 3-0.02 MG OR TABS 02/09/2009 - 02/04/2010 Provider : Diagnosis: Last Documented On 06/14/2009 12:24PM By CARMENCITA AVERY ; [facility] Medications Administered Includes: Administered Medications in patient's chart Medications Administered Diagnosis Date Pro vider Fluzone Preservative Free 0.5 ML IM SIMON Encounter for immunization 04/27/2015 SHAILESH PAPPAS Last Documented On 5 3:12PM By TATIANA OLEA ; [facility] Results Includes: Results from 07/05/2023 through 07/05/2024 No Results Recorded For Specified Dates History of Present Illness History of Present Illness not supported for this document type No History of Present Illness Recorded Social History Description Last Updated Sexually active with 1 partners in the l ast year 02/25/2020 Last Documented On 0 3:46PM ; [facility] Smoking Status Unknown Procedures and Surgical History Surgical History Last Updated History of tubal ligation 02/25/2020 Last Documented On 0 3:46PM ; [facility] History of cholecystectomy 02/25/2020 Last Documented On 0 3:46PM ; [facility] History of surgery gallbladder removal 1 Last Documented On 0 3:46PM ; [facility] Surgical / procedural history c/s 2019 Last Documented On 0 3:46PM ; [facility] Medical History Includes: Medical History in patient's chart Description Last Updated Para 2 02/25/2020 Last Documented On 0 3:46PM ; [facility] Sexually active 02/25/2020 Last Documented On 0 3:46PM ; [facility] LMP: 02/18/2020 02/25/2020 Last Documented On 0 3:46PM ; [facility] 2 02/25/2020 Last Documented On 0 3:46PM ; [facility] History of asthma 02/25/2020 Last Documented On 0 3:46PM ; [facility] History of benign essential hypertension 02/25/2020 Last Documented On 0 3:46PM ; [facility] History of breast disorders FOB [place] [facility] [place] cancer 02/25/2020 Last Documented On 0 3:46PM ; [facility] History of depression MOB an d FOB and both families: pt previously on meds at 22 y old x 2 yrs: unsure of med; no meds in last preg; no post depression; 02/25/2020 Last Documented On 0 3:46PM ; [facility] Family History Includes: Family History in patient's chart Description Last Updated Spouse name: Greta 05/31/2017 Last Documented On 8 3:18PM ; [facility] Review of Systems Review of [...] (SD) 1 04/27/2015 Left Arm Complete (Administered) [facility] Last Documented On 5 3:12PM ; [facility] Allergies Includes: Active, inactive, and resolved Allergies No Known Allergies Insurance Includes: Active Insurance Policies Plan Name Member ID Group # Subscriber Relationship Effect beatris Dates 1 - [facility] [id number] AJAY QUINTERO Se lf Clinical Notes Includes: Signed Clinical Notes starting from 06/15/2022 No Clinical Notes Recorded
--- OUTSIDE RECORDS SUMMARY | 2024-07-05 15:29 | XMS_ITS | Clinical Summary ---
Author Organization [facility] Address [address] [place] [address] Phone Care Team Providers Care Government Minister Name Role Phone RAMEZ CONSTANTINO MD Unavailable [phone] Reason for Visit and Chief Complaint * PHONE CALL Problems Includes: Problems addressed during this encounter and other active Problems All Visits Onset Date Resolved Date Provider Condition S tatus Alcohol Use 07/08/2017 Unknown RAMEZ CONSTANTINO MD Resolved Last Documented On 07/23/2018 11:26AM ; [facility] Note: was Closed. Exposure To Contagious Viral Disease 07/08/2017 Unknown RAMEZ CONSTANTINO MD Resolved Last Documented On 07/23/2018 11:26AM ; [facility] Note: was Closed. History of Breast Disorders 07/08/2017 Unknown RAMEZ CONSTANTINO MD Resolved Last Documented On 07/23/2018 11:26AM ; [facility] Note: was Closed. History of Depression 07/08/2017 Unknown RAMEZ CONSTANTINO MD Resolved Last Documented On 07/23/2018 11:26AM ; [facility] Note: was Closed. History of Diabetes Mellitus 07/08/2017 Unknown RAMEZ CONSTANTINO MD Resolved Last Documented On 07/23/2018 11:26AM ; [facility] Note: was Closed. History of Essential Hypertension 07/08/2017 Unknown RAMEZ CONSTANTINO MD Resolved Last Documented On 07/23/2018 11:26AM ; [facility] Note: was Closed. History of Thromboembolic Disease 07/08/2017 Unknown RAMEZ CONSTANTINO MD Resolved Last Documented On 07/23/2018 11:26AM ; [facility] Note: was Closed. History of Thyroid Disorders 07/08/2017 Unknown RAMEZ CONSTANTINO MD Resolved Last Documented On 07/23/2018 11:26AM ; [facility] Note: was Closed. Medical History Infections 07/08/2017 Unknown RAMEZ CONSTANTINO MD Resolved Last Documented On 07/23/2018 11:26AM ; [facility] Note: was Closed. Reported Family History of Genetic Disease 07/08/2017 Unknown RAMEZ CONSTANTINO MD Resolved Last Documented On 07/23/2018 11:26AM ; [facility] Note: was Closed. Respiratory Disorders 07/08/2017 Unknown RAMEZ CONSTANTINO MD Resolved Last Documented On 07/23/2018 11:26AM ; [facility] Note: was Closed. Smoking During 07/08/2017 Unknown RAMEZ CONSTANTINO MD Resolved Last Documented On 07/23/2018 11:26AM ; [facility] Note: was Closed. Tobacco Use 07/08/2017 Unknown RAMEZ CONSTANTINO MD Resolved Last Documented On 07/23/2018 11:26AM ; [facility] Note: was Closed. Exposure To Herpes Simplex 07/08/2017 Unknown RAMEZ CONSTANTINO MD Resolved Last Documented On 07/23/2018 11:26AM ; [facility] Note: was Closed. Hypertension Systemic 02/01/2017 SHAILESH DUMONT WHNP-BC Active Last Documented On 7 9:39AM ; [facility] Risk: Tobacco Use 01/24/2016 SHAILESH DUMONT WHNP -BC Active Last Documented On 6 2:51PM ; [facility] Alcohol Use 01/27/2015 Unknown RAMEZ CONSTANTINO MD Resol ed Last Documented On 09/06/2015 2:11PM ; [facility] Note: was Closed. Smoking During 01/27/2015 Unknown RAMEZ FITZPATRICK MD Resolved Last Documented On 09/06/2015 2:11PM ; [facility] Note: was Closed. Plan of Treatment No Plan of Treatment Recorded Assessments Includes: Assessments from this encounter No Assessments Recorded Medical Equipment - Implanted Devices Includes: Current Devices No Medical Equipment Recorded Medications Includes: Medications discussed during this encounter and other current Medications Current Medications (continue as prescribed) Escitalopram Oxalate 5MG Oral Tablet 07/08/2017 Prov ider: Diagnosis: Last Documented On 8 4:11PM By GRACIELA OLEA ; [facility] Albuterol Sulfate (2.5 MG/3ML) 0.083% Nebulizati on solution 08/01/2015 Provider: Diagnosis: Last Documented On 08/01/2015 2:59PM By MARQUES HDEZ CMA ; [facility] Medications Administered Includes: [...] Diagnosis * PHONE CALL RAMEZ CONSTANTINO MD [facility] DELIVERER MERCHANDISE 8 9:32AM 11:59PM Insurance Includes: Active Insurance Policies Plan Name Member ID Group # Subscriber Relationship Effect beatris Dates 1 - [facility] [id number] AJAY QUINTERO Se lf Clinical Notes Includes: Clinical Notes from this encounter No Clinical Notes Recorded
[2024-07-05 15:40] VITALS: BP 127/88; PULSE 97; RESP 18; TEMP 37.2; O2SAT 100
== END 2024-07-05 15:45 | disposition home or self-care (01) ==
LOC: CHSED 15:26
PROVIDERS: Emergency Provider Family Medicine; PCP Internal Medicine
DX: N39.0 Urinary tract infection, site not specified (principal)
CPT/HCPCS: 81001; 99283; A9270

== ENCOUNTER 2024-11-16 07:57 | Emergency (ER) | payer BC, SELFPAY ==
[2024-11-16 07:57] VITALS: BP 140/92; PULSE 90; RESP 20; TEMP 36.6; O2SAT 98
--- NOTE | 2024-11-16 08:01 | ED.GENADULT ---
[facility] - General Adult General Chief complaint: Eye Problems Stated complaint: swelling left eye Source: patient Mode of arrival: ambulatory History of Present Illness [facility] narrative: patient presents with itching rash different parts of her body started days ago, this morning wake up with puffiness of the upper and lower eyelids mainly on the left side with watery eyes and itching Related Data Home Medications ?Medication ?Instructions ?Recorded ?Confirmed ?Last Taken ?Type bupropion HCl 300 mg 24 hr tablet, mg PO 07/05/24 Unknown History extended release buspirone 10 mg tablet mg 07/05/24 Unknown History metformin 500 mg tablet,extended mg PO 07/05/24 Unknown History release 24 hr metronidazole 500 mg tablet mg 07/05/24 Unknown History omeprazole 20 mg capsule,delayed mg 07/05/24 Unknown History release topiramate 50 mg tablet mg 07/05/24 Unknown History Allergies Allergy/AdvReac Type Severity Reaction Status Date / Time No Known Allergies Allergy Verified 11/16/24 07:58 Review of Systems Review of Systems: All systems reviewed & are unremarkable except as noted in HPI and below Exam Const: Other: General appearance: Well-developed, well-nourished Skin: scattered maculopapular rash Head: Normocephalic, nontraumatic Eyes: Clear conjunctiva, puffiness and roughness of the skin of the upper and lower eyelids on the left side ENT: Oropharynx normal, ears normal, nose normal Neck: Supple, nontender Chest and respiratory: Airway patent, no respiratory distress, no accessory muscle use Heart: Regular rate/rhythm A Neurologic: Alert and oriented ?3, Medical Decision Making [facility] Narrative Medical decision making narrative: differential diagnosis include contact dermatitis, allergic conjunctivitis, discharged on prednisone, Zyrtec and Pataday eye drops Critical Care Time Critical Care Time Critical Care Time: No Discharge Plan Discharge Clinical Impression: Allergic reaction, Allergic conjunctivitis Patient Disposition: Home Condition: Stable Instructions: How to Use Eye Drops (ED), General Allergic Reaction (ED) Additional Instructions: Return if symptoms are worsening , call your family physician for appointment, take Tylenol as as needed for aches and pain, continue home medications. Patient Language: Upper Sorbian Prescriptions: New prednisone 20 mg tablet 40 mg PO DAILY 5 Days Qty: 10 0RF olopatadine [Pataday Once Daily Relief] 0.2 % drops 1 drp EACH EYE DAILY Qty: 2.5 0RF Zyrtec 10 mg capsule 10 mg PO BID PRN (Reason: allergy symptoms) Qty: 10 0RF No Action metronidazole 500 mg tablet buspirone 10 mg tablet omeprazole 20 mg capsule,delayed release(DR/EC) metformin 500 mg tablet extended release 24 hr PO bupropion HCl 300 mg tablet extended release 24 hr PO topiramate 50 mg tablet Follow-up/Referrals: Emilio,Siddhartha Ledesma MD [Primary Care Provider] -
== END 2024-11-16 08:07 | disposition home or self-care (01) ==
LOC: CHSED 08:15
PROVIDERS: Emergency Provider Emergency Medicine; PCP Internal Medicine
DX: H10.12 Acute atopic conjunctivitis, left eye (principal)
CPT/HCPCS: 99283

== ENCOUNTER 2025-03-23 07:48 | Outpatient (CLI) | payer BC, SELFPAY ==
--- OUTSIDE RECORDS SUMMARY | 2024-03-27 10:30 | XMS_ITS | Encounter Summary ---
Author Organization [facility] Healthcare Address [address] [place] [address] Care Team Providers Care Leaf Sorter Name Role Phone Siddhartha Jhaveri MD Primary Care Provider Reason for Visit * Reason Comments Preventative Care cpe Encounter Details Date Type Department Care Team (Late st Contact Info) Description 03/27/2024 10:30 AM CDT Office Visit [facility] Primary Care at [address] [place] [address] Siddhartha Jhaveri MD [address] [place] [address] [address] [place] [address] Annual physical exam (Primary Dx); BMI 37.0-37.9, adult; Severe obesity (HCC); Anxious depression; Gastroesophageal reflux disease without esophagitis; Chronic cluster headache, not intractable; Moderate episode of recurrent major depressive disorder (HCC) Social History Tobacco Use Types Packs/Day Years Used Date Smoking Tobacco: Every Day Cigarettes Smokeless Tobacco: Never Comments:Smoking History Pac ks/day: 8 Cigarettes Alcohol Use Standard Drinks/Week Comments No 0 (1 standard drink = 0.6 oz pur e alcohol) AUDIT-C Answer Date Recorded Q1: How often do you have a drink containing alc ohol? Monthly or less 03/22/2023 Q2: How many drinks containi ng alcohol do you have on a typical day when you are drinking? 7 to 9 03/22/2023 Q3: How often do you have si x or more drinks on one occasion? Less than monthly 03/22/2023 PHQ-2 Answer Date Recorded PHQ-2 Total Score (If total score is 3 or more points, staff should administer the PHQ-9) 0 03/27/2024 Comments No Sex and Gender Information Value Date Recorded Sex Assigned at Not on file Legal Sex Female 12:32 AM SHOVE UP Gender Identity Not on file Sexual Orientation Not on file documented as of this encounter Last Filed Vital Signs Vital Sign Reading Time Taken Comments Blood Pressure 118/70 03/27/2024 10:35 AM CDT Pulse 86 03/27/2024 10:35 AM CDT Temperature 36.6 C (97.8 F) 03/27/2024 10:35 AM CDT Respiratory Rate 16 03/27/2024 10:35 AM CDT Oxygen Saturation 99% 03/27/2024 10:35 AM CDT Inhaled Oxygen Concentration - - Weight 93 kg (205 lb) 03/27/2024 10:35 AM CDT Height 157.5 cm (5' 2) 03/27/2024 10:35 AM CDT Body Mass Index 37.49 03/27/2024 10:35 AM CDT documented in this encounter Progress Notes * Siddhartha Jhaveri MD - 03/27/2024 10:30 AM CDT [facility] DATE: 1990 Vitals: 03/27/24 1035 BP: 118/70 BP Location: Left arm Patient Position: Sitting Pulse: 86 Resp: 16 Temp: 36.6 ??C (97.8 ??F) SpO2: 99% Weight: 93 kg (205 lb) Height: 157.5 cm (5' 2) Body mass index is 37.49 kg/m??. Chief Complaint Chief Complaint Patient presents with Preventative Care cpe HPI Millicent Solo is a 33 y.o. female presents today for her annual preventive exam and follow-up visit the patient is doing better with the headaches with the help of Topamax which I assume is partly to credit for the weight loss she was had this year even though she quit smoking this year her weightactually went down 10 more lb so we are both happy about that she did have preeclampsia with her 2 p regnancies and she was noticed that she was having spikes of blood pressure with stressful situations with the even some facial flushing noted pretty she says he was a lot of job stress from unhappy customers that she was to deal with overall she was doing okay she has a very sedentary job I believe she said she works from home and has good support from her employer We are treating her polycystic ovary syndrome with metformin with good tolerability Social History Tobacco Use Smoking status: Every Day Current packs/day: 1.00 Types: Cigarettes Smokeless tobacco: Never Tobacco comments: Smoking History Packs/day: 8 Cigarettes Substance and Sexual Activity Drug use: Yes Types: Marijuana Sexual activity: Yes Partners: Male Alcohol Use: Alcohol Misuse (03/22/2023) AUDIT-C Frequency of Alcohol Consumption: Monthly or less Average Number of Drinks: 7 to 9 Frequency of Binge Drinking: Less than monthly Active Ambulatory Problems Diagnosis Date Noted Essential hypertension, benign 02/05/2017 HSV infection 10/29/2017 Depression 02/20/2018 Laryngopharyngeal reflux (LPR) 07/19/2020 Vocal process granuloma 09/19/2020 Tobacco abuse 06/20/2021 Polycystic ovary syndrome Intractable headache 07/18/2022 COVID-19 07/18/2022 Diaphoresis 07/18/2022 Anxiety 07/30/2022 Marijuana user 07/30/2022 Severe obesity (HCC) 03/27/2024 Resolved Ambulatory Problems Diagnosis Date Noted Calculus of gallbladder 09/26/2015 Abnormal liver enzymes 10/11/2015 Low back pain 10/25/2011 BMI 37.0-37.9, adult 02/07/2017 Pansinusitis 02/07/2017 Pharyngitis 04/16/2017 Bilateral serous otitis media 04/16/2017 Chronic hypertension affecting 10/29/2017 Previous section complicating 10/29/2017 Tobacco smoking affecting , antepartum 10/29/2017 Single umbilical artery affecting management of mother, antepartum, single gestation 10/29/2017 Depression affecting 10/29/2017 Supervision of other high risk , antepartum 10/29/2017 Gestational diabetes mellitus, antepartum 10/29/2017 History of severe pre-eclampsia 09/03/2017 Previous delivery, antepartum 07/25/2017 UTI in 09/09/2017 Supervision of normal Viral gastroenteritis 12/05/2017 Supervision of high-risk , third trimester 12/05/2017 Difficulty of mother performing 12/31/2017 Paresthesia of hand, bilateral 10/09/2019 Carpal tunnel syndrome of left wrist Ganglion cyst of volar aspect of right wrist 03/04/2020 Carpal tunnel syndrome of right wrist 03/04/2020 Ganglion of right wrist 03/04/2020 Voice hoarseness 07/19/2020 Choking episode 07/19/2020 Past Medical History: Diagnosis Date Chronic bronchitis (HCC) Hypertension Polycystic ovarian disease Family History Problem Relation Age of Onset Other Mother Alive and well; Other Father Alive and well; Other Brother 22 Alive and well; Other Brother 26 Alive and well; No Known Allergies REVIEW OF SYSTEMS Review of Systems Constitutional: Positive for unexpected weight change. Negative for chills, diaphoresis, fatigue and fever. HENT: Negative for congestion, hearing loss, postnasal drip, sneezing, sore throat, tinnitus and trouble swallowing. Eyes: Negative for visual disturbance. Respiratory: Negative for cough, shortness of breath and wheezing. Cardiovascular: Negative for chest pain, palpitations and leg swelling. Gastrointestinal: Negative for abdominal pain, anal bleeding, blood in stool, constipation, diarrhea, nausea and vomiting. Endocrine: Negative for polydipsia, polyphagia and polyuria. Genitourinary: Negative for dysuria, frequency, hematuria and urgency. Nocturia negative Musculoskeletal: Negative for arthralgias, back pain, joint swelling and myalgias. Skin: Negative for rash. Allergic/Immunologic: Negative for environmental allergies and food allergies. Neurological: Positive for headaches. Negative for dizziness, tremors and syncope. Hematological: Negative for adenopathy. Does not bruise/bleed easily. Psychiatric/Behavioral: Positive for dysphoric mood. Negative for sleep disturbance. The patient isnervous/anxious. PHYSICAL EXAM Physical Exam Vitals and nursing note reviewed. Constitutional: Appearance: Normal appearance. She is well-developed and normal weight. Comments: Weight is down 10 lb from September of 2022 blood pressure was fine today HENT: Head: Normocephalic and atraumatic. Right Ear: Tympanic membrane and external ear normal. Left Ear: Tympanic membrane and external ear normal. Nose: Nose normal. Mouth/Throat: Mouth: Mucous membranes are moist. Eyes: Extraocular Movements: Extraocular movements intact. Conjunctiva/sclera: Conjunctivae normal. Pupils: Pupils are equal, round, and reactive to light. Cardiovascular: Rate and Rhythm: Normal rate and regular rhythm. Heart sounds: Normal heart sounds. Pulmonary: Breath sounds: Normal breath sounds. Abdominal: General: Bowel sounds are normal. Palpations: Abdomen is soft. Genitourinary: Comments: Epic Prelude Analyst exam overdue Musculoskeletal: General: Normal range of motion. Cervical back: Normal range of motion and neck supple. Skin: General: Skin is warm and dry. Comments: No suspicious skin lesions although she did want to show me a wart on her left lateral calf too small to worry about Neurological: Mental Status: She is alert and oriented to person, place, and time. Deep Tendon Reflexes: Reflexes are normal and symmetric. Psychiatric: Mood and Affect: Mood normal. Comments: Pleasant smiling good eye contact LAST LABS Lab Results Component Value Date WBC 12.1 (H) 01/10/2018 HGB 10.5 (L) 01/10/2018 HCT 31.0 (L) 01/10/2018 LABPLAT 277 01/10/2018 CHOL 134 04/18/2019 TRIG 185 (H) 04/18/2019 HDL 38 (L) 04/18/2019 ALT 34 (H) 04/18/2019 AST 20 04/18/2019 SODIUM 138 04/18/2019 POTASSIUM 4.5 04/18/2019 CHLORIDE 106 04/18/2019 CREATININE 0.81 03/14/2022 BUNSER 10 04/18/2019 CO2 24 04/18/2019 TSH 2.48 04/18/2019 INR 0.97 10/07/2015 ASSESSMENT AND PLAN Assessment/Plan Diagnoses and all orders for this visit: Annual physical exam (Primary) - Comprehensive metabolic panel; Future - Lipid panel; Future We need to get a Pap smear set up in otherwise she was in good shape does not want a flu or COVID up-to-date her lab looks to be due again as well I will call her with the results when she gets a BMI 37.0-37.9, adult She was still too heavy we need to lose more weight with low-fat low carb diet we will continue themetformin and Topamax she was quit smoking hopefully she can focus on her weight Severe obesity (HCC) Topamax and metformin should be on her side but increased exercise calorie carbohydrate restrictionencouraged Anxious depression She is already on BuSpar and bupropion we will continue both of those long-term she says she handles her stress okay but sometimes when her voice or acting out her blood pressure will spike and she will get flushed Gastroesophageal reflux disease without esophagitis Her reflux control is okay with omeprazole weight loss will help Chronic cluster headache, not intractable Doing much better with current dose of Topamax let us continue that long-term her periods seem to be okay she says she was 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 Patient offered no further complaints and was in agreement with plan of care. Patientwas advised regarding dosage, use, and side effects of any new medications. Patient was advised to f/u in office with any worsening or little to no improvement of symptoms. Patient was advised to follow-up regarding the results of testing ordered in office today and that they should hear from us regarding the results in 2-3 business days, discussed benefits of MyChart in regard to patient experience. The patient was given the opportunity to have all questions answered today and was in agreementwith the plan of care. This note is dictated and transcribed by with assistance from [employer]. Service Consultant variances may occur. Despite proofreading, typographical errors may occur. documented in this encounter Miscellaneous Notes * Addendum Note - Aria Whitley CLT - 03/27/2024 10:30 AM CDTAddended by: ARIA WHITLEY on: 03/22/2025 02:33 PM Modules accepted: Orders documented in this encounter Plan of Treatment Not on file documented as of this encounter Visit Diagnoses Diagnosis Annual physical exam- Primary Routine general medical examination at a health care facility BMI 37.0-37.9, adult Severe obesity (HCC) Morbid obesity Anxious depression Gastroesophageal reflux disease without esophagitis Esophageal reflux Chronic cluster headache, not intractable Moderate episode of recurrent major depressive disorder (HCC) documented in this encounter Discontinued Medications Medication Sig Discontinue Reason Start Date End Da te benzonatate (TESSALON) 200 mg capsuleIndications:Bronc hitis Take 1 capsule (200 mg total) by mouth 3 (three) times a day as needed for cough Therapy completed 10/19/2022 03/27/2024 azithromycin (ZITHROMAX) 250 mg tabletIndications:Bronch itis Take two tabs first day, then one tab daily x 4 days Therapy completed 10/19/2022 03/27/2024 documented as of this encounter Orders Lab Orders Without Results Count Last Ordered D ate First Ordered Date COMPREHENSIVE METABOLIC PANEL 1 03/27/2024 LIPID PANEL 1 03/27/2024 documented in this encounter Care Teams Leaf Sorter Relationship Specialty Start Date End Date Siddhartha Jhaveri MD PCP - General 10/14/17 documented as of this encounter
--- OUTSIDE RECORDS SUMMARY | 2025-03-23 07:56 | XMS_ITS | Clinical Summary ---
Author Organization [facility] Address [address] [place] [address] Care Team Providers Care [place] Support Worker Name Role Phone Siddhartha Jhaveri MD Primary [...] times a day 100 g 3 Active busPIRone (BUSPAR) 10 mg tablet TAKE 1 TABLET BY MOUTH THREE TIMES A DAY 300 tablet 1 4 Active buPROPion XL (WELLBUTRIN XL) 300 mg 24 hr tabletIndicatio ns:Anxiety with Depression TAKE 1 TABLET (300 MG TOTAL) BY MOUTH EVERY MORNING THIS REPLACES LEXAPRO 90 tablet 1 5 Active omeprazole (PriLOSEC) 20 mg capsule TAKE 1 CAPSULE BY MOUTH EVERY DAY 90 capsule 3 5 Active metFORMIN XR (GLUCOPHAGE XR) 500 mg 24 hr tablet TAKE 2 TABLETS BY MOUTH DAILY WITH BREAKFAST. 180 tablet 1 5 Active topiramate (TOPAMAX) 50 mg tablet TAKE 1 TABLET BY MOUTH TWICE A DAY 180 tablet 3 5 Active Active Problems Problem Noted Date Diagnosed Date Severe obesity 03/27/2024 Moderate episode of recurrent major depressive d isorder 03/27/2024 Anxiety 07/30/2022 Assessment & Plan (10/07/2022 1:54 PM CDT): Improved. She is sleeping better with the Topamax at bedtime. She is also found that getting new glasses has helped with their dizziness Assessment & Plan (07/30/2022 1:29 PM SUMMER SESSIONS DIRECTOR): States she is in a better [...] 07/30/2022 Assessment & Plan (07/30/2022 8:54 PM SUMMER SESSIONS DIRECTOR): Daily use Intractable headache 07/18/2022 Assessment & Plan (07/30/2022 1:29 PM SUMMER SESSIONS DIRECTOR): Will try adding topamax 25mg at bedtime. D/c melatonin, which she is taking too much of. Could be contributing to vertigo and headaches. F/u 6 weeks Assessment & Plan (07/18/2022 3:00 PM SUMMER SESSIONS DIRECTOR): Having migraines with onset during sexual relations. She has tried propranolol a few times as given by NEIDA Zepeda last week without improvement. Will give indomethacin to try as alternative. Briefly discussed triptan. Will try indomethacin first. Discussed GI SE's. Will only take prn. Call if continues to have headaches COVID-19 07/18/2022 Assessment & Plan (07/18/2022 2:58 PM SUMMER SESSIONS DIRECTOR): Discussed quarantine, offered paxlovid, discussed risks/benefits. Patient declines at this time. Symptoms are mild. Indomethacin given for current headache as well as future headaches prn. May f/u prn Diaphoresis 07/18/2022 Assessment & Plan (07/18/2022 2:59 PM SUMMER SESSIONS DIRECTOR): Having night sweats. She asked what [...] granuloma Assessment & Plan (07/19/2020 9:34 AM SUMMER SESSIONS DIRECTOR): 64 ounces of caffeine free and [...] 07/18/2022 Assessment & Plan (07/19/2020 9:34 AM SUMMER SESSIONS DIRECTOR): 64 ounces of caffeine free and soda free fluid daily Continue omeprazole 20 mg Follow up in 2 months to recheck right posterior vocal cord granuloma Choking episode 07/19/2020 07/18/2022 Assessment & Plan (07/19/2020 9:22 PM SUMMER SESSIONS DIRECTOR): 64 ounces of caffeine free and soda free fluid daily Continue omeprazole 20 mg Follow up in 2 months to recheck right posterior vocal cord granuloma Ganglion cyst of volar aspect of right wrist 0 07/25/2020 Carpal tunnel syndrome of right wrist 03/04/2020 07/25/2020 Overview (03/04/2020): Added automatically from request for surgery [id number] Ganglion of right wrist 03/04/2020 03/0 05/2020 Overview (03/04/2020): Added automatically from request for surgery [id number] Paresthesia of hand, bilateral 10/09/2019 07/18/2022 Assessment [...] upcoming NCV, consultation Difficulty of mother performing 01/01/2007/18/2022 Viral gastroenteritis 12/05/20172017 Overview (12/05/2017): Seen in [facility] 12/04 for n/v/d. MRI without appendicitis and e/o colitis. Rx for zofran/imodium for symptomatic relief Supervision of high-risk pre gnancy, third trimester 12/05/2017 01/23/2018 Overview (12/16/2017): Added automatically from request for surgery [id number] Chronic hypertension affecting 10/29/2017 01/09/2018 Overview (01/02/2018): [...] -r/o for preE in 12/30 in the [facility], rx for fioricet -rC/S scheduled 01/09/18 at 11:30 -review of BP log 01/02 shows normal to mild range, no symptoms Assessment & Plan (12/24/2017 4:14 PM CDT): BP log reviewed. All blood pressures normal/mild range. Reviewed BP parameters and [facility] precautions Continues to have headaches that [...] Overview (01/09/2018): [] Co-management vs. [x] Full [facility] Care Referring Provider: [x] Dating Criteria: DIAMOND [...] 10/29/2017 Assessment & Plan (04/16/2017 1:35 PM SUMMER SESSIONS DIRECTOR): Strep screen neg and aba setup a culture. Gargle with 1/2 peroxide and water several time s a day Bilateral serous otitis media 04/16/2017 10/29/2017 Assessment & Plan (04/16/2017 1:34 PM SUMMER SESSIONS DIRECTOR): ers are not infected. The bluntingo [...] Plan (02/07/2017 9:47 AM CDT): Recommended Flonase [id number] to assist with inter nasal congestion along [...] Encounters Date Type Department Care Team Description 03/22/2025 Orders Only [facility] Primary Care at [address] [place] [id number] Siddhartha Jhaveri MD Annual physical exam (Primary Dx) 03/22/2025 Telephone [facility] Primary Care at [address] [place] [id number] Siddhartha Jhaveri MD Additional Services Or Orders from Last 3 Months Immunizations Immunization Administration Dates Next Due DTP 02/15/1995, 2,06/24/1990,03/27/1990,0 [...] LAPAROSCOPIC CHOLECYSTECTOMY 05/27/2015 - 05/26/2016 Cholecystectomy, laparoscopic [facility] DELIVERY ONLY Section - (Added by TW Conv) MA CHOLECYSTECTOMY Cholecystectomy - (Added by TW Conv) SECTION CHOLECYSTECTOMY WISDOM TOOTH EXTRACTION FOOT SURGERY TUBAL LIGATION Medical History Medical History Date Comments Polycystic ovary syndrome Hypertension during Polycystic ovarian disease Depression Chronic bronchitis (HCC) Ganglion cyst of volar aspec t of right wrist 03/04/2020 Carpal tunnel syndrome of right wrist 03/04/2020 Added automatically from request for surgery [id number] History of severe pre-eclampsia 09/03/2017 Choking episode [...] on file Legal Sex Female 12:32 AM SUMMER SESSIONS DIRECTOR Gender Identity Not on file Sexual [...] Spinal N Livin g 8 9 MILLE RJENNIFER Complications:Other (Comment ),None Delivery Location:[facility] Main C ampus ([facility]LD) Last Filed Vital Signs Vital Sign Reading Time Taken Comments Blood Pressure 121/88 07/01/2024 3:21 PM SUMMER SESSIONS DIRECTOR Pulse 83 07/01/2024 3:21 PM SUMMER SESSIONS DIRECTOR Temperature 36.9 C (98.5 F) 07/01/2024 3:21 PM SUMMER SESSIONS DIRECTOR Respiratory Rate 18 07/01/2024 3:21 PM SUMMER SESSIONS DIRECTOR Oxygen Saturation 99% 07/01/2024 3:21 PM SUMMER SESSIONS DIRECTOR Inhaled Oxygen Concentration - - Weight 90.9 kg (200 lb 8 oz) 07/01/2024 3:21 PM SUMMER SESSIONS DIRECTOR Height 157.5 cm (5' 2.01) 07/01/2024 3:21 PM CS T Body Mass Index 36.66 07/01/2024 3:21 PM SUMMER SESSIONS DIRECTOR Plan of Treatment Health Maintenance Due Date Last Done Comments Cervical Cancer Screening 1989 Hepatitis C Screening 1989 Varicella Vaccines (2 of 2 - 2-dose childhood series) 05/10/1995 02/15/1995 Pneumococcal vaccine <65 (1 of 2 - PCV) 2008 HPV Vaccines (1 - 3-dose SCD M series) 2016 Covid-19 Vaccine (2 - 2024-2 6 season) 2025 09/01/2020 Influenza Vaccine (#1) 2025 07/18/2022, 2020 Depression Screening 03/27/2025 03/27/2024, 03/22/2023, 09/28/2022, Additional history exists Regular Well Visit/Exam 18-64 03/27/2025, 03/22/2023, 06/20/2021, Additional history exists DTaP/Tdap/Td Vaccine (7 - Td or Tdap) 11/01/2027 10/31/2017, 02/15/1995, 05/29/1991, Additional history exists Hepatitis B Screening Completed 05/10/1999, 999 Insurance [facility] [place] For more information, please contact: [phone] * Full Code (Latest Code Status on File) Date Activated Date Inactivated Comments 01/09/2018 4:20 PM 01/11/2018 6:59 PM * Full Code Date Activated Date Inactivated Comments 01/09/2018 7:54 AM 01/09/2018 4:20 PM Full CPR in case of cardiopulmonary arrest * Full Code Date Activated Date Inactivated Comments 12/05/2017 3:33 AM 12/05/2017 7:02 AM Care Teams [place] Support Worker Relationship Specialty Start Date End Date Siddhartha Jhaveri MD PCP - General 10/14/17
--- OUTSIDE RECORDS SUMMARY | 2025-03-23 07:56 | XMS_ITS | Encounter Summary ---
Author Organization [facility] Address [address] [place] [address] Phone Care Team Providers Care Cafe Team Member Name Role Phone Max Granados MD Primary Care Provider + [phone] Siddhartha Jhaveri MD Primary Care Provider Max Granados MD Primary Care Provider + [phone] Max Granados MD Primary Care Provider + [phone] Max Granados MD Primary Care Provider + [phone] Max Granados MD Primary Care Provider + [phone] Max Granados MD Primary Care Provider + [phone] Siddhartha Jhaveri MD Primary Care Provider Siddhartha [...] on file Legal Sex Female 12:32 AM 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 LENDING RELATIONSHIP 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 Gender Identity Not on file Sexual Orientation Not on file documented as of this encounter Plan of Treatment Not on file documented as of this encounter Procedures Procedure Name Priority Date/Time Associated Diagnosis Comments OBSTETRIC/GYNECOLOGY ULTRASONOGRAPHY REPORT 08/22/2017 4:06 PM CDT OBSTETRIC/GYNECOLOGY ULTRASONOGRAPHY REPORT 07/26/2017 10:07 AM COMMERCIAL LENDING RELATIONSHIP MANAGER documented in this encounter Results * OBSTETRIC/GYNECOLOGY ULTRASONOGRAPHY REPORT (08/22/2017 4:06 PM CDT) Anatomical Region Laterality Modality Ultrasound us Provider Scanning IMG OB US PROCEDURES Final Res ult * OBSTETRIC/GYNECOLOGY ULTRASONOGRAPHY REPORT (07/26/2017 10:07 AM COMMERCIAL LENDING RELATIONSHIP MANAGER) Anatomical Region Laterality Modality Ultrasound us Provider Scanning IMG OB US PROCEDURES Final Res ult documented in this encounter Visit Diagnoses Not on filedocumented in this encounter Additional Health Concerns Infection Onset Date Last Indicated Resolved Time COVID: Suspected 07/18/2022 07/18/2022 07/18/2022 12:57 PM COMMERCIAL LENDING RELATIONSHIP MANAGER COVID19 07/18/2022 07/18/2022 07/28/2022 3:05 AM COMMERCIAL LENDING RELATIONSHIP MANAGER COVID: Recovered Comment:Added based on recent COVID infection. 07/28/2022 07/30/2022 10/26/2022 3:05 AM C DT documented as of this encounter Care Teams Cafe Team Member Relationship Specialty Start Date End Date Max Granados MD [address] [place] [address] PCP - General 07/26/17 07/26/17 Siddhartha Jhaveri MD [address] [place] [address] PCP - General 07/27/17 08/15/17 Max Granados MD [address] [place] [address] PCP - General 08/16/17 08/21/17 Max Granados MD [address] [place] [address] PCP - General 08/22/17 09/02/17 Max Granados MD [address] [place] [address] PCP - General 09/03/17 09/03/17 Max Granados MD [address] [place] [address] PCP - General 09/04/17 10/02/17 Max Granados MD [address] [place] [address] PCP - General 10/03/17 10/03/17 Siddhartha Jhaveri MD [address] [place] [address] PCP - General 10/04/17 10/13/17 Siddhartha Jhaveri MD [address] [place] [address] PCP - General 10/14/17 documented as of this encounter
--- OUTSIDE RECORDS SUMMARY | 2025-03-23 07:56 | XMS_ITS | Encounter Summary ---
Author Organization [facility] Healthcare Address [address] [place] [address] Care Team Providers Care Manager Technical Services Name Role Phone Siddhartha Jhaveri MD Primary Care Provider Encounter Details Date Type Department Care Team (Late st Contact Info) Description 03/22/2025 Orders Only [facility] Medical Group Primary Care at [address] [place] [address] Siddhartha Jhaveri MD [address] [place] [address] [address] [place] [address] Annual physical exam (Primary Dx) Social History Tobacco Use Types Packs/Day Years [...] on file Legal Sex Female 12:32 AM 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 Gender Identity Not on file Sexual Orientation Not on file documented as of this encounter Plan of Treatment Scheduled Orders Name Type Priority Associated Diagnoses Orde r Schedule Lipid panel Lab Routine Annual physical exam Expected: 03/22/2025 (Approximate), Expires: 06/20/2025 Comprehensive metabolic panel Lab Routine Annual physical exam Expected: 03/22/2025 (Approximate), Expires: 06/20/2025 documented as of this encounter Visit Diagnoses Diagnosis Annual physical exam- Primary Routine general medical examination at a health care facility documented in this encounter Care Teams Manager Technical Services Relationship Specialty Start Date End Date Siddhartha Jhaveri MD PCP - General 10/14/17 documented as of this encounter
--- OUTSIDE RECORDS SUMMARY | 2025-03-23 07:56 | XMS_ITS | Encounter Summary ---
Author Organization [facility] Healthcare Address [address] [place] [address] Care Team Providers Care Belt Dresser Name Role Phone Siddhartha Jhaveri MD Primary Care Provider Reason for Visit * Reason Onset Date Comments Additional Services Or Orders 03/22/2025 Encounter Details Date Type Department Care Team (Late st Contact Info) Description 03/22/2025 Telephone [facility] Medical Group Primary Care at [address] [place] [address] Siddhartha Jhaveri MD [address] [place] [address] [address] [place] [address] Additional Services Or Orders Social History Tobacco Use Types Packs/Day Years [...] on file 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 She said she is going to lab tomorrow. I advised her that orders were faxed. Does message need to be routed? Yes-FYI Only * Telephone Encounter - Annmarie Whitley CLT - 03/22/2025 2:31 PM CDT Lab orders were about to ; reordered and faxed as requested TO FAX [phone]. Please make pt aware. * Telephone Encounter - Annmarie Whitley CLT - 03/22/2025 2:27 PM CDT Lm for pt to call back? When is pt going to get labs drawn? * Telephone Encounter - Nenita Dwyer - 03/22/2025 2:06 PM CDT Additional Services or Orders Type of Service Requested:Labs Reason for Request (e.g. condition/symptom, date of COVID exposure if applicable): annual exam Details Regarding Additional Services (e.g. type of home health, type of equipment, type of test, etc.): Labs Where will services be performed? (if outside of the practice, facility name, address, phone/fax offacility): [facility]-[phone] Additional Comments: patient is asking for her lab orders be faxed to [facility] so she can get her labs done before her appt on 04/02/25. Does message need to be routed? Yes-Action Needed documented in this encounter Plan of Treatment Not on file documented as of this encounter Visit Diagnoses Not on filedocumented in this encounter Care Teams Belt Dresser Relationship Specialty Start Date End Date Siddhartha Jhaveri MD PCP - General 10/14/17 documented as of this encounter
--- OUTSIDE RECORDS SUMMARY | 2025-03-23 07:56 | XMS_ITS | Clinical Summary ---
Author Organization [facility] Address [address] [place] [address] Phone Care Team Providers Care Tumbling And Rolling Supervisor Name Role Phone Siddhartha Jhaveri MD Primary [...] Comments Blood Pressure 148/91 06/17/2017 6:15 PM CIVIL CADD TECHNICIAN Pulse 75 06/17/2017 6:15 PM CIVIL CADD TECHNICIAN Temperature 36.4 C (97.6 F) 06/17/2017 1:38 PM CIVIL CADD TECHNICIAN Respiratory Rate 18 06/17/2017 6:15 PM CIVIL CADD TECHNICIAN Oxygen Saturation 98% 06/17/2017 6:15 PM CIVIL CADD TECHNICIAN Inhaled Oxygen Concentration - - Weight 108.9 kg (240 lb) 06/17/2017 1:38 PM CIVIL CADD TECHNICIAN Height 162.6 cm (5' 4) 06/17/2017 1:38 PM CIVIL CADD TECHNICIAN Body Mass Index 41.2 06/17/2017 1:38 PM CIVIL CADD TECHNICIAN Plan of Treatment Not on file Care Teams Tumbling And Rolling Supervisor Relationship Specialty Start Date End Date Siddhartha Jhaveri MD [address] [place] [address] [address] [place] [id number] PCP - General Internal Medicine 06/17/17
--- OUTSIDE RECORDS SUMMARY | 2025-03-23 07:56 | XMS_ITS | Encounter Summary ---
Author Organization [facility] Address [address] [place] [address] Phone Care Team Providers Care Demand Planning Manager Name Role Phone Max Granados MD Primary Care Provider + [phone] Max Granados MD Primary Care Provider + [phone] Max Granados MD Primary Care Provider + [phone] Siddhartha Jhaveri MD Primary Care Provider Siddhartha [...] on file Legal Sex Female 12:32 AM GLASS BLOCK BENDER Gender Identity Not on file Sexual Orientation [...] COVID: Suspected 07/18/2022 07/18/2022 07/18/2022 12:57 PM GLASS BLOCK BENDER COVID19 07/18/2022 07/18/2022 07/28/2022 3:05 AM GLASS BLOCK BENDER COVID: Recovered Comment:Added based on recent COVID infection. 07/28/2022 07/30/2022 10/26/2022 3:05 AM C DT documented as of this encounter Care Teams Demand Planning Manager Relationship Specialty Start Date End Date Mxa Granados MD [address] [place] [address] PCP - General 09/03/17 09/03/17 Max Granados MD [address] [place] [address] PCP - General 09/04/17 10/02/17 Max Granados MD [address] [place] [address] PCP - General 10/03/17 10/03/17 Siddhartha Jhaveri MD [address] [place] [address] PCP - General 10/04/17 10/13/17 Siddhartha Jhaveri MD [address] [place] [address] PCP - General 10/14/17 documented as of this encounter
[2025-03-23 08:41] LABS: Alanine Aminotransferase 23 U/L (6-35); Albumin Level 4.5 g/dL (3.5-5.1); Alkaline Phosphatase 57 U/L (38-126); Anion Gap 11 mmol/L (4-12); Aspartate Amino Transferase 25 U/L (14-36); Bilirubin,Total 0.6 mg/dL (0.2-1.3); Blood Urea Nitrogen 7 mg/dL (7-17); Calcium 9.7 mg/dL (8.4-10.2); Carbon Dioxide 25 mmol/L (22-30); Chloride 105 mmol/L (98-107); Cholesterol 156 mg/dL (0-200); Estimated Glomerular Filt Rate > 60; Glucose 99 mg/dL (65-110); HDL Direct 50 mg/dL; Osmolality Calculated 290 mOsm/kg (285-295); Potassium 4.1 mmol/L (3.4-5.0); Sodium 141 mmol/L (137-145); Total Protein 8.4 g/dL (6.3-8.2); Triglycerides 182 mg/dL (<150)
== END 2025-03-23 07:49 | disposition home or self-care (01) ==
LOC: CHSLAB 07:51
PROVIDERS: PCP Internal Medicine; Visit Provider Internal Medicine
DX: Z00.00 Encounter for general adult medical examination without abnormal findings (principal)
CPT/HCPCS: 36415; 80053; 80061